=== PATIENT | female | born 1935 | race Caucasian/White ===

== ENCOUNTER 2017-02-10 11:02 | Inpatient (IN) ==
[2017-02-10 11:32] LABS: Basophils # 0.1 K/mcL (0.0-0.2); Basophils % 0.4 %; Eosinophils # 0.2 K/mcL (0.0-0.6); Eosinophils % 1.5 %; Hematocrit 39.2 % (35.3-44.9); Immature Granulocytes % 0.6 % (0-4); Lymphocytes # 2.3 K/mcL (0.6-4.6); Lymphocytes % 17.3 %; Mean Corpuscular HGB Conc 33.2 g/dL (31.6-35.5); Mean Corpuscular Hemoglobin 29.8 pg (28.0-33.3); Mean Corpuscular Volume 89.9 fL (83.0-100.0); Mean Platelet Volume 11.4 fL (9.4-12.4); Monocytes # 0.8 K/mcL (0.0-1.3); Monocytes % 5.8 %; Neutrophils # 9.7 K/mcL (1.6-8.9); Platelet Count 173 K/mcL (140-400); Red Blood Count 4.36 M/mcL (3.82-4.97); Red Cell Distribution Width 13.2 % (11.5-14.5); Segmented Neutrophils % 74.4 %
--- NOTE | 2017-02-10 11:46 | Emergency Department Note ---
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 No fever cough or sputum. Patient notices shooting sensation going down both her legs and just feeling very fatigued. Denies vomiting diarrhea or dysuria. No recent ill contacts exotic food or recent travel. Patient had a chemical stress test last week which was otherwise unremarkable. Patient says she has had some fluttering in her chest. Patient here for further evaluation - Related Data Home Medications Medication Instructions Recorded Confirmed Atorvastatin [Lipitor] 40 mg PO HS 02/10/17 02/16/17 Glimepiride [Amaryl] 4 mg PO BID 02/10/17 02/16/17 Lisinopril [Zestril] 40 mg PO DAILY 02/10/17 02/16/17 Omeprazole [PriLOSEC] 20 mg PO DAILY 02/10/17 02/16/17 SitaGLIPtin [Januvia] 100 mg PO DAILY 02/10/17 02/16/17 Tramadol HCl [Ultram] 50 mg PO BID PRN 02/10/17 02/16/17 Ascorbic Acid [Vitamin C] 100 mg PO DAILY 02/16/17 02/16/17 Calcium Carbonate/Vitamin D3 1 each PO DAILY 02/16/17 02/16/17 [Calcium 500 + Vit D Caplet] Levothyroxine [Synthroid] 100 mcg PO DAILY 02/16/17 02/16/17 Multivit-Min/Iron Fum/Folic AC 1 each PO DAILY 02/16/17 02/16/17 [Rulwf-[id number]-Ckqhqemi Tablet] Previous Rx's Medication Instructions Recorded Doxycycline 100 mg PO BIDWM #18 capsule 02/12/17 Metoprolol [Lopressor] 25 mg PO BID #60 tablet 02/12/17 amLODIPine [Norvasc] 5 mg PO DAILY #30 tablet 02/12/17 Aspirin 81 mg PO DAILY #30 tab.chew 02/17/17 Nitroglycerin 0.4 mg SL Q5MIN #30 tab.subl 02/17/17 Ticagrelor [Brilinta] 90 mg PO BID #60 tablet 02/17/17 Allergies Allergy/AdvReac Type Severity Reaction Status Date / Time Penicillins Allergy Rash Verified 02/10/17 11:13 metformin AdvReac See Verified 02/10/17 11:13 Comments All systems ED: reviewed and negative except as stated. Constitutional: Reports: weakness Cardiovascular: Reports: palpitations, dyspnea on exertion, orthopnea Past Medical History - Past Medical History Attestation: Yes The following information was validated with the patient. Source: patient, old records reviewed, obtained from family Medical history: Reports: diabetes, hypertension, thyroid disease Psychiatric history: Reports: no psych history - Social History Smoking Status: Never smoker Alcohol use: Reports: none Drug use: Reports: none Physical Exam - General Limitations: no limitations General appearance: alert, in distress - Head Head exam: atraumatic, normocephalic - Eye Eye exam: Present: normal appearance, PERRL - ENT ENT exam: normal exam, normal oropharynx - Neck Neck exam: Present: normal inspection, full ROM - Chest Chest inspection: Present: normal inspection - Respiratory Respiratory exam: Present: normal lung sounds bilaterally, respiratory distress - Cardiovascular Cardiovascular exam: Present: irregular rhythm (Patient had regular premature beats) - Abdominal Exam Abdominal exam: Present: soft, Non-Tender - Extremities Exam Extremities exam: Present: normal inspection, full ROM. Absent: pedal edema - Expanded Lower Extremity Exam Neurovascular/Tendon exam: Present: normal capillary refill Gait: not tested/not observed - Back Exam Back exam: Present: normal inspection, full ROM - Neurological Exam Neurological exam: Present: alert, oriented X3, CN II-XII intact - Psychiatric Psychiatric exam: Present: normal affect, normal mood Course Vital Signs Temperature 98.0 F 02/10/17 11:06 Pulse Rate 58 02/10/17 11:06 Respiratory Rate 18 02/10/17 11:06 Blood Pressure 165/95 02/10/17 11:06 O2 Sat by Pulse Oximetry 100 02/10/17 11:06 Temperature 97.9 F 02/12/17 14:58 Pulse Rate 86 02/12/17 14:58 Respiratory Rate 16 02/12/17 14:58 Blood Pressure 151/79 02/12/17 14:58 O2 Sat by Pulse Oximetry 96 02/12/17 14:58 Oxygen Delivery Oxygen Delivery Room Air Shortness of Breath/Dyspnea - Medical Records Medical records reviewed: Yes I reviewed the patient's medical records. - Lab Data Lab results reviewed: Yes I reviewed the patient's lab results. Result diagrams: 02/12/17 05:02 02/12/17 05:02 Lab Results 02/10/17 02/10/17 02/10/17 Range/Units 11:26 11:26 11:26 WBC 13.0 H (4.3-11.1) K/mcL RBC 4.36 (3.82-4.97) M/mcL Hgb 13.0 (11.5-15.4) g/dL Hct 39.2 (35.3-44.9) % MCV 89.9 (83.0-100.0) fL MCH 29.8 (28.0-33.3) pg MCHC 33.2 (31.6-35.5) g/dL RDW 13.2 (11.5-14.5) % Plt Count 173 (140-400) K/mcL MPV 11.4 (9.4-12.4) fL Immature Gran % 0.6 (0-4) % Seg Neutrophils % 74.4 % Lymphocytes % 17.3 % Monocytes % 5.8 % Eosinophils % 1.5 % Basophils % 0.4 % Neutrophils # 9.7 H (1.6-8.9) K/mcL Lymphocytes # 2.3 (0.6-4.6) K/mcL Monocytes # 0.8 (0.0-1.3) K/mcL Eosinophils # 0.2 (0.0-0.6) K/mcL Basophils # 0.1 (0.0-0.2) K/mcL D-Dimer (0-500) ng/mLFEU Sodium 135 L (136-145) mEq/L Potassium 5.0 H (3.5-4.5) mEq/L Chloride 100 (98-109) mEq/L Carbon Dioxide 24 (19-29) mEq/L BUN 27 H (7-20) mg/dL Creatinine 1.65 H (0.57-1.11) mg/dL Est GFR ( Amer) 36 L (> 60) Est GFR (Non-Af Amer) 30 L (> 60) BUN/Creatinine Ratio 16 (6-26) Glucose 390 H (70-99) mg/dL Calculated Osmolality 301 H (280-300) Lactic Acid 3.1 H (0.5-2.2) mmol/L Calcium 8.7 (8.6-10.8) mg/dL Troponin I (0-0.03) ng/mL B-Natriuretic Peptide (0-100) pg/mL Urine Color (Yellow) Urine Clarity (Clear) Urine pH (5.0-8.0) pH Units Ur Specific [place] (1.010-1.025) Urine Protein (Neg-Trace) mg/dL Urine Glucose (UA) (Normal) mg/dL Urine Ketones (Negative) mg/dL Urine Blood (Negative) Urine Nitrite (Negative) Urine Bilirubin (Negative) Urine Urobilinogen (Normal) mg/dL Ur Leukocyte Esterase (Negative) Urine Microscopic RBC (0-3) per hpf Urine Microscopic WBC (0-3) per hpf Ur Squamous Epith Cells (None-Few) per lpf Urine Bacteria (None-Few) per hpf Hyaline Casts (None-Few) per lpf 02/10/17 02/10/17 02/10/17 Range/Units 11:26 11:26 11:26 WBC (4.3-11.1) K/mcL RBC (3.82-4.97) M/mcL Hgb (11.5-15.4) g/dL Hct (35.3-44.9) % MCV (83.0-100.0) fL MCH (28.0-33.3) pg MCHC (31.6-35.5) g/dL RDW (11.5-14.5) % Plt Count (140-400) K/mcL MPV (9.4-12.4) fL Immature Gran % (0-4) % Seg Neutrophils % % Lymphocytes % % Monocytes % % Eosinophils % % Basophils % % Neutrophils # (1.6-8.9) K/mcL Lymphocytes # (0.6-4.6) K/mcL Monocytes # (0.0-1.3) K/mcL Eosinophils # (0.0-0.6) K/mcL Basophils # (0.0-0.2) K/mcL D-Dimer 802 H (0-500) ng/mLFEU Sodium (136-145) mEq/L Potassium (3.5-4.5) mEq/L Chloride (98-109) mEq/L Carbon Dioxide (19-29) mEq/L BUN (7-20) mg/dL Creatinine (0.57-1.11) mg/dL Est GFR ( Amer) (> 60) Est GFR (Non-Af Amer) (> 60) BUN/Creatinine Ratio (6-26) Glucose (70-99) mg/dL Calculated Osmolality (280-300) Lactic Acid (0.5-2.2) mmol/L Calcium (8.6-10.8) mg/dL Troponin I 0.02 (0-0.03) ng/mL B-Natriuretic Peptide 189 H (0-100) pg/mL Urine Color (Yellow) Urine Clarity (Clear) Urine pH (5.0-8.0) pH Units Ur Specific [place] (1.010-1.025) Urine Protein (Neg-Trace) mg/dL Urine Glucose (UA) (Normal) mg/dL Urine Ketones (Negative) mg/dL Urine Blood (Negative) Urine Nitrite (Negative) Urine Bilirubin (Negative) Urine Urobilinogen (Normal) mg/dL Ur Leukocyte Esterase (Negative) Urine Microscopic RBC (0-3) per hpf Urine Microscopic WBC (0-3) per hpf Ur Squamous Epith Cells (None-Few) per lpf Urine Bacteria (None-Few) per hpf Hyaline Casts (None-Few) per lpf 02/10/17 Range/Units 13:15 WBC (4.3-11.1) K/mcL RBC (3.82-4.97) M/mcL Hgb (11.5-15.4) g/dL Hct (35.3-44.9) % MCV (83.0-100.0) fL MCH (28.0-33.3) pg MCHC (31.6-35.5) g/dL RDW (11.5-14.5) % Plt Count (140-400) K/mcL MPV (9.4-12.4) fL Immature Gran % (0-4) % Seg Neutrophils % % Lymphocytes % % Monocytes % % Eosinophils % % Basophils % % Neutrophils # (1.6-8.9) K/mcL Lymphocytes # (0.6-4.6) K/mcL Monocytes # (0.0-1.3) K/mcL Eosinophils # (0.0-0.6) K/mcL Basophils # (0.0-0.2) K/mcL D-Dimer (0-500) ng/mLFEU Sodium (136-145) mEq/L Potassium (3.5-4.5) mEq/L Chloride (98-109) mEq/L Carbon Dioxide (19-29) mEq/L BUN (7-20) mg/dL Creatinine (0.57-1.11) mg/dL Est GFR ( Amer) (> 60) Est GFR (Non-Af Amer) (> 60) BUN/Creatinine Ratio (6-26) Glucose (70-99) mg/dL Calculated Osmolality (280-300) Lactic Acid (0.5-2.2) mmol/L Calcium (8.6-10.8) mg/dL Troponin I (0-0.03) ng/mL B-Natriuretic Peptide (0-100) pg/mL Urine Color Yellow (Yellow) Urine Clarity Clear (Clear) Urine pH 7.0 (5.0-8.0) pH Units Ur Specific [place] 1.010 (1.010-1.025) Urine Protein 100 H (Neg-Trace) mg/dL Urine Glucose (UA) 500 H (Normal) mg/dL Urine Ketones Negative (Negative) mg/dL Urine Blood Negative (Negative) Urine Nitrite Negative (Negative) Urine Bilirubin Negative (Negative) Urine Urobilinogen Normal (Normal) mg/dL Ur Leukocyte Esterase Negative (Negative) Urine Microscopic RBC 5-15 H (0-3) per hpf Urine Microscopic WBC 0-3 (0-3) per hpf Ur Squamous Epith Cells Many H (None-Few) per lpf Urine Bacteria None Seen (None-Few) per hpf Hyaline Casts None Seen (None-Few) per lpf - Radiology Data Radiology results reviewed: Yes I reviewed the patient's radiology results. - EKG Data EKG results narrative: Twelve-lead EKG interpreted without cardiology assistance shows the following: Sinus rhythm at 91 bpm with frequent ventricular premature complexes in a bigeminal pattern Normal TX and QT corrected. And QRS duration minus the PVCs. Mild ST depression. This rhythm is new compared to a prior EKG on 2516 which showed PVCs but not in a bigeminal pattern.
[2017-02-10 11:48] LABS: Calcium 8.7 mg/dL (8.6-10.8)
[2017-02-10] MEDS ORDERED: 0.9 % Sodium Chloride 500 ML IVC ONE (12:14)
[2017-02-10 13:33] LABS: Bilirubin,Urine Negative (Negative); Blood,Urine Negative (Negative); Clarity,Urine Clear (Clear); Color,Urine Yellow (Yellow); Glucose,Urine (UA) 500 mg/dL (Normal); Ketones,Urine Negative (Negative); Leukocyte Esterase,Urine Negative (Negative); Nitrite,Urine Negative (Negative); Protein,Urine 100 mg/dL (Neg-Trace); Urobilinogen,Urine Normal (Normal)
[2017-02-10 13:35] LABS: Bacteria,Urine None Seen per hpf (None-Few); Hyaline Casts,Urine None Seen per lpf (None-Few); Squamous Epithelial Cell,Urine Many per lpf (None-Few); WBC,Urine 0-3 per hpf (0-3)
--- NOTE | 2017-02-10 13:41 | Internal Med History&Physical ---
Date of Encounter: 02/10/17 Time of Encounter: 13:31 Assessment and Plan (1) Sepsis Current visit: Yes Status: Acute 82/female Has multiple comorbid conditions. Was recently on the last dose of steroid for long duration. Came to emergency room with dizziness and presyncopal episode. Noted that patient has a white blood count which is elevated to 17,000. Patient has elevated lactic acid : more than 3. Patient patient was treated aggressively in the emergency room with the IV fluids and antibiotics. Noted that lactic acid is downward trending. Plan: We will continue levofloxacin/Flagyl Patient is allergic to penicillin and Zosyn was tried but patient has heart/ warm feeling. We will repeat labs tomorrow. We will monitor her very closely. Qualifiers: Sepsis type: sepsis due to unspecified organism Qualified Code(s): A41.9 - Sepsis, unspecified organism (2) Dizziness Current visit: Yes Status: Acute Dizziness is likely secondary to sepsis. (3) PVCs (premature ventricular contractions) Current visit: Yes Status: Acute Patient has a ventricular bigeminy. She underwent cardiology evaluation previously. Cardiology consultation. recommended beta tequila by cardiology. We will follow recommendations from cardiology. (4) DVT prophylaxis Current visit: Yes Status: Acute SCD Medical decision making: This patient has a moderate to severe risk of worsening in spite of being on appropriate medication due to underlying complex medical condition. Internal Medicine - H&P: HPI Chief complaint: Dizziness Admitted From: Emergency Dept Plans for Post Hospital Care: Home History of present illness: PCP: Dr Peterson Nugent. Brief PMH: Diabetes, hypertension, dyslipidemia, mild obesity, extensive rash for which she was treated with steroids long duration 2 courses, patient just stop steroid couple of days ago. History of present illness: Patient was working in her kitchen this morning around 10 AM and at that point she realized that she is feeling dizzy. Patient was about to pass out. Patient did not pass out. Patient was under the impression she is going to get a fall but she break the fall by holding the wall and she never had a fall. Patient called her son and asked for help. The family use pretty close by and they came and evaluated the patient. Patient did not had a fall/patient did not had any injury. In view of the persistent dizziness since decided to bring patient to the hospital for further evaluation. Patient had a mild left-sided abdominal pain. Patient denies chest pain, nausea, vomiting, dizziness. Workup in the emergency room: Patient was evaluated in the emergency room. Basic labs are from. Noted that patient has a altered renal function. Noted that patient has an elevated d-dimer but that is an age-appropriate hence CT angiogram is not indicated. Also noted that patient has a elevated lactic acid. Reason for admission: Severe sepsis likely source unknown at this time but we will do more tests to find the source for the sepsis. Family history: Noncontributory Past Med Surg Social Fam HX - Past Medical History Medical history: diabetes, hypertension, thyroid disease Psychiatric history: no psych history - Social History Smoking Status: Never smoker Alcohol use: none Drug use: none - Family History Brother Living Status: Still Living Hx Family Cardiac Disorders: Yes Internal Medicine - H&P: Meds Atorvastatin [Lipitor] 40 mg PO HS 02/10/17 [History] Glimepiride [Amaryl] 4 mg PO BID 02/10/17 [History] Levothyroxine Sodium [Levoxyl] 100 mcg PO DAILY 02/10/17 [History] Lisinopril [Zestril] 40 mg PO DAILY 02/10/17 [History] Omeprazole [PriLOSEC] 20 mg PO DAILY 02/10/17 [History] SitaGLIPtin [Januvia] 100 mg PO DAILY 02/10/17 [History] Tramadol HCl [Ultram] 50 mg PO BID PRN 02/10/17 [History] cloNIDine HCl [Clonidine HCl] 0.2 mg PO BID 02/10/17 [History] predniSONE [PredniSONE] 10 mg PO AD 02/10/17 [History] 3 Allergy/AdvReac Type Severity Reaction Status Date / Time Penicillins Allergy Rash Verified 02/10/17 11:13 metformin AdvReac See Verified 02/10/17 11:13 Comments All Systems PM: A 10-system review of systems was performed and is negative for pertinent findings except as documented above in the HPI. - Constitutional Constitutional: no chills, no fever(s), no night sweats - EENT Eyes: no change in vision, no discharge, no pain, no photophobia Ears: no ear discharge, no ear pain, no tinnitus Nose, mouth and throat: no dysphagia, no nasal discharge, no neck pain, no sore throat - Cardiovascular Cardiovascular ROS IM: diaphoresis, lightheadedness, no chest pain, no dyspnea, no palpitations, no syncope - Respiratory Respiratory: no cough, no dyspnea, no wheezing, no excessive phlegm production - Gastrointestinal Gastrointestinal: no abdominal pain, no diarrhea, no hematemesis, no hematochezia, no melena, no nausea, no vomiting - Genitourinary Genitourinary: no change in urinary stream, no dysuria, no flank pain, no hematuria - Musculoskeletal Musculoskeletal ROS IM: no numbness, no tingling - Integumentary Integumentary IM: no rash, no unusual bruising - Neurological Neurological ROS: focal weakness, numbness, no confusion, no convulsions, no tingling, no tremor(s) - Hematologic/Lymphatic Hematologic/Lymphatic: no easy bruising - Constitutional Vitals: Temp Pulse Resp BP Pulse Ox 98.0 F 58 16 158/98 100 02/10/17 11:06 02/10/17 11:06 02/10/17 13:09 02/10/17 13:09 02/10/17 11:06 General appearance: Present: A&O X 3, pleasant, answers questions appropriately - Head Head exam: Present: atraumatic, normocephalic - Eye Eye exam: Present: PERRL, conjuntiva pink, sclera anicteric Pupils: Present: PERRL - Neck Neck exam general surgery: Present: supple, trachea midline. Absent: lymphadenopathy - Respiratory Respiratory exam: Present: CTAB. Absent: accessory muscle use, rales, rhonchi, wheezes - Cardiovascular Cardiovascular exam: Present: RRR, +S1, +S2. Absent: diastolic murmur, gallop, rubs, systolic murmur - GI/Abdominal GI/Abdominal exam: Present: normal bowel sounds, soft, no peritoneal signs. Absent: distended, tenderness - Extremities Exam Extremities exam: Present: warm, radial pulses palpable and symmetrical. Absent : calf tenderness, cyanotic, pedal edema - Neurological Exam Neurological exam: Present: CN II-XII intact, oriented X3, no focal deficits. Absent: pronater drift, facial droop, speech deficit - Skin Skin exam: Present: dry, intact Internal Med - H&P Results - Labs CBC & Chem 7: 02/10/17 11:26 02/10/17 11:26
[2017-02-10] MEDS ORDERED: Naloxone 0.4 MG/ML INJ IVP PRN (13:46)
[2017-02-10] MEDS ORDERED: Acetaminophen 325 MG TABLET PO PRN (13:46)
[2017-02-10] MEDS ORDERED: Levofloxacin 750 MG/150 ML 750 MG/150 ML BAG IVPB SCH (14:00)
--- NOTE | 2017-02-10 14:05 | Cardiology Consult Note ---
Date of Encounter: 02/10/17 Time of Encounter: 14:00 Assessment and Plan (1) Dizziness Current Visit: Yes Status: Acute Per Cardiology: Dizziness currently resolved. Denies any syncope or falls. Continue to monitor telemetry. Blood cultures pending per primary service for left arm rash. Blood presures stable, actually elevated. Check orthostatics. (2) PVCs (premature ventricular contractions) Current Visit: Yes Status: Acute Per Cardiology: ECG from December 2016 shows sinus rhythm with PVCs. Patient noted to have frequent PVCs and bigeminy on nuclear stress test 02/2017. Nuclear stress test negative for ischemia. K+ = 5.0, Mag pending. Recent TSH low 12/2016-- further management per primary service. Will monitor tele and check echo. Will discuss with Dr. Gutierrez potential for further ischemic eval. if deemed appropriate. Discussion w patient/family: The assessment and plan as outlined above was discussed with the patient and/or family members who expressed understanding and agreement. All questions were answered. Thank you for involving us in the care of your patient. Please call with any questions. History of Present Illness Consult date: 02/10/17 Requesting physician: Marcus Lion Consult reason: PVCs, SOB Chief complaint: Dizziness History of present illness: Ms. Romano is a 82 year old female with a relevant PMH: diabetes, hypertension, hypothyroidism, dyslipidemia. Noted to have recent "extensive rash for which she was treated with steroids long duration 2 courses". She denies any history of nicotine abuse. Reports family history with brother having CABG in his 60s, mother from CHF at 79, and dad with history of DC. Cardiology c/s for concerns of PVCs on stress test and dizziness. Patient reports she initially had outpatient stress test ordered for occasional left-sided chest twinges that last for a few seconds and subsided. She reports those symptoms have now resolved. Patient has pending cardiology consult as outpatient next week for frequent PVCs noted on stress test. She reports yesterday developed episode of dizziness that lasted for about 30 minutes with no other symptoms. She reports they reoccurred this morning with shortness of breath and lasted for many hours. She also reports experiencing some bilateral leg burning during these episodes. She denies any syncope or falls. Denies any chest pain. Currently reports some left-sided pain with deep inspiration. She reports negative stress test around 2009 and has never had heart catheterization. Reports recent treatment for rash to her left arm. Past Med Surg Social Fam HX - Past Medical History Attestation: Yes The following information was validated with the patient. Source: patient, old records reviewed, obtained from family Medical history: diabetes, hyperlipidemia, hypertension, thyroid disease Psychiatric history: no psych history - Social History Smoking Status: Never smoker Alcohol use: none Drug use: none Medications and Allergies Atorvastatin [Lipitor] 40 mg PO HS 02/10/17 [History] Glimepiride [Amaryl] 4 mg PO BID 02/10/17 [History] Levothyroxine Sodium [Levoxyl] 100 mcg PO DAILY 02/10/17 [History] Lisinopril [Zestril] 40 mg PO DAILY 02/10/17 [History] Omeprazole [PriLOSEC] 20 mg PO DAILY 02/10/17 [History] SitaGLIPtin [Januvia] 100 mg PO DAILY 02/10/17 [History] Tramadol HCl [Ultram] 50 mg PO BID PRN 02/10/17 [History] cloNIDine HCl [Clonidine HCl] 0.2 mg PO BID 02/10/17 [History] predniSONE [PredniSONE] 10 mg PO AD 02/10/17 [History] 3 Allergy/AdvReac Type Severity Reaction Status Date / Time Penicillins Allergy Rash Verified 02/10/17 11:13 metformin AdvReac See Verified 02/10/17 11:13 Comments All Systems Review: A 10-system review of systems was performed and is negative for pertinent findings except as documented above in the HPI. - Cardiovascular Cardiovascular: as per HPI, dyspnea at rest, lightheadedness - Integumentary Integumentary: erythema (right arm, itching), rash Physical Examination Vital Signs, Last 4 Hours Resp BP 02/10/17 13:09 16 158/98 General: Conversant, No Apparent Distress HEENT: Atraumatic, Normocephaly, Mucus Membranes Moist Neck: No JVD, Normal carotid pulses Cardiac: Reg Rate and Rhythm, Normal S1 and S2, No Murmur Lungs: Normal Breath Sounds, No Wheeze, Rales, Rhonchi Neuro: Alert and responsive, No focal deficits noted Abdomen: Soft, Non-Tender Skin: Other (generalized rash to L arm) Musculoskeletal: No Chest Wall Tenderness Extremities: No Clubbing, No Cyanosis, No Edema, Normal Pulses Results 02/10/17 11:26 02/10/17 11:26 Laboratory Tests 03/07/14 02/10/17 02/10/17 09:11 11:26 11:26 WBC 13.0 H D-Dimer Creatinine 1.45 H 1.65 H Est GFR (Non-Af Amer) 35 L 30 L Troponin I B-Natriuretic Peptide 02/10/17 02/10/17 02/10/17 11:26 11:26 11:26 WBC D-Dimer 802 H Creatinine Est GFR (Non-Af Amer) Troponin I 0.02 B-Natriuretic Peptide 189 H ITS Impressions Chest X-Ray 02/10/17 11:07 IMPRESSION: Stable mild cardiomegaly. No acute pulmonary disease. D/ / Raza Vinson MD / Raza Vinson MD Interpreting Provider: Raza Vinson MD Active Medications Acetaminophen (Tylenol) 650 mg PO Q6HR PRN PRN Reason: Mild Pain (1-3) Stop: 08/12/17 13:47 Atorvastatin Calcium (Lipitor) 40 mg PO HS KERRY Stop: 08/12/17 21:01 Docusate Sodium (Colace) 100 mg PO BID PRN PRN Reason: Constipation Stop: 08/12/17 13:47 Levofloxacin/Dextrose (Levaquin Premix 750mg/150 Ml) 750 mg in 150 mls @ 100 mls/hr IVPB Q48H KERRY PRN Reason: Protocol Stop: 08/12/17 14:01 Last Admin: 02/10/17 14:39 Dose: 100 mls/hr Piperacillin Sod/Tazobactam (Sod 3.375 gm/ Dextrose) 50 mls @ 12.5 mls/hr IVPB Q12H KERRY Stop: 08/12/17 15:01 Sodium Chloride (0.9 % Sodium Chloride) 1,000 mls @ 75 mls/hr IVC .[id number] KERRY Stop: 08/12/17 14:01 Last Admin: 02/10/17 14:38 Dose: 75 mls/hr Levothyroxine Sodium (Synthroid) 100 mcg PO 0630 KERRY Stop: 08/13/17 06:31 Naloxone HCl (Narcan) 0.4 mg IVP Q2MIN PRN PRN Reason: Opioid Reversal Stop: 08/12/17 13:47 - Imaging and Cardiology Stress Test: report reviewed - EKG Interpretation EKG results cardiology: personally reviewed (Sinus rhythm with bigeminy) Consult Discharge Plan - Plan Referrals: Peterson Tsang DO [Primary Care Provider] -
[2017-02-10] MEDS ORDERED: 0.9 % Sodium Chloride 1,000 ML ONE (14:06)
[2017-02-10] MEDS: 0.9 % Sodium Chloride 1,000 ML IVC SCH (14:38)
[2017-02-10] MEDS ORDERED: Piperacillin/Tazobactam 3.375 GM in D5% in Water 50 ML IVPB SCH (15:00)
--- NOTE | 2017-02-10 15:36 | Event Note ---
Date of Encounter: 02/10/17 Time of Encounter: 15:40 - Cardiology Event Note Discussed with Dr. Gutierrez, will add low dose BB for PVCs.
--- NOTE | 2017-02-10 18:31 | Electrocardiograph Report ---
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
[2017-02-10] MEDS: *HR* Glimepiride 4 MG TABLET PO SCH (20:55)
[2017-02-11] MEDS ORDERED: ALPRAZolam 0.5 MG TABLET PO ONE (00:53)
[2017-02-11 02:05] LABS: INR 1.1; Prothrombin Time 12.3 Seconds (9.4-12.1)
[2017-02-11 02:08] LABS: Activated Partial Thrombo Time 26.3 Seconds (26.0-36.0)
[2017-02-11 02:14] LABS: Basophils % 0.3 %; Eosinophils # 0.2 K/mcL (0.0-0.6); Eosinophils % 1.7 %; Hematocrit 37.8 % (35.3-44.9); Hemoglobin 12.5 g/dL (11.5-15.4); Immature Granulocytes % 0.5 % (0-4); Lymphocytes # 2.5 K/mcL (0.6-4.6); Mean Corpuscular HGB Conc 33.1 g/dL (31.6-35.5); Mean Corpuscular Hemoglobin 29.8 pg (28.0-33.3); Mean Platelet Volume 11.5 fL (9.4-12.4); Monocytes # 0.8 K/mcL (0.0-1.3); Neutrophils # 8.3 K/mcL (1.6-8.9); Platelet Count 150 K/mcL (140-400); Red Cell Distribution Width 13.3 % (11.5-14.5); Segmented Neutrophils % 69.5 %
[2017-02-11 02:16] LABS: Albumin 2.3 g/dL (3.5-5.0); Albumin/Globulin Ratio 0.8 (1.1-2.2); Bilirubin,Total 0.5 mg/dL (0.2-1.2); Calcium 8.9 mg/dL (8.6-10.8); Chol/HDL Ratio 3.6 (0-4.9); Globulin 2.8 g/dL (2.4-3.5); Phosphorous 2.9 mg/dL (2.3-4.7); Potassium 4.2 mEq/L (3.5-4.5); Total Protein 5.1 g/dL (6.0-8.3)
[2017-02-11] MEDS: 0.9 % Sodium Chloride 1,000 ML IVC SCH (03:45)
[2017-02-11] MEDS ORDERED: *HR* SitaGLIPtin 25 MG TABLET PO SCH (09:00)
[2017-02-11] MEDS: *HR* Glimepiride 4 MG TABLET PO SCH ×2 (09:31→20:57)
[2017-02-11] MEDS ORDERED: *HR* SitaGLIPtin 25 MG TABLET PO STA (12:11)
--- NOTE | 2017-02-11 14:27 | Cardiology Progress Note ---
Date of Encounter: 02/11/17 Time of Encounter: 14:24 Assessment and Plan (1) PVCs (premature ventricular contractions) Current Visit: Yes Status: Acute Per Cardiology: ECG from December 2016 shows sinus rhythm with PVCs. Patient noted to have frequent PVCs and bigeminy on nuclear stress test 02/2017. Nuclear stress test negative for ischemia. K+ = 5.0, Mag 1.0--will replace. Recent TSH low 12/2016-- further management per primary service. Low dose BB added--lopressor 12.5mg BID. 12 hr tele AVG HR 78, PVCs noted, 5 beat run NSVT. Increase Lopressor to 25mg BID. Troponins trended, 0.02 x 2, 0.04 then 0.02 x 2. 3rd troponin borderline-- nondiagnostic for ACS. Echo EF preserved, Mild concentric left ventricular hypertrophy, Mild left ventricular diastolic dysfunction. Cardiology signing off. Reconsult PRN. Follow-up as outpt as planned. (2) Accelerated hypertension Current Visit: Yes Status: Acute BP 260/146. One time dose of Hydralazine IV 15mg given. Will order IV PRN Hydralazine. Add norvasc 5mg daily, increase lopressor to 25mg BID. Further management per primary team. (3) Dizziness Current Visit: Yes Status: Acute Per Cardiology: Dizziness currently resolved. Denies any syncope or falls. Continue to monitor telemetry. Blood cultures pending per primary service for left arm rash. Discussion w patient/family: The assessment and plan as outlined above was discussed with the patient and/or family members who expressed understanding and agreement. All questions were answered. Thank you for involving us in the care of your patient. Please call with any questions. I will discuss all the above with Dr. Gutierrez and make changes as necessary. Subjective Principal diagnosis: Dizziness, PVCs Interval history: Pt denies dizziness overnight. Echo resulted--EF 55%, Normal LV chamber size and function, Mild concentric left ventricular hypertrophy, Mild left ventricular diastolic dysfunction, Normal right ventricular structure and function. No evidence of pulmonary hypertension, No significant valvular dysfunction. Troponins trended--0.02, 0.02, 0.04, 0.02, 0.02. Pt denies chest pain or dyspnea. 12 hr tele AVG HR 78, PVCs noted, 5 beat run NSVT. BP 260/147. Pt also reports frequent urination, feeling as though she is unable to empty her bladder completely. Objective Vital Signs, Last 4 Hours Temp Pulse Resp BP Pulse Ox 02/11/17 13:16 38 227/142 02/11/17 10:56 97.6 F 71 18 152/79 99 Vital Signs Temp Pulse Pulse Pulse Pulse Resp BP 02/11/17 13:16 38 227/142 02/11/17 10:56 97.6 F 71 18 152/79 02/11/17 10:17 42 195/66 02/11/17 07:30 97.8 F 41 16 184/66 02/11/17 02:59 97.5 F L 48 16 145/80 02/10/17 22:41 97.9 F 67 16 165/73 02/10/17 18:35 97.9 F 97 16 155/78 02/10/17 15:15 125 109 133 02/10/17 14:34 98.0 F 75 16 178/99 BP BP BP Pulse Ox 02/11/17 13:16 02/11/17 10:56 99 02/11/17 10:17 02/11/17 07:30 97 02/11/17 02:59 97 02/10/17 22:41 98 02/10/17 18:35 98 02/10/17 15:15 153/89 162/84 145/98 02/10/17 14:34 99 Intake and Output 02/10/17 02/11/17 02/11/17 23:59 07:59 15:59 Intake Total 243.1 / 243.1 1000 / 1000 Output Total 500 / 500 400 / 400 Balance -256.9 / -256.9 1000 / 1000 -400 / -400 Intake: IV Fluids 3.1 / 3.1 1000 / 1000 0.9 % Sodium Chloride 1,000 ML 1000 / 1000 @ 75 mls/hr IVC .[id number] KERRY Rx #:[id number] Zosyn 3.375 GM In Dextrose 5% ( 3.1 / 3.1 ADD-[place]) 50 ML @ 12.5 mls/ hr IVPB Q12H KERRY Rx#:[id number] Oral 240 / 240 Output: Urine 500 / 500 400 / 400 Other: Meal Dinner NPO Percent of Meal Consumed 100% Stool Size Moderate Stool Consistency soft Stool Characteristics Normal for Patient Stool Color Brown # Voids 1 1 Weight 83.189 kg Blood Glucose* 335 254 Patient Weight 02/11/17 23:59 Weight 83.189 kg General: Conversant, No Apparent Distress HEENT: Atraumatic, Normocephaly, Mucus Membranes Moist Neck: No JVD, Normal carotid pulses Cardiac: Reg Rate and Rhythm, Normal S1 and S2, No Murmur Lungs: Normal Breath Sounds, No Wheeze, Rales, Rhonchi Neuro: Alert and responsive, No focal deficits noted Abdomen: Soft, Non-Tender Skin: No rashes noted on visualized skin Musculoskeletal: No Chest Wall Tenderness Extremities: No Clubbing, No Cyanosis, No Edema, Normal Pulses Results 02/11/17 01:39 02/11/17 01:39 Lab Results 02/10/17 02/10/17 02/11/17 14:12 20:52 01:39 WBC Hgb Hct Plt Count INR APTT Sodium Potassium Chloride Carbon Dioxide BUN Creatinine Glucose Calcium Magnesium Total Bilirubin AST ALT Alkaline Phosphatase Troponin I 0.02 0.04 H* 0.02 B-Natriuretic Peptide 02/11/17 02/11/17 02/11/17 01:39 01:39 01:39 WBC 12.0 H Hgb 12.5 Hct 37.8 Plt Count 150 INR 1.1 APTT 26.3 Sodium 138 Potassium 4.2 Chloride 105 Carbon Dioxide 25 BUN 28 H Creatinine 1.44 H Glucose 217 H Calcium 8.9 Magnesium 1.0 L Total Bilirubin 0.5 AST 17 ALT 21 Alkaline Phosphatase 72 Troponin I B-Natriuretic Peptide 02/11/17 02/11/17 01:39 12:34 WBC Hgb Hct Plt Count INR APTT Sodium Potassium Chloride Carbon Dioxide BUN Creatinine Glucose Calcium Magnesium Total Bilirubin AST ALT Alkaline Phosphatase Troponin I 0.02 B-Natriuretic Peptide 242 H Short CBC 02/11/17 Range/Units 01:39 WBC 12.0 H (4.3-11.1) K/mcL Hgb 12.5 (11.5-15.4) g/dL Hct 37.8 (35.3-44.9) % Plt Count 150 (140-400) K/mcL Neutrophils # 8.3 (1.6-8.9) K/mcL BMP 02/11/17 Range/Units 01:39 Sodium 138 (136-145) mEq/L Potassium 4.2 (3.5-4.5) mEq/L Chloride 105 (98-109) mEq/L Carbon Dioxide 25 (19-29) mEq/L BUN 28 H (7-20) mg/dL Creatinine 1.44 H (0.57-1.11) mg/dL Glucose 217 H (70-99) mg/dL Calcium 8.9 (8.6-10.8) mg/dL Cardiac Enzymes 02/11/17 02/11/17 02/10/17 Range/Units 12:34 01:39 20:52 Troponin I 0.02 0.02 0.04 H* (0-0.03) ng/mL 02/10/17 Range/Units 14:12 Troponin I 0.02 (0-0.03) ng/mL Liver Function 02/11/17 Range/Units 01:39 Total Bilirubin 0.5 (0.2-1.2) mg/dL AST 17 (5-34) Units/L ALT 21 (0-55) Units/L Alkaline Phosphatase 72 (38-126) Units/L Albumin 2.3 L (3.5-5.0) g/dL Impressions Echocardiogram 02/10/17 14:40 Impressions: LVEF 55%. Normal LV chamber size and function. Mild concentric left ventricular hypertrophy. Mild left ventricular diastolic dysfunction. Normal right ventricular structure and function. No evidence of pulmonary hypertension. No significant valvular dysfunction. Left Ventricular Wall Motion: Rest Echo Findings All wall segments showed normal motion. Findings: Study Quality * Technically adequate exam. ECG Findings * Sinus rhythm with PVCs. Left Ventricle * LVEF 55%. * Normal LV chamber size and function. * Mild concentric left ventricular hypertrophy. * Mild left ventricular diastolic dysfunction. Right Ventricle * Normal right ventricular structure and function. Left Atrium * Mildly dilated left atrium. Right Atrium * Normal right atrial size. Aortic Valve * Trileaflet aortic valve. * No aortic regurgitation. * No aortic stenosis. Mitral Valve * Mild mitral annular calcification. * No mitral regurgitation. * No mitral stenosis. Tricuspid Valve * Normal tricuspid valve structure and function. * Trace tricuspid regurgitation. * No evidence of pulmonary hypertension. Pulmonic Valve * Pulmonic valve not well visualized. Aorta * Normally sized aortic root. Pericardium * The pericardium appears normal. IVC * Normal IVC dimensions and inspiratory collapse. Pulmonary Artery * Normal visualized portions of the main pulmonary artery. Active Medications Acetaminophen (Tylenol) 650 mg PO Q6HR PRN PRN Reason: Mild Pain (1-3) Stop: 08/12/17 13:47 Amlodipine Besylate (Norvasc) 5 mg PO DAILY KERRY PRN Reason: Protocol Stop: 08/13/17 14:31 Atorvastatin Calcium (Lipitor) 40 mg PO HS KERRY Stop: 08/12/17 21:01 Last Admin: 02/10/17 20:55 Dose: 40 mg Docusate Sodium (Colace) 100 mg PO BID PRN PRN Reason: Constipation Stop: 08/12/17 13:47 Glimepiride (Amaryl) 4 mg PO BID [facility] Stop: 08/12/17 21:01 Last Admin: 02/11/17 09:31 Dose: 4 mg Levofloxacin/Dextrose (Levaquin Premix 750mg/150 Ml) 750 mg in 150 mls @ 100 mls/hr IVPB Q48H KERRY PRN Reason: Protocol Stop: 08/12/17 14:01 Last Admin: 02/10/17 14:39 Dose: 100 mls/hr Sodium Chloride (0.9 % Sodium Chloride) 1,000 mls @ 75 mls/hr IVC .[id number] [facility] Stop: 08/12/17 14:01 Last Admin: 02/11/17 03:45 Dose: 75 mls/hr Metronidazole (Flagyl Premix 500 Mg/100 Ml) 500 mg in 100 mls @ 100 mls/hr IVPB Q8H [facility] Stop: 08/13/17 18:01 Levothyroxine Sodium (Synthroid) 100 mcg PO 0630 [facility] Stop: 08/13/17 06:31 Last Admin: 02/11/17 06:03 Dose: 100 mcg Metoprolol Tartrate (Lopressor) 12.5 mg PO BID [facility] Stop: 08/12/17 21:01 Last Admin: 02/11/17 09:32 Dose: 12.5 mg Naloxone HCl (Narcan) 0.4 mg IVP Q2MIN PRN PRN Reason: Opioid Reversal Stop: 08/12/17 13:47 Sitagliptin Phosphate (Januvia) 100 mg PO DAILY [facility] Stop: 08/14/17 09:01 - Imaging and Cardiology Echo: report reviewed - EKG Interpretation EKG results cardiology: personally reviewed, other (12 hr tele AVG HR 67, PVCs, 5 beat run NSVT.) - VTE Documentation of Mechanical Device: Graduated compression elastic hosiery Consult Discharge Plan - Plan Referrals: Peterson Tsang DO [Primary Care Provider] -
[2017-02-11] MEDS ORDERED: Magnesium Sulfate 2 GM in D5% in Water 100 ML IVPB ONE (14:41)
[2017-02-11] MEDS ORDERED: clonazePAM 0.5 MG TABLET PO ONE (16:10)
[2017-02-11] MEDS ORDERED: amLODIPine 5 MG TABLET PO ONE (16:11)
--- NOTE | 2017-02-11 16:19 | Internal Med Progress Note ---
Date of Encounter: 02/11/17 Time of Encounter: 16:17 - Assessment and plan (1) Dizziness Current Visit: Yes Status: Acute Assessment and plan: Could be secondary to an arrhythmia. Could also be secondary to accelerated hypertension and sudden changes in blood pressure. Continue cardiac monitoring. Add antihypertensive medication. (2) PVCs (premature ventricular contractions) Current Visit: Yes Status: Acute Assessment and plan: Appreciate cardiology recommendations. Continue with metoprolol. (3) Sepsis Current Visit: Yes Status: Acute Assessment and plan: She fit SIRS criteria on presentation. Unclear source. She was started on Levaquin and Flagyl. She had somewhat of an adverse reaction to Levaquin, unclear true allergy however I will stop the Levaquin start doxycycline to cover respiratory source. Follow-up blood cultures and if negative at 24 hours . We will stop antibiotics. Qualifiers: Sepsis type: sepsis due to unspecified organism Qualified Code(s): A41.9 - Sepsis, unspecified organism (4) DVT prophylaxis Current Visit: Yes Status: Acute Assessment and plan: We will order SCDs. I will avoid anticoagulants due to hypertensive crisis and conceivably increased risk of intracranial bleeding. (5) Accelerated hypertension Current Visit: Yes Status: Acute Assessment and plan: IV hydralazine. Continue metoprolol. Add Norvasc. (6) Anxiety about health Current Visit: Yes Status: Acute Assessment and plan: I explained the plan, working diagnosis and test results in detail to the patient and her family member today. She still remains very anxious about her health. I will prescribe a small dose clonazepam and watch carefully for her response to this medication. - Subjective Interval history: Patient presented to the hospital for near syncope and found to have elevated troponin. Currently her blood pressure is elevated at 227/124. She reports anxiety and mild shortness of breath. She received treatment with Levaquin yesterday for presumed sepsis and she reported that shortness of breath triggered by infusion. - Constitutional Vitals: Temp Pulse Resp BP Pulse Ox 98.0 F 71 18 138/74 93 02/11/17 15:39 02/11/17 15:39 02/11/17 15:39 02/11/17 15:39 02/11/17 15:39 General appearance: Present: A&O X 3, pleasant, answers questions appropriately - Respiratory Respiratory exam: Present: CTAB. Absent: accessory muscle use, rales, rhonchi, wheezes - Cardiovascular Cardiovascular exam: Present: RRR, +S1, +S2. Absent: diastolic murmur, gallop, rubs, systolic murmur - GI/Abdominal GI/Abdominal exam: Present: normal bowel sounds, soft, no peritoneal signs. Absent: distended, tenderness - Extremities Exam Extremities exam: Present: warm, radial pulses palpable and symmetrical. Absent : calf tenderness, cyanotic, pedal edema Internal Medicine: Result - Labs CBC & Chem 7: 02/11/17 01:39 02/11/17 01:39 Labs: Short CBC 02/11/17 Range/Units 01:39 WBC 12.0 H (4.3-11.1) K/mcL Hgb 12.5 (11.5-15.4) g/dL Hct 37.8 (35.3-44.9) % Plt Count 150 (140-400) K/mcL Neutrophils # 8.3 (1.6-8.9) K/mcL BMP 02/11/17 01:39 Sodium 138 Potassium 4.2 Chloride 105 Carbon Dioxide 25 BUN 28 H Creatinine 1.44 H Glucose 217 H Calcium 8.9 Cardiac Enzymes 02/10/17 02/11/17 02/11/17 Range/Units 20:52 01:39 12:34 Troponin I 0.04 H* 0.02 0.02 (0-0.03) ng/mL Liver Function 02/11/17 Range/Units 01:39 Total Bilirubin 0.5 (0.2-1.2) mg/dL AST 17 (5-34) Units/L ALT 21 (0-55) Units/L Alkaline Phosphatase 72 (38-126) Units/L Albumin 2.3 L (3.5-5.0) g/dL - ABG Interpretation ABG results: PT/INR, D-dimer PT 12.3 Seconds (9.4-12.1) H 02/11/17 01:39 D-Dimer 802 ng/mLFEU (0-500) H 02/10/17 11:26 - Impressions Impressions Echocardiogram 02/10/17 14:40 Impressions: LVEF 55%. Normal LV chamber size and function. Mild concentric left ventricular hypertrophy. Mild left ventricular diastolic dysfunction. Normal right ventricular structure and function. No evidence of pulmonary hypertension. No significant valvular dysfunction. Left Ventricular Wall Motion: Rest Echo Findings All wall segments showed normal motion. Findings: Study Quality * Technically adequate exam. ECG Findings * Sinus rhythm with PVCs. Left Ventricle * LVEF 55%. * Normal LV chamber size and function. * Mild concentric left ventricular hypertrophy. * Mild left ventricular diastolic dysfunction. Right Ventricle * Normal right ventricular structure and function. Left Atrium * Mildly dilated left atrium. Right Atrium * Normal right atrial size. Aortic Valve * Trileaflet aortic valve. * No aortic regurgitation. * No aortic stenosis. Mitral Valve * Mild mitral annular calcification. * No mitral regurgitation. * No mitral stenosis. Tricuspid Valve * Normal tricuspid valve structure and function. * Trace tricuspid regurgitation. * No evidence of pulmonary hypertension. Pulmonic Valve * Pulmonic valve not well visualized. Aorta * Normally sized aortic root. Pericardium * The pericardium appears normal. IVC * Normal IVC dimensions and inspiratory collapse. Pulmonary Artery * Normal visualized portions of the main pulmonary artery. - VTE Documentation of Mechanical Device: Graduated compression elastic hosiery Consult Discharge Plan - Plan Referrals: Peterson Tsang DO [Primary Care Provider] -
[2017-02-11] MEDS: amLODIPine 5 MG TABLET PO SCH (17:14)
--- NOTE | 2017-02-11 18:45 | Electrocardiograph Report ---
[place] [id number] Test Date: 2017-02-10 Pat Name: Ashly Romano Department: 113 Room: 3B23 Gender: F Night Shift: : 1935 Requested By: Jameson Francois Order Number: [id number] Reading MD: Chuck Gutierrez MD Measurements Intervals [place] Rate: 79 P: 54 IA: 162 QRS: -12 QRSD: 77 T: 18 QT: 363 QTc: 398 Interpretive Statements SINUS RHYTHM WITH OCCASIONAL VENTRICULAR PREMATURE COMPLEXES Electronically Signed On 02-11-2017 18:44:13 EST by Chuck Gutierrez MD
[2017-02-11] MEDS: MetroNIDAZOLE 500 MG/100 ML 500 MG/100 ML BAG IVPB SCH (20:07)
[2017-02-11] MEDS: Doxycycline 100 MG in 0.9 % Sodium Chloride 100 ML IVPB SCH (22:42)
[2017-02-11] MEDS ORDERED: hydrOXYzine pamoate 25 MG CAPSULE PO PRN (23:33)
[2017-02-12] MEDS: MetroNIDAZOLE 500 MG/100 ML 500 MG/100 ML BAG IVPB SCH ×2 (03:34→09:46)
[2017-02-12 05:49] LABS: Basophils % 0.3 %; Eosinophils # 0.3 K/mcL (0.0-0.6); Eosinophils % 2.8 %; Hematocrit 40.2 % (35.3-44.9); Immature Granulocytes % 0.5 % (0-4); Lymphocytes # 2.7 K/mcL (0.6-4.6); Lymphocytes % 21.5 %; Mean Corpuscular HGB Conc 32.3 g/dL (31.6-35.5); Mean Corpuscular Hemoglobin 29.5 pg (28.0-33.3); Mean Corpuscular Volume 91.4 fL (83.0-100.0); Mean Platelet Volume 11.5 fL (9.4-12.4); Monocytes # 1.1 K/mcL (0.0-1.3); Monocytes % 8.8 %; Neutrophils # 8.2 K/mcL (1.6-8.9); Platelet Count 162 K/mcL (140-400); Red Cell Distribution Width 13.6 % (11.5-14.5); Segmented Neutrophils % 66.1 %
[2017-02-12 06:13] LABS: Calcium 8.3 mg/dL (8.6-10.8); Potassium 3.8 mEq/L (3.5-4.5)
[2017-02-12] MEDS ORDERED: *HR* SitaGLIPtin 100 MG TABLET PO SCH (09:00)
[2017-02-12] MEDS: Doxycycline 100 MG in 0.9 % Sodium Chloride 100 ML IVPB SCH (09:27)
[2017-02-12] MEDS: *HR* Glimepiride 4 MG TABLET PO SCH (09:45)
[2017-02-12] MEDS: amLODIPine 5 MG TABLET PO SCH (09:45)
[2017-02-12] MEDS ORDERED: Doxycycline 100 MG in 0.9 % Sodium Chloride 100 ML IVPB SCH (10:00)
[2017-02-12 15:02] VITALS: BP 151/79
--- NOTE | 2017-02-12 16:21 | Discharge Summary ---
Date of Encounter: 02/12/17 Time of Encounter: 16:17 - Discharge Diagnosis (1) Dizziness Priority: Secondary Status: Acute (2) PVCs (premature ventricular contractions) Priority: Secondary Status: Acute (3) Sepsis Priority: Primary Status: Acute Qualifiers: Sepsis type: sepsis due to unspecified organism Qualified Code(s): A41.9 - Sepsis, unspecified organism (4) DVT prophylaxis Priority: Secondary Status: Acute (5) Accelerated hypertension Priority: Secondary Status: Acute (6) Anxiety about health Priority: Secondary Status: Acute (7) Cellulitis of arm, left Priority: Secondary Status: Acute (8) Elevated troponin Priority: Secondary Status: Acute (9) Chronic kidney disease, stage 3 Priority: Secondary Status: Acute - Discharge Medications Prescriptions: amLODIPine [Norvasc] 5 mg PO DAILY #30 tablet Doxycycline 100 mg PO BIDWM #18 capsule Metoprolol [Lopressor] 25 mg PO BID #60 tablet Home Medications: Atorvastatin [Lipitor] 40 mg PO HS 02/10/17 [History] Glimepiride [Amaryl] 4 mg PO BID 02/10/17 [History] Levothyroxine Sodium [Levoxyl] 100 mcg PO DAILY 02/10/17 [History] Lisinopril [Zestril] 40 mg PO DAILY 02/10/17 [History] Omeprazole [PriLOSEC] 20 mg PO DAILY 02/10/17 [History] SitaGLIPtin [Januvia] 100 mg PO DAILY 02/10/17 [History] Tramadol HCl [Ultram] 50 mg PO BID PRN 02/10/17 [History] cloNIDine HCl [Clonidine HCl] 0.2 mg PO BID 02/10/17 [History] Doxycycline 100 mg PO BIDWM #18 capsule 02/12/17 [Rx] Metoprolol [Lopressor] 25 mg PO BID #60 tablet 02/12/17 [Rx] amLODIPine [Norvasc] 5 mg PO DAILY #30 tablet 02/12/17 [Rx] Allergies/Adverse Reactions: 3 Allergy/AdvReac Type Severity Reaction Status Date / Time Penicillins Allergy Rash Verified 02/10/17 11:13 metformin AdvReac See Verified 02/10/17 11:13 Comments Procedures/tests Complete & Pending: Procedures Performed prior 72 hours Category Date Time Status ECG 12 lead ECG [ECG] Routine Y 02/10/17 22:45 Completed EV echocardiogram Routine Y 02/10/17 14:40 Completed Date of admission: 02/10/17 13:46 Primary care physician: Queta Mahmood - Patient Status Disposition: Home, Self-Care Condition: Fair Functional capacity at discharge: independent ambulation Overall status at discharge: patient is back to baseline - Discharge Instructions Follow Up With: Peterson Tsang DO [Primary Care Provider] - - Diet and Activity Activity: increase activity as tolerated Diet: diabetic diet, low fat, low cholesterol, low salt diet Hospital course: Ms. Romano is a 82 year old female with past medical history significant for diabetes, hypertension and chronic renal insufficiency who presented to the hospital for dizziness. She had been receiving a steroid taper prescribed for an arm rash for the last 2 weeks and just completed a second course. She suddenly felt dizzy and lightheaded faint, did not lose consciousness. She was brought to the hospital for evaluation. Initial workup found elevated white blood cell count and elevated lactic acid level. Chest x-ray was clear. Urinalysis showed no evidence of UTI. She was diagnosed with presumed sepsis and admitted to the medical service and treated with IV fluids and broad- spectrum IV antibiotics. She had an adverse reaction to Levaquin and therefore this was discontinued and replaced with doxycycline. During this hospitalization her blood pressure spiked to 227/142. She was treated with amlodipine and metoprolol was started. Cardiology was consulted for elevated troponin. Troponin trend showed a flat downwards profile. This was nondiagnostic for ACS and likely related to hypertensive crisis. For accelerated hypertension she was treated with several doses of IV hydralazine and she responded well. Blood pressure is now well controlled with amlodipine and metoprolol and she will be restarted on home dose of lisinopril. Clonidine has been stopped during this hospitalization and will not be restarted due to high risk for rebound hypertension. She was noted to have a left upper extremity palpable erythematous, slightly raised and warm to palpation rash consistent with mild cellulitis for which she will be treated with oral doxycycline. She has been afebrile throughout his hospitalization and her blood cultures are currently negative. Blood pressure is within normal range and the patient is asymptomatic. She will be discharged close follow-up with PCP. - Time Spent with Patient Total time spent providing and/or coordinating discharge services: Greater than 30 minutes - Constitutional Vitals: Temp Pulse Resp BP Pulse Ox 97.9 F 86 16 151/79 96 02/12/17 14:58 02/12/17 14:58 02/12/17 14:58 02/12/17 14:58 02/12/17 14:58 General appearance: Present: A&O X 3, pleasant, answers questions appropriately - Cardiovascular Cardiovascular exam: Present: RRR, +S1, +S2. Absent: diastolic murmur, gallop, rubs, systolic murmur - GI/Abdominal GI/Abdominal exam: Present: normal bowel sounds, soft, no peritoneal signs. Absent: distended, tenderness - Extremities Exam Extremities exam: Present: warm, radial pulses palpable and symmetrical. Absent : calf tenderness, cyanotic, pedal edema - Skin Additional comments: Left arm circumscribed rash with no fluctuance or open wounds. No drainage. - VTE Documentation of Mechanical Device: Graduated compression elastic hosiery
[2017-02-12] MEDS ORDERED: Doxycycline 100 MG CAPSULE PO SCH (17:00)
== END 2017-02-12 14:36 | disposition home or self-care (01) | DRG 872 ==
LOC: EMEROO 11:02 → 3BNU 11:02 → SUATTDRO 13:46 → 3BNU 14:33
PROVIDERS: ADMIT Internal Medicine; ATTEND Internal Medicine

== ENCOUNTER 2018-10-06 17:19 | Observation (INO) ==
--- NOTE | 2018-10-06 18:08 | Emergency Department Note ---
Disposition Clinical Impression: Chest pain Disposition: Admitted As Inpatient Referrals: Peterson Tsang DO [Primary Care Provider] - Time of Disposition: 20:44 Chest Pain HPI - General Stated Complaint: Chest Pain, back pain Time Seen by Provider: 10/06/18 17:26 Source: patient Limitations: no limitations - History of Present Illness HPI Narrative: Patient is 83-year-old female presents to the emergency room with complaints of chest pain. The patient states around 4:00 today she was at rest when she felt a sharp pain into the left center portion of the chest. The patient states that soon began radiating to her scapular region in the back. The patient denies any abdominal pain. The patient states that she did have some nausea earlier today, no vomiting. Patient apparently did take a full dose aspirin, the patient apparently did take 3 nitroglycerin as well, said nothing for her pain. She does have a history of coronary artery disease. Patient states that this is not typical type pain that she has had with previous heart events. Patient states that the pain has subsided currently in the emergency room. She denies any current pain in the emergency room. At its worst the pain level was 7. The patient denies any abdominal pain. The patient states that after the pain started she felt like she needed to have a bowel movement but she could not go she only passed gas she states. She denies any focal weakness, numbness, fever, chills. She denies any significant shortness of breath headaches. Patient denies any other recent illness. However this morning she said that she woke up she just was not feeling very well. Severity scale (1-10): 7 - Related Data Home Medications Medication Instructions Recorded Confirmed Glimepiride [Amaryl] 4 mg PO BID 02/10/17 08/09/18 Omeprazole [PriLOSEC] 20 mg PO DAILY 02/10/17 08/09/18 Tramadol HCl [Ultram] 50 mg PO HS PRN 02/10/17 08/09/18 Calcium Carbonate/Vitamin D3 2 each PO QPM 02/16/17 08/09/18 [Calcium 500 + Vit D Caplet] Multivit-Min/Iron Fum/Folic AC 1 each PO DAILY 02/16/17 08/09/18 [Puvkk-Pmrtsic-Rsfpxvwy Tablet] C,E,Zinc,Copper 11/Cxnef2m/Lut 1 cap PO DAILY 08/09/18 08/09/18 [Ocuvite Adult 50 Plus Softgel] Clopidogrel [Plavix] 75 mg PO DAILY 08/09/18 08/09/18 Levothyroxine [Synthroid] 150 mcg PO QAM 08/09/18 08/09/18 Lisinopril [Zestril] 20 mg PO BID 08/09/18 08/09/18 Simvastatin [Zocor] 40 mg PO QPM 08/09/18 08/09/18 Sitagliptin Phosphate [Januvia] 50 mg PO DAILY 08/09/18 08/09/18 hydrALAZINE [HydrALAZINE] 25 mg PO QPM 08/09/18 08/09/18 hydrALAZINE [HydrALAZINE] 50 mg PO QAM 08/09/18 08/09/18 Previous Rx's Medication Instructions Recorded Nitroglycerin 0.4 mg SL Q5MIN #30 tab.subl MDD 02/17/17 X3 DOSES CALL 911 Allergies Allergy/AdvReac Type Severity Reaction Status Date / Time hydrocodone [From Vicodin] Allergy Itching Verified 08/09/18 08:53 Penicillins Allergy Rash, Verified 08/09/18 08:53 swelling pioglitazone [From Actos] Allergy SOB Verified 08/09/18 08:53 diltiazem [From Cardizem] AdvReac Itching Verified 08/09/18 09:30 metformin AdvReac Dizziness Verified 08/09/18 08:53 Review of Systems: As mentioned per history of present illness and as follows. Constitutional: Negative for chills or fever HENT: Negative for sore throat. Eyes: Negative for visual disturbance Respiratory: Negative for shortness of breath. Cardiovascular: Negative for palpitations. Gastrointestinal: Negative for abdominal pain Genitourinary: Negative for dysuria Musculoskeletal: Negative for back pain. Skin: Negative for rash. Neurological: Negative for focal weakness Psychiatric/Behavioral: Negative for depression Chest Pain PMH - Past Medical History Medical history: Reports: arthritis, cancer, coronary artery disease, diabetes, GERD, hyperlipidemia, hypertension, renal disease, thyroid disease, other Surgical history: Reports: angioplasty/stent, appendectomy, cancer surgery, cataract, cholecystectomy, hysterectomy, knee replacement, other Psychiatric history: Reports: no psych history - Social History Smoking Status: Never smoker Alcohol use: Reports: none Drug use: Reports: none Physical Exam PHYSICAL EXAM Constitutional: Well developed, Well nourished, No acute distress, Non-toxic appearance. HENT: Normocephalic, Atraumatic, Bilateral external ears normal, Oropharynx moist, No oral exudates, Nose normal. Neck- Normal range of motion, No tenderness, Supple. Eyes: PERRL, EOMI, Conjunctiva normal,. Cardiovascular: Regular rate with irregular rhythm without clicks, rubs, gallops or murmurs. Respiratory: Normal breath sounds, No respiratory distress, No wheezing, rhonchi, or crackles. GI: Soft, nontender, no evidence of guarding or peritoneal signs. Bowel sounds are active. Musculoskeletal: Good range of motion in all major joints. No tenderness to palpation or major deformities noted. +5/5 strength noted to all extremities. Integument: Warm, Dry, No erythema, No rash. No edema. Neurologic: Alert & oriented x 3, Normal sensory function, No focal deficits noted. CN II-XII grossly intact. - General Limitations: no limitations General appearance: alert, in no apparent distress Course Vital Signs Temperature 97.8 F 10/06/18 17:40 Pulse Rate 97 10/06/18 17:40 Respiratory Rate 16 10/06/18 17:40 Blood Pressure 179/90 10/06/18 17:40 O2 Sat by Pulse Oximetry 94 10/06/18 17:40 Temperature 97.8 F 10/06/18 17:40 Pulse Rate 97 10/06/18 17:40 Respiratory Rate 16 10/06/18 17:40 Blood Pressure 179/90 10/06/18 17:40 O2 Sat by Pulse Oximetry 94 10/06/18 17:40 Oxygen Delivery Oxygen Delivery Room Air Chest Pain - MDM Narrative Medical decision making narrative: EKG was obtained that showed evidence of sinus tachycardia 102 beats a minute, patient does have bigeminy noted on the EKG. Do not appreciate ST elevation or significant depression and EKG. Do not cruciate T-wave inversion. RI and QT intervals within normal limits. Interpreted by myself Patient does have negative chest x-ray overall, negative troponin. Patient is now resting here pain-free at reevaluation at 1940 hrs. Patient however is moderate risk or from the Romero score standpoint. Patient has known coronary artery disease. At this time the patient has not had any other further evaluation since February 2017 regarding her cardiac standpoint. I do feel the patient would benefit from further rule out in the hospital. Patient will be admitted for observation for further cardiac rule out. Patient did have a rhythm change in emergency room, the patient did have a repeat EKG that showed what appears to be sinus arrhythmia. The patient does have PVCs noted, there are multifocal in nature. RI appears to be slightly prolonged, QT within normal limits. At this time I do believe the patient was further cardiac evaluation. I do not believe the patient has any evidence of PE. Patient has no chest pain or shortness of breath here currently in emergency room and she is otherwise asymptomatic. Patient will be admitted in stable condition to the floor. Case was discussed in full detail with the hospitalist. Final impression 1. Chest pain, precordial - Lab Data Result diagrams: 10/06/18 17:46 10/06/18 17:46 Lab Results 10/06/18 10/06/18 10/06/18 Range/Units 17:46 17:46 17:46 WBC 8.1 (4.3-11.1) K/mcL RBC 3.55 L (3.82-4.97) M/mcL Hgb 10.0 L (11.5-15.4) g/dL Hct 32.5 L (35.3-44.9) % MCV 91.5 (83.0-100.0) fL MCH 28.2 (28.0-33.3) pg MCHC 30.8 L (31.6-35.5) g/dL RDW 13.4 (11.5-14.5) % Plt Count 248 (140-400) K/mcL MPV 10.9 (9.4-12.4) fL Immature Gran % 0.2 (0-4) % Seg Neutrophils % 59.6 % Lymphocytes % 26.2 % Monocytes % 10.5 % Eosinophils % 3.0 % Basophils % 0.5 % Neutrophils # 4.8 (1.6-8.9) K/mcL Lymphocytes # 2.1 (0.6-4.6) K/mcL Monocytes # 0.9 (0.0-1.3) K/mcL Eosinophils # 0.2 (0.0-0.6) K/mcL Basophils # 0.0 (0.0-0.2) K/mcL PT 11.7 (9.4-12.1) Seconds INR 1.0 APTT 33.4 (26.0-36.0) Seconds Sodium 138 (136-145) mEq/L Potassium 4.8 (3.5-5.1) mEq/L Chloride 106 (98-107) mEq/L Carbon Dioxide 24 (23-29) mEq/L BUN 27 H (8-23) mg/dL Creatinine 1.50 H (0.60-1.20) mg/dL Est GFR ( Amer) 40 L (> 60) Est GFR (Non-Af Amer) 33 L (> 60) BUN/Creatinine Ratio 18 (6-26) Glucose 149 H (70-105) mg/dL Calculated Osmolality 294 (280-300) Calcium 8.6 (8.6-10.3) mg/dL Troponin I < 0.03 (< 0.04) ng/mL Heart Score - Score History: Moderately Suspicious EKG: Normal Age: Greater than 65 Risk Factors: Equal/Greater than 3 risk factor or history of atherosclerotic dis ease Troponin: Less than normal limit HEART Score Total: 5 Critical Care Time Critical Care Time: No
[2018-10-06 18:15] LABS: Basophils % 0.5 %; Eosinophils # 0.2 K/mcL (0.0-0.6); Hematocrit 32.5 % (35.3-44.9); Immature Granulocytes % 0.2 % (0-4); Lymphocytes # 2.1 K/mcL (0.6-4.6); Lymphocytes % 26.2 %; Mean Corpuscular HGB Conc 30.8 g/dL (31.6-35.5); Mean Corpuscular Hemoglobin 28.2 pg (28.0-33.3); Mean Corpuscular Volume 91.5 fL (83.0-100.0); Mean Platelet Volume 10.9 fL (9.4-12.4); Monocytes # 0.9 K/mcL (0.0-1.3); Monocytes % 10.5 %; Neutrophils # 4.8 K/mcL (1.6-8.9); Platelet Count 248 K/mcL (140-400); Red Blood Count 3.55 M/mcL (3.82-4.97); Red Cell Distribution Width 13.4 % (11.5-14.5); Segmented Neutrophils % 59.6 %; White Blood Count 8.1 K/mcL (4.3-11.1)
[2018-10-06 18:26] LABS: Prothrombin Time 11.7 Seconds (9.4-12.1)
[2018-10-06 18:29] LABS: Activated Partial Thrombo Time 33.4 Seconds (26.0-36.0)
[2018-10-06 19:08] LABS: BUN/Creatinine Ratio 18 (6-26); Blood Urea Nitrogen 27 mg/dL (8-23); Calcium 8.6 mg/dL (8.6-10.3); Carbon Dioxide 24 mEq/L (23-29); Chloride 106 mEq/L (98-107); Glucose 149 mg/dL (70-105); Osmolality,Calculated 294 (280-300); Potassium 4.8 mEq/L (3.5-5.1); Sodium 138 mEq/L (136-145); Troponin I < 0.03 ng/mL (< 0.04); eGFR For African Americans 40 (> 60); eGFR For Non-African Americans 33 (> 60)
[2018-10-06] MEDS ORDERED: 0.9 % Sodium Chloride 1,000 ML IVC ONE (20:34)
[2018-10-06] MEDS ORDERED: Nitroglycerin 0.4 MG TAB.SUBL SL PRN (22:34)
[2018-10-06] MEDS ORDERED: Dextrose Gel 15 GM/37.5 ML TUBE PO PRN ×2 (22:37)
[2018-10-06] MEDS ORDERED: *HR* Dextrose 50 % in Water (Syg) 50 ML SYRINGE IVP PRN (22:37)
[2018-10-06] MEDS ORDERED: D5% in Water 1,000 ML IVC PRN (22:37)
--- NOTE | 2018-10-06 22:46 | Internal Med History&Physical ---
Date of Encounter: 10/06/18 Time of Encounter: 22:38 Internal Medicine - H&P: HPI Chief complaint: Chest pain History of present illness: Ms. Romano is a 83 year old female with a past medical history of coronary artery disease status post PCI with 2 stents diabetes, hypertension, hypothyroidism and hyperlipidemia who presented to the ED with complaints of chest pain. Patient states that around 3:30 in the afternoon she began having substernal chest pain described as sharp/knifelike, 7 out of 10 in intensity radiating to her back. Patient at the time was watching TV. Symptoms persisted for approximately 5 hours and then resolved on its own. No aggravating or alleviating factors. Patient denies having eaten prior to onset. She does state that she woke up th morning and did not feel right, but could not describe exactly what was off. Patient denies nausea, vomiting, shortness of breath, diaphoresis or dizziness/lightheadedness. Patient subsequently took 4 baby aspirin with no resolution in symptoms. She subsequently took 3 sublingual nitroglycerin which did not provide relief. Patient states that this presentation was different from previous episodes of chest pain which were characterized more by dizziness and lightheadedness. Patient denies any fever, chills, cough, abdominal pain or diarrhea. Patient does endorse left lower extremity swelling of her left foot and ankle for the past several weeks. Patient denies any history of blood c lots. Patient had surgery the beginning of August for a rectal prolapse. Patient reports history of skin cancer on her ear and face approximately year ago. On initial evaluation, patient was afebrile, hypertensive with a blood pressure of 179/90 and heart rate of 97. Oxygen saturation on initial evaluation was 88- 92%. Patient is not on home oxygen. Initial laboratory workup was notable for anemia which appears to be chronic, elevated creatinine of 1.5 which appears to be chronic and negative troponin. EKG was performed which showed sinus tachycardia with a heart rate of 119 in the absence of any ST or T-wave change with occasional PVCs. Chest x-ray was unchanged from previous x-ray. Patient was given a liter of fluids in the ED. on my assessment patient was lying in bed in no acute distress. Currently not complaining of any chest pain. Past Med Surg Social Fam HX - Past Medical History Medical history: arthritis, cancer, coronary artery disease, diabetes, GERD, hyperlipidemia, hypertension, renal disease, thyroid disease, other Additional medical history: anemia/neuropathy Psychiatric history: no psych history - Past Surgical History Surgical History: angioplasty/stent, appendectomy, cancer surgery, cataract, cholecystectomy, hysterectomy, knee replacement, other Additional surgical history: heart cath//15/17. 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, right eye Retina surgery-2012 - Social History Smoking Status: Never smoker Smokeless Tobacco Status: No Alcohol use: none Drug use: none - Family History Brother Living Status: Still Living Hx Family Cardiac Disorders: Yes Mother Adopted: No Family Member Ethnicity: Non- Living Status: Hx Family Cardiac Disorders: No Hx Family Respiratory Disorders: No Hx Family Cancer: No Hx Family GI Disorders: No Hx Family Endocrine Disorder: No Hx Family Neuromuscular Disorders: No Hx Family Neurologic Disorders: No Hx Family HEENT Disorders: No Hx Family Autoimmune Disorders: No Father Hx Family Cardiac Disorders: Yes (OR) Hx Family Cancer: Yes (Prostate, Bone, Esosphageal) Internal Medicine - H&P: Meds Glimepiride [Amaryl] 4 mg PO BID 02/10/17 [History] Omeprazole [PriLOSEC] 20 mg PO DAILY 02/10/17 [History] Tramadol HCl [Ultram] 50 mg PO HS PRN 02/10/17 [History] Calcium Carbonate/Vitamin D3 [Calcium 500 + Vit D Caplet] 2 each PO QPM 02/16/17 [History] Multivit-Min/Iron Fum/Folic AC [Tefpu-Ayufddx-Nodeugmt Tablet] 1 each PO DAILY 02/16/17 [History] C,E,Zinc,Copper 11/Epgft0k/Lut [Ocuvite Adult 50 Plus Softgel] 1 cap PO DAILY 08/09/18 [History] Clopidogrel [Plavix] 75 mg PO DAILY 08/09/18 [History] Levothyroxine [Synthroid] 150 mcg PO QAM 08/09/18 [History] Lisinopril [Zestril] 20 mg PO BID 08/09/18 [History] Simvastatin [Zocor] 40 mg PO QPM 08/09/18 [History] Sitagliptin Phosphate [Januvia] 50 mg PO DAILY 08/09/18 [History] hydrALAZINE [HydrALAZINE] 25 mg PO QPM 08/09/18 [History] hydrALAZINE [HydrALAZINE] 50 mg PO QAM 08/09/18 [History] Nitroglycerin 0.4 mg SL Q5MIN PRN MDD X3 DOSES CALL 911 10/06/18 [History] Allergy/AdvReac Type Severity Reaction Status Date / Time hydrocodone [From Vicodin] Allergy Itching Verified 08/09/18 08:53 Penicillins Allergy Rash, Verified 08/09/18 08:53 swelling pioglitazone [From Actos] Allergy SOB Verified 08/09/18 08:53 diltiazem [From Cardizem] AdvReac Itching Verified 08/09/18 09:30 metformin AdvReac Dizziness Verified 08/09/18 08:53 All Systems PM: A 10-system review of systems was performed and is negative for pertinent findings except as documented above in the HPI. - Constitutional Constitutional: no chills, no fever(s), no night sweats - EENT Eyes: no change in vision, no discharge, no pain, no photophobia Ears: no ear discharge, no ear pain, no tinnitus Nose, mouth and throat: no dysphagia, no nasal discharge, no neck pain, no sore throat - Cardiovascular Cardiovascular ROS IM: no chest pain, no diaphoresis, no dyspnea, no lightheadedness, no palpitations, no syncope - Respiratory Respiratory: no cough, no dyspnea, no wheezing, no excessive phlegm production - Gastrointestinal Gastrointestinal: no abdominal pain, no diarrhea, no hematemesis, no hematochezia, no melena, no nausea, no vomiting - Genitourinary Genitourinary: no change in urinary stream, no dysuria, no flank pain, no hematuria - Musculoskeletal Musculoskeletal ROS IM: no numbness, no tingling - Integumentary Integumentary IM: no rash, no unusual bruising - Neurological Neurological ROS: no confusion, no convulsions, no focal weakness, no numbness, no tingling, no tremor(s) - Hematologic/Lymphatic Hematologic/Lymphatic: no easy bruising - Constitutional Vitals: Temp Pulse Resp BP Pulse Ox 97.8 F 90 16 189/93 90 10/06/18 22:15 10/06/18 22:15 10/06/18 22:15 10/06/18 22:15 10/06/18 22:15 Exam: General: Alert and oriented 3 lying in bed in no acute distress Skin:Normal color, no rash, no lesions. HEENT:EOM, pupils equal, round and reactive. Cardiovascular:Normal S1 & S2, no rubs, murmurs or gallops. No JVD. Pulse regular. Lungs:Normal breath sounds, no wheezes or crackles. Abdomen:Soft, non-tender, no rigidity. Extremities:No deformity, no edema or tenderness, no joint swelling or clubbing. Neurological:Normal cognition and motor skills. Pulses:Carotid and radial pulses normal +2. Rest of the physical exam is non contributory Internal Med - H&P Results - Labs CBC & Chem 7: 10/06/18 23:58 10/06/18 23:58 Labs: Short CBC 10/06/18 Range/Units 17:46 WBC 8.1 (4.3-11.1) K/mcL Hgb 10.0 L (11.5-15.4) g/dL Hct 32.5 L (35.3-44.9) % Plt Count 248 (140-400) K/mcL Neutrophils # 4.8 (1.6-8.9) K/mcL BMP 10/06/18 17:46 Sodium 138 Potassium 4.8 Chloride 106 Carbon Dioxide 24 BUN 27 H Creatinine 1.50 H Glucose 149 H Calcium 8.6 Cardiac Enzymes 10/06/18 Range/Units 17:46 Troponin I < 0.03 (< 0.04) ng/mL - Impressions ITS Impressions Chest X-Ray 10/06/18 17:26 IMPRESSION: The appearance of the chest is similar to prior. D/ / Edgar Bosch MD / Edgar Bosch MD Interpreting Provider: Edgar Bosch MD - Assessment and Plan (1) Chest pain Current Visit: Yes Status: Acute Assessment and plan: 83-year-old female with a past medical history of coronary artery disease status post PCI with 2 drug-eluting stents in 2017 presenting with atypical chest pain described as substernal knifelike radiating to her back. Pain appears to be not positional, nonreproducible and nonpleuritic. Did not improve after 3 sublingual nitroglycerin. Eventually subsided on its own. Initial troponin negative. EKG showed sinus tachycardia with a heart rate of 119 in the absence of any ST or T-wave changes with occasional PVCs. Patient was reportedly found to be hypoxic in the ED with a O2 saturation between 88 and 92% on room air which subsequently improved with 2 L nasal cannula. There was some notable left lower extremity edema involving the left foot and ankle with subtle asymmetry between the calves. Patient reportedly took 4 baby aspirin prior to arrival. -Telemetry -Trend troponin -Echocardiogram -We will evaluate for possible DVT/PE -Consider nuclear stress testing if troponin and PE study negative. Qualifiers: Chest pain type: unspecified Qualified Code(s): R07.9 - Chest pain, unspecified (2) Acute respiratory failure with hypoxia Current Visit: Yes Status: Acute Assessment and plan: Acute hypoxia with O2 saturation 88-92% on room air. Chest x-ray shows no acute focal process. Oxygen saturation's approval to mid 90s on 2 L. -Continue supportive care -Rule out PE (3) Edema of left lower extremity Current Visit: Yes Status: Acute Assessment and plan: Patient found to have left lower extremity swelling of the ankle and left foot with mild asymmetry between the 2 calves left greater than right. Patient reports swelling has been ongoing for the past week. She had surgery for rectal prolapse in early August. Given patient's hypoxia on arrival and chest pain, concern for possible DVT/PE. D-dimer was obtained which was found to be 801. Given patient's baseline kidney function CTA of the chest relatively contraindicated. -We will start patient on therapeutic dose of Lovenox BID -We will obtain venous Doppler of the left lower extremity -We will obtain VQ scan in the morning (4) CAD (coronary artery disease) of artery bypass graft Current Visit: No Status: Acute Assessment and plan: Past medical history of coronary artery disease with severe 2 vessel disease status post left heart catheter in February of 2017 with 2 DEBORAH placed to mid LAD and diagonal artery. Echo around the same time showing a EF of 55% with normal LV chamber size and function, mild concentric left ventricular hypertrophy and mild diastolic dysfunction. No valvular dysfunction -Continue aspirin, Plavix, simvastatin Qualifiers: [place] vs. transplanted heart: [place] heart Associated angina: without angina Qualified Code(s): I25.810 - Atherosclerosis of coronary artery bypass graft(s) without angina pectoris (5) Chronic kidney disease, stage 3 Current Visit: No Status: Acute Assessment and plan: History of stage III chronic kidney disease. Creatinine 1.50 which appears at baseline. -We will continue to monitor. (6) DVT prophylaxis Current Visit: No Status: Acute Assessment and plan: We will give one-time therapeutic dose of Lovenox due to concern for DVT/PE. - Time Spent With Patient Total time spent is greater than 50% in coordination of care (as documented) at patient's floor/unit and/or counseling patient:
[2018-10-07] MEDS ORDERED: traMADol 50 MG TABLET PO PRN (00:54)
[2018-10-07] MEDS: *HR* Enoxaparin 100 MG/ML SYRINGE SQ SCH ×2 (01:22→05:03)
[2018-10-07] MEDS: Lisinopril 20 MG TABLET PO SCH ×3 (01:23→21:59)
[2018-10-07] MEDS: hydrALAZINE 25 MG TABLET PO SCH ×3 (01:23→16:12)
[2018-10-07 01:52] LABS: Basophils # 0.1 K/mcL (0.0-0.2); Basophils % 0.8 %; Eosinophils # 0.3 K/mcL (0.0-0.6); Eosinophils % 4.8 %; Hematocrit 31.7 % (35.3-44.9); Hemoglobin 9.7 g/dL (11.5-15.4); Immature Granulocytes % 0.2 % (0-4); Lymphocytes # 1.7 K/mcL (0.6-4.6); Lymphocytes % 26.7 %; Mean Corpuscular HGB Conc 30.6 g/dL (31.6-35.5); Mean Corpuscular Volume 91.4 fL (83.0-100.0); Mean Platelet Volume 11.1 fL (9.4-12.4); Monocytes # 0.7 K/mcL (0.0-1.3); Monocytes % 10.2 %; Neutrophils # 3.7 K/mcL (1.6-8.9); Platelet Count 209 K/mcL (140-400); Red Blood Count 3.47 M/mcL (3.82-4.97); Red Cell Distribution Width 13.5 % (11.5-14.5); Segmented Neutrophils % 57.3 %; White Blood Count 6.4 K/mcL (4.3-11.1)
[2018-10-07 02:36] LABS: Albumin 3.1 g/dL (3.5-5.7); Albumin/Globulin Ratio 1.3 (1.1-2.2); Bilirubin,Total 0.3 mg/dL (0.3-1.0); Calcium 8.6 mg/dL (8.6-10.3); Globulin 2.4 g/dL (2.4-3.5); Potassium 4.3 mEq/L (3.5-5.1); Total Protein 5.5 g/dL (6.4-8.9)
[2018-10-07] MEDS: Cholecalciferol (D-3) 1,000 UNIT TABLET PO SCH (07:21)
[2018-10-07] MEDS: Multivit/Ca/Min/Fe/FA 1 TAB TABLET PO SCH (07:22)
--- NOTE | 2018-10-07 13:53 | Internal Med Progress Note ---
Hospitalist Progress Note - Encounter Date of Encounter: 10/07/18 Time of Encounter: 10:45 - Subjective Interval History: Patient seen at bedside. Patient was found to have left posterior tibial vein deep vein thrombosis in the morning. Patient denies any chest pain at this point. Mentions that she had this swelling of the left leg for the past few da ys. Denies any provoking factors including the recent travel, any active cancer, inability to ambulate, and either, the disease predisposing her to clotting. No acute overnight events. - Exam Vitals: Temp Pulse Resp BP Pulse Ox 98.0 F 77 16 154/78 98 10/07/18 11:09 10/07/18 11:10/07/18 11:09 10/07/18 11:10/07/18 11:09 Exam: General: Alert and oriented, no physical distress, able to follow commands. HEENT: No thyromegaly, no lymphadenopathy, no discharge. Eyes: No discharge. Respiratory: Normal vesicular breathing, no added sounds, breathing equal in both sides. CVS: Normal heart sounds, no murmurs, no edema. Extremities: No peripheral edema, peripheral pulses intact. Lymph nodes: No lymphadenopathy Gastrointestinal: Soft, nontender abdomen, normal abdominal sounds. No distention noted. Genitourinary: No paravertebral tenderness. Neurological: Alert and oriented. No focal deficits. Cranial nerves II-XII intact. - Assessment and Plan (1) Acute DVT of left tibial vein Current Visit: Yes Status: Acute Assessment and Plan: Ultrasonography showed acute deep vein thrombosis in the left posterior tibial vein. Patient is hemodynamically stable at this point. Patient is currently on Lovenox. Discussed with the patient and her regarding the future need of anticoagulation. Discussed in detail with them regarding different medications which can serve the purpose of anticoagulation. Pt will be discharged on either eliquis or xarelto. We will wait until tomorrow for further workup to be completed. (2) Chest pain Current Visit: Yes Status: Acute Assessment and Plan: Etiology is unclear. Less likely to be cardiac in nature. Could be related to acute pulmonary embolism considering the patient was hypoxic and also had sharp chest pain. As mentioned and above, patient has DVT. Continue the patient on anti-coagulation. Await on the results of perfusion scan. Patient is not showing any signs of decompensation. (3) DVT prophylaxis Current Visit: No Status: Acute Assessment and Plan: Patient is currently on Lovenox. (4) Chronic kidney disease, stage 3 Current Visit: No Status: Acute Assessment and Plan: Patient has a history of stage III C kidney. Creatinine 1.50 which appears at baseline. -We will continue to monitor. (5) CAD (coronary artery disease) of artery bypass graft Current Visit: No Status: Acute Assessment and Plan: Patient has past medical history of CAD, status post left heart catheter in 017 with placement of DEBORAH in mid LAD and diagonal artery. Echo around the same time showing a EF of 55% with normal LV chamber size and function, mild concentric left ventricular hypertrophy and mild diastolic dysfunction. No valvular dysfunction -Continue Plavix, simvastatin. HOld aspirin as the pt is on lovenox. (6) Edema of left lower extremity Current Visit: Yes Status: Acute Assessment and Plan: [place] has DVT. -Mangement plan outlined above (7) Acute respiratory failure with hypoxia Current Visit: Yes Status: Acute Assessment and Plan: -Currently patient is doing better oxygen saturation in high 90s on room air. -Continue supportive care -Rule out PE - Time Spent with Patient Total time spent is greater than 50% in coordination of care (as documented) at patient's floor/unit and/or counseling patient: Internal Medicine: Result - Labs CBC & Chem 7: 10/06/18 23:58 10/06/18 23:58 Labs: Short CBC 10/06/18 10/06/18 Range/Units 17:46 23:58 WBC 8.1 6.4 (4.3-11.1) K/mcL Hgb 10.0 L 9.7 L (11.5-15.4) g/dL Hct 32.5 L 31.7 L (35.3-44.9) % Plt Count 248 209 (140-400) K/mcL Neutrophils # 4.8 3.7 (1.6-8.9) K/mcL BMP 10/06/18 10/06/18 17:46 23:58 Sodium 138 139 Potassium 4.8 4.3 Chloride 106 107 Carbon Dioxide 24 23 BUN 27 H 26 H Creatinine 1.50 H 1.42 H Glucose 149 H 186 H Calcium 8.6 8.6 Cardiac Enzymes 10/06/18 10/06/18 Range/Units 17:46 23:58 Troponin I < 0.03 < 0.03 (< 0.04) ng/mL Liver Function 10/06/18 Range/Units 23:58 Total Bilirubin 0.3 (0.3-1.0) mg/dL AST 13 (13-39) Units/L ALT 8 (7-52) Units/L Alkaline Phosphatase 59 (34-104) Units/L Albumin 3.1 L (3.5-5.7) g/dL - ABG Interpretation ABG results: PT/INR, D-dimer PT 11.7 Seconds (9.4-12.1) 10/06/18 17:46 801 ng/mLFEU (0-500) H 10/06/18 23:58 - Impressions Impressions Chest X-Ray 10/06/18 17:26 IMPRESSION: The appearance of the chest is similar to prior. D/ / Edgar Bosch MD / Edgar Bosch MD Interpreting Provider: Edgar Bosch MD Consult Discharge Plan - Plan Referrals: Peterson Tsang DO [Primary Care Provider] - (2) Chest pain Qualifiers: Chest pain type: unspecified Qualified Code(s): R07.9 - Chest pain, unspecified (5) CAD (coronary artery disease) of artery bypass graft Qualifiers: [place] vs. transplanted heart: [place] heart Associated angina: without angina Qualified Code(s): I25.810 - Atherosclerosis of coronary artery bypass graft(s) without angina pectoris
[2018-10-07] MEDS ORDERED: *HR* Enoxaparin 100 MG/ML SYRINGE SQ SCH (16:00)
[2018-10-07] MEDS ORDERED: *HR* Enoxaparin 40 MG/0.4 ML SYRINGE SQ SCH (16:00)
[2018-10-08 04:01] LABS: Basophils # 0.1 K/mcL (0.0-0.2); Basophils % 0.7 %; Eosinophils # 0.3 K/mcL (0.0-0.6); Eosinophils % 3.8 %; Hematocrit 30.1 % (35.3-44.9); Hemoglobin 9.1 g/dL (11.5-15.4); Immature Granulocytes % 0.3 % (0-4); Lymphocytes # 2.3 K/mcL (0.6-4.6); Lymphocytes % 33.4 %; Mean Corpuscular HGB Conc 30.2 g/dL (31.6-35.5); Mean Corpuscular Hemoglobin 27.1 pg (28.0-33.3); Mean Corpuscular Volume 89.6 fL (83.0-100.0); Mean Platelet Volume 10.6 fL (9.4-12.4); Monocytes # 0.8 K/mcL (0.0-1.3); Monocytes % 12.2 %; Neutrophils # 3.4 K/mcL (1.6-8.9); Platelet Count 223 K/mcL (140-400); Red Blood Count 3.36 M/mcL (3.82-4.97); Red Cell Distribution Width 13.6 % (11.5-14.5); Segmented Neutrophils % 49.6 %; White Blood Count 6.9 K/mcL (4.3-11.1)
[2018-10-08 04:14] LABS: Calcium 8.5 mg/dL (8.6-10.3); Potassium 4.1 mEq/L (3.5-5.1)
[2018-10-08] MEDS ORDERED: 0.9 % Sodium Chloride 1,000 ML IVC SCH (08:00)
[2018-10-08] MEDS: Multivit/Ca/Min/Fe/FA 1 TAB TABLET PO SCH (09:19)
[2018-10-08] MEDS: Cholecalciferol (D-3) 1,000 UNIT TABLET PO SCH (09:19)
[2018-10-08] MEDS: hydrALAZINE 25 MG TABLET PO SCH (09:19)
[2018-10-08] MEDS: Lisinopril 20 MG TABLET PO SCH (09:19)
--- NOTE | 2018-10-08 09:29 | Electrocardiograph Report ---
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
--- NOTE | 2018-10-08 11:39 | Discharge Summary ---
- NOTES TO OUTPATIENT PROVIDER Notes to Outpatient Provider: Pt is diagnosed with new onset DVT. V/Q scan for the PE was negative even though patient came with chest pain and she was also hypoxic. She has been started on Eliquis. seems to be unprovoked DVT. Need to discuss the duration, Orders not resulted at time of discharge: Pending orders 10/07/18 04:00 Hgb A1C AM 0400 Date of Encounter: 10/08/18 Time of Encounter: 08:30 - Discharge Diagnosis (1) Acute DVT (deep venous thrombosis) Priority: Primary Status: Acute Qualifiers: DVT location: lower extremity Affected thrombotic vein of extremity: tibial Laterality: left Qualified Code(s): I82.442 - Acute embolism and thrombosis of left tibial vein (2) DVT prophylaxis Priority: Secondary Status: Acute (3) Chronic kidney disease, stage 3 Priority: Secondary Status: Acute (4) CAD (coronary artery disease) of artery bypass graft Priority: Secondary Status: Acute Qualifiers: [place] vs. transplanted heart: [place] heart Associated angina: without angina Qualified Code(s): I25.810 - Atherosclerosis of coronary artery bypass graft(s) without angina pectoris (5) Chest pain Priority: Secondary Status: Acute Qualifiers: Chest pain type: unspecified Qualified Code(s): R07.9 - Chest pain, unspecified (6) Edema of left lower extremity Priority: Secondary Status: Acute (7) Acute respiratory failure with hypoxia Priority: Secondary Status: Acute Hospital course: Ms. Romano is a 83 year old female with a past medical history significant for coronary artery disease status post PCI with 2 stents, hypertension, hypothyroidism, hyperlipidemia presented to the ED because of the breast pain. Patient described the chest pain as sharp. Patient was also hypoxic at the time of the presentation with oxygen saturation around 88-92%. The patient also noticed her left neck swelling. Doppler scans were done for the left leg swelling and patient was found to have DVT. Echocardiogram was done which did not show any right ventricular strain. V/Q scan was done which also did not show any evidence of pulmonary embolism. Patient was on aspirin and Plavix for her ACS. Discussed with the patient that she needs to be only on one antiplatelet. Patient preference Plavix. Patient is being discharged on Elqiuis and Plavix. The dose for the Eliquis was discussed with the pharmacist. Patient will be given 10 mg by mouth twice a day for 7 days and then 5 mg by mouth. Duration of the and accommodation to be determined by the PCP, seems to be unprovoked DVT. Patient to be given AC for at least 3-6 months. Call the patient preference pharmacy and recheck with them regarding the availability for the Eliquis. Patient's creatinine is 1.54 but it is close to her baseline. Patient is being discharged in stable condition. - Time Spent with Patient Total time spent providing and/or coordinating discharge services: 50 minutes - Discharge Medications Prescriptions: New Apixaban [Eliquis] 10 mg PO BID 7 Days #28 tablet Apixaban [Eliquis] 5 mg PO BID 23 Days #46 tab.ds.pk Continued Tramadol HCl [Ultram] 50 mg PO HS PRN PRN Reason: Pain Omeprazole [PriLOSEC] 20 mg PO DAILY Glimepiride [Amaryl] 4 mg PO BID Multivit-Min/Iron Fum/Folic AC [Gwgfw-Wvjuvnn-Xdfwieac Tablet] 1 each PO DAILY Calcium Carbonate/Vitamin D3 [Calcium 500 + Vit D Caplet] 2 each PO QPM C,E,Zinc,Copper 11/Cieum3z/Lut [Ocuvite Adult 50 Plus Softgel] 1 cap PO DAILY Clopidogrel [Plavix] 75 mg PO DAILY hydrALAZINE [HydrALAZINE] 50 mg PO QAM hydrALAZINE [HydrALAZINE] 25 mg PO QPM Levothyroxine [Synthroid] 150 mcg PO QAM Lisinopril [Zestril] 20 mg PO BID Simvastatin [Zocor] 40 mg PO QPM Sitagliptin Phosphate [Januvia] 50 mg PO DAILY Nitroglycerin 0.4 mg SL Q5MIN PRN MDD X3 DOSES CALL 911 PRN Reason: Chest Pain Home Medications: Glimepiride [Amaryl] 4 mg PO BID 02/10/17 [History] Omeprazole [PriLOSEC] 20 mg PO DAILY 02/10/17 [History] Tramadol HCl [Ultram] 50 mg PO HS PRN 02/10/17 [History] Calcium Carbonate/Vitamin D3 [Calcium 500 + Vit D Caplet] 2 each PO QPM 02/16/17 [History] Multivit-Min/Iron Fum/Folic AC [Ijpfp-Uyaicyu-Brbsmvee Tablet] 1 each PO DAILY 02/16/17 [History] C,E,Zinc,Copper 11/Aking3r/Lut [Ocuvite Adult 50 Plus Softgel] 1 cap PO DAILY 08/09/18 [History] Clopidogrel [Plavix] 75 mg PO DAILY 08/09/18 [History] Levothyroxine [Synthroid] 150 mcg PO QAM 08/09/18 [History] Lisinopril [Zestril] 20 mg PO BID 08/09/18 [History] Simvastatin [Zocor] 40 mg PO QPM 08/09/18 [History] Sitagliptin Phosphate [Januvia] 50 mg PO DAILY 08/09/18 [History] hydrALAZINE [HydrALAZINE] 25 mg PO QPM 08/09/18 [History] hydrALAZINE [HydrALAZINE] 50 mg PO QAM 08/09/18 [History] Nitroglycerin 0.4 mg SL Q5MIN PRN MDD X3 DOSES CALL 911 10/06/18 [History] Apixaban [Eliquis] 5 mg PO BID 23 Days #46 tab.ds.pk 10/08/18 [Rx] Apixaban [Eliquis] 10 mg PO BID 7 Days #28 tablet 10/08/18 [Rx] Allergies/Adverse Reactions: Allergy/AdvReac Type Severity Reaction Status Date / Time hydrocodone [From Vicodin] Allergy Itching Verified 10/08/18 11:52 Penicillins Allergy Rash, Verified 10/08/18 11:52 swelling pioglitazone [From Actos] Allergy SOB Verified 10/08/18 11:52 diltiazem [From Cardizem] AdvReac Itching Verified 10/08/18 11:52 metformin AdvReac Dizziness Verified 10/08/18 11:52 Date of admission: 10/06/18 20:54 Primary care physician: Peterson Tsang, DO - Constitutional Vitals: Temp Pulse Resp BP Pulse Ox 97.6 F 78 16 169/72 93 10/08/18 07:12 10/08/18 07:12 10/08/18 07:12 10/08/18 07:12 10/08/18 07:12 Exam: General: Alert and oriented, no physical distress, able to follow commands. HEENT: No thyromegaly, no lymphadenopathy, no discharge. Eyes: No discharge. Respiratory: Normal vesicular breathing, no added sounds, breathing equal in both sides. CVS: Normal heart sounds, no murmurs, no edema. Extremities: No peripheral edema, peripheral pulses intact. Lymph nodes: No lymphadenopathy Gastrointestinal: Soft, nontender abdomen, normal abdominal sounds. No distention noted. Genitourinary: No paravertebral tenderness. Neurological: Alert and oriented. No focal deficits. Cranial nerves II-XII intact. - Patient Status Disposition: Home, Self-Care Condition: Fair Functional capacity at discharge: independent ambulation Overall status at discharge: patient is back to baseline - Discharge Instructions Follow Up With: Peterson Tsang DO [Primary Care Provider] - (Follow up has been requested) Forms: ED Satisfaction Letter - Diet and Activity Activity: increase activity as tolerated Diet: advance to your usual diet
[2018-10-08 11:45] VITALS: BP 156/83
[2018-10-09 11:23] LABS: Estimated Average Glucose 143 mg/dl
--- NOTE | 2018-10-10 06:28 | Electrocardiograph Report ---
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
== END 2018-10-08 13:18 | disposition home or self-care (01) ==
LOC: EMEROOARM 17:19 → 3BNU 17:19 → SUATTDRO 20:54 → 3BNU 21:46
PROVIDERS: ADMIT Internal Medicine Nephrology; ATTEND Internal Medicine

== ENCOUNTER 2020-03-13 18:48 | Observation (INO) ==
[2020-03-13 19:19] LABS: Basophils % 0.2 %; Eosinophils # 0.1 K/mcL (0.0-0.6); Eosinophils % 2.4 %; Hematocrit 34.9 % (35.3-44.9); Hemoglobin 10.6 g/dL (11.5-15.4); Immature Granulocytes % 0.2 % (0-4); Lymphocytes # 1.5 K/mcL (0.6-4.6); Lymphocytes % 32.7 %; Mean Corpuscular HGB Conc 30.4 g/dL (31.6-35.5); Mean Corpuscular Volume 92.1 fL (83.0-100.0); Mean Platelet Volume 10.4 fL (9.4-12.4); Monocytes # 0.4 K/mcL (0.0-1.3); Monocytes % 8.5 %; Neutrophils # 2.5 K/mcL (1.6-8.9); Platelet Count 167 K/mcL (140-400); Red Blood Count 3.79 M/mcL (3.82-4.97); Red Cell Distribution Width 13.3 % (11.5-14.5); White Blood Count 4.5 K/mcL (4.3-11.1)
[2020-03-13 19:41] LABS: Albumin 3.2 g/dL (3.5-5.7); Bilirubin,Total 0.3 mg/dL (0.3-1.0); Calcium 8.3 mg/dL (8.6-10.3); Globulin 3.1 g/dL (2.4-3.5); Potassium 3.7 mEq/L (3.5-5.1); Total Protein 6.3 g/dL (6.4-8.9); Troponin I 0.05 ng/mL (< 0.04)
[2020-03-13 20:03] LABS: INR 1.3; Prothrombin Time 14.5 Seconds (9.4-12.1)
[2020-03-13 20:05] LABS: Activated Partial Thrombo Time 32.6 Seconds (26.0-36.0)
[2020-03-13 20:40] LABS: Adenovirus Not Detected (Not Detect); Coronavirus 229E Not Detected (Not Detect); Coronavirus HKU1 Not Detected (Not Detect); Coronavirus NL63 Not Detected (Not Detect); Coronavirus OC43 Not Detected (Not Detect); Human Metapneumovirus Not Detected (Not Detect); Human Rhinovirus/Enterovirus Not Detected (Not Detect)
[2020-03-13 20:41] LABS: Bordetella Pertussis Not Detected (Not Detect); Chlamydophila pneumoniae Not Detected (Not Detect); Influenza A Subtype 2009 H1 Not Detected (Not Detect); Influenza B Not Detected (Not Detect); Mycoplasma pneumoniae Not Detected (Not Detect); Parainfluenza Virus 1 Not Detected (Not Detect); Parainfluenza Virus 2 Not Detected (Not Detect); Parainfluenza Virus 3 Not Detected (Not Detect); Parainfluenza Virus 4 Not Detected (Not Detect); Respiratory Syncytial Virus Not Detected (Not Detect)
[2020-03-13 20:45] LABS: SARS-CoV-2 DETECTED (Not Detect)
[2020-03-13] MEDS ORDERED: Furosemide 20 MG/2 ML VIAL IVP ONE (21:20)
[2020-03-13] MEDS ORDERED: Aspirin 81 MG TAB.CHEW PO ONE (21:30)
[2020-03-13] MEDS ORDERED: Naloxone 0.4 MG/ML INJ IVP PRN (21:34)
[2020-03-13] MEDS ORDERED: Ondansetron 4 MG/2 ML VIAL IVP PRN (21:34)
[2020-03-13] MEDS ORDERED: Acetaminophen 325 MG TABLET PO PRN ×2 (21:34)
[2020-03-13] MEDS ORDERED: *HR* Dextrose 50 % in Water (Vial) 50 ML VIAL IVP PRN (22:14)
[2020-03-13] MEDS ORDERED: Dextrose Gel 15 GM/37.5 ML TUBE PO PRN ×2 (22:14)
[2020-03-13] MEDS ORDERED: D5% in Water 1,000 ML IVC PRN (22:14)
[2020-03-13 22:52] LABS: INR 1.3; Prothrombin Time 14.4 Seconds (9.4-12.1)
[2020-03-14] MEDS: Insulin LISPRO 300 UNITS/3 ML VIAL SQ SCH ×5 (00:06→19:51)
[2020-03-14] MEDS: carvediloL 25 MG TABLET PO SCH ×3 (00:06→17:53)
[2020-03-14] MEDS ORDERED: Ipratropium 1 PUFF INHALER IH PRN (00:23)
[2020-03-14] MEDS ORDERED: *HR* Enoxaparin 40 MG/0.4 ML SYRINGE SQ SCH (06:00)
[2020-03-14 06:46] LABS: Basophils % 0.5 %; Eosinophils # 0.1 K/mcL (0.0-0.6); Eosinophils % 1.9 %; Hematocrit 32.5 % (35.3-44.9); Hemoglobin 9.8 g/dL (11.5-15.4); Immature Granulocytes % 0.2 % (0-4); Lymphocytes # 1.3 K/mcL (0.6-4.6); Lymphocytes % 29.8 %; Mean Corpuscular HGB Conc 30.2 g/dL (31.6-35.5); Mean Corpuscular Hemoglobin 28.2 pg (28.0-33.3); Mean Corpuscular Volume 93.7 fL (83.0-100.0); Mean Platelet Volume 10.6 fL (9.4-12.4); Monocytes # 0.3 K/mcL (0.0-1.3); Monocytes % 6.6 %; Neutrophils # 2.6 K/mcL (1.6-8.9); Platelet Count 169 K/mcL (140-400); Red Blood Count 3.47 M/mcL (3.82-4.97); Red Cell Distribution Width 13.4 % (11.5-14.5); White Blood Count 4.3 K/mcL (4.3-11.1)
[2020-03-14 06:50] LABS: Fibrinogen 398 mg/dL (169-393)
[2020-03-14 06:57] LABS: D-Dimer 904 ng/mLFEU (0-500)
[2020-03-14 07:09] LABS: Albumin/Globulin Ratio 1.1 (1.1-2.2); Bilirubin,Total 0.4 mg/dL (0.3-1.0); Calcium 7.9 mg/dL (8.6-10.3); Chol/HDL Ratio 4.3 (0-4.9); Globulin 2.8 g/dL (2.4-3.5); Magnesium 1.1 mg/dL (1.6-2.6); Phosphorous 4.2 mg/dL (2.7-4.5); Potassium 3.8 mEq/L (3.5-5.1); Total Protein 5.8 g/dL (6.4-8.9)
[2020-03-14] MEDS ORDERED: Furosemide 40 MG/4 ML VIAL IVP SCH (08:00)
[2020-03-14] MEDS ORDERED: Azithromycin 500 MG in 0.9 % Sodium Chloride 250 ML IVPB SCH (10:00)
[2020-03-14] MEDS ORDERED: cefTRIAXone 2,000 MG in Water for inj. (sterile) 20 ML IVP SCH (10:00)
[2020-03-14] MEDS: Dexamethasone Sodium Phos/PF 10 MG/ML VIAL IVP SCH (10:34)
[2020-03-14] MEDS: Furosemide 40 MG/4 ML VIAL IVP SCH (10:34)
[2020-03-14] MEDS ORDERED: Apixaban 5 MG TABLET PO SCH (21:00)
[2020-03-15] MEDS ORDERED: *HR* Enoxaparin 40 MG/0.4 ML SYRINGE SQ SCH (06:00)
[2020-03-15] MEDS ORDERED: *HR* Enoxaparin 30 MG/0.3 ML SYRINGE SQ SCH (06:00)
[2020-03-15] MEDS: Insulin LISPRO 300 UNITS/3 ML VIAL SQ SCH ×4 (08:20→21:18)
[2020-03-15] MEDS: carvediloL 25 MG TABLET PO SCH ×2 (11:06→18:04)
[2020-03-15] MEDS: Dexamethasone Sodium Phos/PF 10 MG/ML VIAL IVP SCH (11:07)
[2020-03-15] MEDS: Furosemide 40 MG/4 ML VIAL IVP SCH (11:08)
[2020-03-15 11:29] LABS: Mean Corpuscular Hemoglobin 27.6 pg (28.0-33.3); Mean Platelet Volume 10.5 fL (9.4-12.4); Platelet Count 168 K/mcL (140-400); Red Blood Count 3.26 M/mcL (3.82-4.97); Red Cell Distribution Width 13.2 % (11.5-14.5); White Blood Count 2.6 K/mcL (4.3-11.1)
[2020-03-15] MEDS ORDERED: Nitroglycerin 0.4 MG TAB.SUBL SL PRN (18:28)
[2020-03-15] MEDS: *HR* Labetalol 20 MG/4 ML SYRINGE IVP PRN (19:51)
[2020-03-16] MEDS: *HR* Labetalol 20 MG/4 ML SYRINGE IVP PRN (00:22)
[2020-03-16] MEDS ORDERED: Haloperidol Lactate 5 MG/ML VIAL IVP PRN (00:24)
[2020-03-16] MEDS ORDERED: *HR* Enoxaparin 30 MG/0.3 ML SYRINGE SQ SCH (06:00)
[2020-03-16 08:10] VITALS: BP 198/81
[2020-03-16] MEDS ORDERED: lisinopriL 20 MG TABLET PO SCH (09:00)
[2020-03-16] MEDS ORDERED: amLODIPine 5 MG TABLET PO SCH (09:00)
[2020-03-16] MEDS ORDERED: Azithromycin 250 MG TABLET PO SCH (09:00)
[2020-03-16] MEDS ORDERED: cefTRIAXone 1,000 MG in Water for inj. (sterile) 10 ML IVP SCH (09:00)
[2020-03-16] MEDS: carvediloL 25 MG TABLET PO SCH (09:27)
[2020-03-16] MEDS: Furosemide 40 MG/4 ML VIAL IVP SCH (09:28)
[2020-03-16] MEDS: Dexamethasone Sodium Phos/PF 10 MG/ML VIAL IVP SCH (09:28)
[2020-03-16] MEDS: Insulin LISPRO 300 UNITS/3 ML VIAL SQ SCH ×2 (09:29→12:48)
[2020-03-16 13:36] LABS: Calcium 8.6 mg/dL (8.6-10.3); Magnesium 2.3 mg/dL (1.6-2.6)
[2020-03-16 13:51] LABS: Hematocrit 35.4 % (35.3-44.9); Mean Corpuscular HGB Conc 31.1 g/dL (31.6-35.5); Mean Corpuscular Hemoglobin 27.6 pg (28.0-33.3); Mean Corpuscular Volume 88.7 fL (83.0-100.0); Mean Platelet Volume 10.5 fL (9.4-12.4); Platelet Count 260 K/mcL (140-400); Red Blood Count 3.99 M/mcL (3.82-4.97); Red Cell Distribution Width 13.2 % (11.5-14.5)
[2020-03-16 13:52] LABS: White Blood Count 12.5 K/mcL (4.3-11.1)
[2020-03-16] MEDS ORDERED: Cholecalciferol (D-3) 1,000 UNIT (25MCG) TABLET PO SCH (18:00)
[2020-03-16] MEDS ORDERED: hydrALAZINE 25 MG TABLET PO SCH (18:00)
== END 2020-03-16 16:10 | disposition home or self-care (01) ==
LOC: CDU 18:48 → EMEROOARM 18:48 → SUATTDRO 21:27 → CDU 21:44 → 2NENU 03-14 23:19
PROVIDERS: ADMIT Family Medicine; ATTEND Internal Medicine

== ENCOUNTER 2020-09-30 14:31 | Observation (INO) ==
[2020-09-30 15:45] LABS: Basophils % 0.5 %; Eosinophils # 0.2 K/mcL (0.0-0.6); Eosinophils % 2.5 %; Hemoglobin 9.3 g/dL (11.5-15.4); Immature Granulocytes % 0.3 % (0-4); Lymphocytes # 2.3 K/mcL (0.6-4.6); Lymphocytes % 30.5 %; Mean Corpuscular Hemoglobin 29.1 pg (28.0-33.3); Mean Corpuscular Volume 96.9 fL (83.0-100.0); Mean Platelet Volume 11.6 fL (9.4-12.4); Monocytes # 0.7 K/mcL (0.0-1.3); Monocytes % 8.9 %; Neutrophils # 4.3 K/mcL (1.6-8.9); Platelet Count 127 K/mcL (140-400); Red Cell Distribution Width 13.8 % (11.5-14.5); Segmented Neutrophils % 57.3 %; White Blood Count 7.6 K/mcL (4.3-11.1)
[2020-09-30 15:48] LABS: INR 1.1; Prothrombin Time 12.7 Seconds (9.4-12.1)
[2020-09-30 15:51] LABS: Activated Partial Thrombo Time 29.4 Seconds (26.0-36.0)
[2020-09-30 16:00] LABS: Albumin 3.2 g/dL (3.5-5.7); Albumin/Globulin Ratio 1.3 (1.1-2.2); Bilirubin,Direct 0.1 mg/dL (0.0-0.2); Bilirubin,Indirect 0.3 mg/dL (0.0-1.0); Bilirubin,Total 0.4 mg/dL (0.3-1.0); Globulin 2.5 g/dL (2.4-3.5); Total Protein 5.7 g/dL (6.4-8.9)
[2020-09-30 16:01] LABS: BUN/Creatinine Ratio 22 (6-26); Blood Urea Nitrogen 56 mg/dL (8-23); Calcium 8.6 mg/dL (8.6-10.3); Carbon Dioxide 30 mEq/L (23-29); Chloride 103 mEq/L (98-107); Glucose 197 mg/dL (70-105); Magnesium 1.9 mg/dL (1.6-2.6); Osmolality,Calculated 309 (280-300); Potassium 4.4 mEq/L (3.5-5.1); Sodium 139 mEq/L (136-145); Troponin I < 0.03 ng/mL (< 0.04); eGFR For African Americans 22 (> 60); eGFR For Non-African Americans 18 (> 60)
[2020-09-30 16:15] LABS: Thyroid Stimulating Hormone 29.298 mcIU/mL (0.340-5.600)
[2020-09-30 16:52] LABS: Bacteria,Urine Moderate per hpf (None-Few); Bilirubin,Urine Negative (Negative); Blood,Urine Negative (Negative); Clarity,Urine Clear (Clear); Color,Urine Light-Yellow (Yellow); Glucose,Urine (UA) 70 mg/dL (Normal); Hyaline Casts,Urine Few per lpf (None Seen); Ketones,Urine Negative (Negative); Leukocyte Esterase,Urine Moderate (Negative); Mucus,Urine Few per lpf (None-Few); Nitrite,Urine Negative (Negative); Protein,Urine 200 mg/dL (Neg-Trace); RBC,Urine 0-3 per hpf (0-3); Specific Gravity,Urine 1.014 (1.010-1.025); Squamous Epithelial Cell,Urine Few per hpf (None-Few); Urobilinogen,Urine Normal (Normal); WBC,Urine 50-100 per hpf (0-3)
[2020-09-30] MEDS ORDERED: cefTRIAXone 1,000 MG in Water for inj. (sterile) 10 ML IVP ONE (16:57)
[2020-09-30] MEDS ORDERED: 0.9 % Sodium Chloride 1,000 ML IVC ONE (16:57)
[2020-09-30] MEDS ORDERED: Levothyroxine Sodium 100 MCG VIAL IVP SCH (17:00)
[2020-09-30] MEDS ORDERED: Dextrose Gel 15 GM/37.5 ML TUBE PO PRN ×2 (17:05)
[2020-09-30] MEDS ORDERED: Naloxone 0.4 MG/ML INJ IVP PRN (17:05)
[2020-09-30] MEDS ORDERED: Ondansetron 4 MG/2 ML VIAL IVP PRN (17:05)
[2020-09-30] MEDS ORDERED: *HR* Dextrose 50 % in Water (Vial) 50 ML VIAL IVP PRN (17:05)
[2020-09-30] MEDS ORDERED: Acetaminophen 325 MG TABLET PO PRN (17:05)
[2020-09-30] MEDS ORDERED: D5% in Water 1,000 ML IVC PRN (17:05)
[2020-09-30] MEDS ORDERED: Ringers Solution, Lactated 1,000 ML IVC SCH (17:45)
[2020-09-30] MEDS ORDERED: hydrALAZINE 25 MG TABLET PO SCH (18:00)
[2020-09-30] MEDS: carvediloL 25 MG TABLET PO SCH (21:18)
[2020-10-01 02:59] LABS: Basophils % 0.6 %; Eosinophils # 0.2 K/mcL (0.0-0.6); Eosinophils % 2.9 %; Hematocrit 30.2 % (35.3-44.9); Hemoglobin 9.1 g/dL (11.5-15.4); Immature Granulocytes % 0.3 % (0-4); Lymphocytes # 2.1 K/mcL (0.6-4.6); Mean Corpuscular HGB Conc 30.1 g/dL (31.6-35.5); Mean Corpuscular Hemoglobin 29.2 pg (28.0-33.3); Mean Corpuscular Volume 96.8 fL (83.0-100.0); Mean Platelet Volume 11.6 fL (9.4-12.4); Monocytes # 0.7 K/mcL (0.0-1.3); Monocytes % 10.7 %; Neutrophils # 3.5 K/mcL (1.6-8.9); Platelet Count 126 K/mcL (140-400); Red Blood Count 3.12 M/mcL (3.82-4.97); Segmented Neutrophils % 53.5 %; White Blood Count 6.6 K/mcL (4.3-11.1)
[2020-10-01 03:19] LABS: Calcium 8.5 mg/dL (8.6-10.3); Magnesium 1.8 mg/dL (1.6-2.6); Phosphorous 4.1 mg/dL (2.7-4.5); Potassium 3.9 mEq/L (3.5-5.1)
[2020-10-01] MEDS ORDERED: Insulin LISPRO 300 UNITS/3 ML VIAL SUBQ SCH (07:30)
[2020-10-01 07:52] VITALS: BP 187/88
[2020-10-01] MEDS ORDERED: hydrALAZINE 25 MG TABLET PO SCH (09:00)
[2020-10-01] MEDS ORDERED: Multivit/Ca/Min/Fe/FA 1 TAB TABLET PO SCH (09:00)
[2020-10-01] MEDS ORDERED: NON-FORMULARY MEDICATION 1 EACH EACH (C,E,Zinc,Copper 11/Omega3s/Lut [Ocuvite Adult 50 Plu PO SCH (09:00)
[2020-10-01] MEDS: carvediloL 25 MG TABLET PO SCH (09:17)
== END 2020-10-01 11:09 | disposition home or self-care (01) ==
LOC: 2ANU 14:31 → EMEROOARM 14:31 → 2ANU 20:05
PROVIDERS: ADMIT Internal Medicine; ATTEND Internal Medicine

== ENCOUNTER 2021-01-09 12:39 | Inpatient (IN) ==
[2021-01-09 13:40] LABS: Basophils % 0.5 %; Eosinophils # 0.1 K/mcL (0.0-0.6); Hematocrit 30.3 % (35.3-44.9); Hemoglobin 9.1 g/dL (11.5-15.4); Immature Granulocytes % 0.3 % (0-4); Lymphocytes # 1.2 K/mcL (0.6-4.6); Lymphocytes % 18.5 %; Mean Corpuscular Hemoglobin 28.3 pg (28.0-33.3); Mean Corpuscular Volume 94.1 fL (83.0-100.0); Mean Platelet Volume 11.8 fL (9.4-12.4); Monocytes # 0.5 K/mcL (0.0-1.3); Neutrophils # 4.7 K/mcL (1.6-8.9); Platelet Count 156 K/mcL (140-400); Red Blood Count 3.22 M/mcL (3.82-4.97); Red Cell Distribution Width 14.6 % (11.5-14.5); Segmented Neutrophils % 70.7 %; White Blood Count 6.6 K/mcL (4.3-11.1)
[2021-01-09 13:48] LABS: INR 1.2; Prothrombin Time 13.3 Seconds (9.4-12.1)
[2021-01-09 13:51] LABS: Activated Partial Thrombo Time 36.6 Seconds (26.0-36.0)
[2021-01-09 14:01] LABS: BUN/Creatinine Ratio 24 (6-26); Blood Urea Nitrogen 51 mg/dL (8-23); Calcium 8.8 mg/dL (8.6-10.3); Carbon Dioxide 26 mEq/L (23-29); Chloride 111 mEq/L (98-107); Glucose 124 mg/dL (70-105); Osmolality,Calculated 311 (280-300); Potassium 4.9 mEq/L (3.5-5.1); Sodium 143 mEq/L (136-145); eGFR For African Americans 27 (> 60); eGFR For Non-African Americans 23 (> 60)
[2021-01-09 14:02] LABS: Troponin I < 0.03 ng/mL (< 0.04)
[2021-01-09] MEDS ORDERED: Ipratropium/Albuterol Neb 3 ML IH ONE (14:12)
[2021-01-09] MEDS ORDERED: Furosemide 20 MG/2 ML VIAL IVP ONE (14:12)
[2021-01-09] MEDS ORDERED: Naloxone 0.4 MG/ML INJ IVP PRN (14:35)
[2021-01-09] MEDS ORDERED: Ondansetron 4 MG/2 ML VIAL IVP PRN (14:35)
[2021-01-09] MEDS ORDERED: Furosemide 40 MG/4 ML VIAL IVP SCH (21:00)
[2021-01-09] MEDS ORDERED: *HR* Metoprolol 5 MG/5 ML VIAL IVP ONE (21:29)
[2021-01-09] MEDS: hydrALAZINE 25 MG TABLET PO SCH (23:47)
[2021-01-10 03:30] LABS: Basophils % 0.5 %; Eosinophils # 0.2 K/mcL (0.0-0.6); Eosinophils % 2.1 %; Hematocrit 27.8 % (35.3-44.9); Hemoglobin 8.3 g/dL (11.5-15.4); Immature Granulocytes % 0.2 % (0-4); Lymphocytes # 1.5 K/mcL (0.6-4.6); Mean Corpuscular HGB Conc 29.9 g/dL (31.6-35.5); Mean Corpuscular Hemoglobin 28.1 pg (28.0-33.3); Mean Corpuscular Volume 94.2 fL (83.0-100.0); Mean Platelet Volume 11.3 fL (9.4-12.4); Monocytes # 0.7 K/mcL (0.0-1.3); Monocytes % 8.3 %; Neutrophils # 5.6 K/mcL (1.6-8.9); Platelet Count 156 K/mcL (140-400); Red Blood Count 2.95 M/mcL (3.82-4.97); Red Cell Distribution Width 14.6 % (11.5-14.5); Segmented Neutrophils % 69.9 %; White Blood Count 8.1 K/mcL (4.3-11.1)
[2021-01-10 03:43] LABS: Calcium 8.5 mg/dL (8.6-10.3); Magnesium 1.4 mg/dL (1.6-2.6); Potassium 4.4 mEq/L (3.5-5.1)
[2021-01-10 05:04] LABS: Estimated Average Glucose 126 mg/dl
[2021-01-10] MEDS: *HR* Enoxaparin 30 MG/0.3 ML SYRINGE SQ SCH (05:43)
[2021-01-10] MEDS: Multivit/Ca/Min/Fe/FA 1 TAB TABLET PO SCH (08:33)
[2021-01-10] MEDS: hydrALAZINE 25 MG TABLET PO SCH ×3 (08:33→23:50)
[2021-01-10] MEDS: Furosemide 240 MG in 0.9 % Sodium Chloride 96 ML IVC SCH (08:34)
[2021-01-10] MEDS: carvediloL 6.25 MG TABLET PO SCH ×2 (08:34→16:32)
[2021-01-10] MEDS: Cholecalciferol (D-3) 1,000 UNIT (25MCG) TABLET PO SCH (08:34)
[2021-01-10] MEDS ORDERED: NON-FORMULARY MEDICATION 1 EACH EACH (C,E,Zinc,Copper 11/Omega3s/Lut [Ocuvite Adult 50 Plu PO SCH (09:00)
[2021-01-10] MEDS: Magnesium Oxide 400 MG TABLET PO SCH (20:26)
[2021-01-11 02:07] LABS: Basophils % 0.5 %; Eosinophils # 0.2 K/mcL (0.0-0.6); Eosinophils % 2.4 %; Hematocrit 26.2 % (35.3-44.9); Hemoglobin 7.7 g/dL (11.5-15.4); Immature Granulocytes % 0.3 % (0-4); Immature Platelets 5.7 % (1.1-6.1); Lymphocytes # 1.6 K/mcL (0.6-4.6); Lymphocytes % 25.4 %; Mean Corpuscular HGB Conc 29.4 g/dL (31.6-35.5); Mean Corpuscular Volume 95.3 fL (83.0-100.0); Mean Platelet Volume 11.6 fL (9.4-12.4); Monocytes # 0.7 K/mcL (0.0-1.3); Monocytes % 10.5 %; Neutrophils # 3.8 K/mcL (1.6-8.9); Platelet Count 140 K/mcL (140-400); Red Blood Count 2.75 M/mcL (3.82-4.97); Red Cell Distribution Width 14.8 % (11.5-14.5); Segmented Neutrophils % 60.9 %; White Blood Count 6.3 K/mcL (4.3-11.1)
[2021-01-11 02:27] LABS: Calcium 7.9 mg/dL (8.6-10.3); Magnesium 1.8 mg/dL (1.6-2.6); Potassium 4.8 mEq/L (3.5-5.1)
[2021-01-11] MEDS: *HR* Enoxaparin 30 MG/0.3 ML SYRINGE SQ SCH (04:48)
[2021-01-11] MEDS: Furosemide 240 MG in 0.9 % Sodium Chloride 96 ML IVC SCH (07:20)
[2021-01-11] MEDS: hydrALAZINE 25 MG TABLET PO SCH ×3 (07:21→23:58)
[2021-01-11] MEDS: Cholecalciferol (D-3) 1,000 UNIT (25MCG) TABLET PO SCH (07:21)
[2021-01-11] MEDS: carvediloL 6.25 MG TABLET PO SCH ×2 (07:21→16:25)
[2021-01-11] MEDS: Multivit/Ca/Min/Fe/FA 1 TAB TABLET PO SCH (07:21)
[2021-01-11] MEDS: Magnesium Oxide 400 MG TABLET PO SCH ×2 (07:21→20:08)
[2021-01-12 01:25] LABS: Hemoglobin 7.7 g/dL (11.5-15.4); Mean Platelet Volume 11.6 fL (9.4-12.4)
[2021-01-12 01:26] LABS: Basophils % 0.3 %; Eosinophils # 0.1 K/mcL (0.0-0.6); Hematocrit 26.1 % (35.3-44.9); Immature Granulocytes % 0.7 % (0-4); Lymphocytes # 1.6 K/mcL (0.6-4.6); Lymphocytes % 15.3 %; Mean Corpuscular HGB Conc 29.5 g/dL (31.6-35.5); Mean Corpuscular Hemoglobin 28.6 pg (28.0-33.3); Monocytes # 1.1 K/mcL (0.0-1.3); Monocytes % 10.2 %; Platelet Count 134 K/mcL (140-400); Red Blood Count 2.69 M/mcL (3.82-4.97); Red Cell Distribution Width 14.5 % (11.5-14.5); Segmented Neutrophils % 72.5 %; White Blood Count 10.4 K/mcL (4.3-11.1)
[2021-01-12 01:27] LABS: Neutrophils # 7.5 K/mcL (1.6-8.9)
[2021-01-12 01:45] LABS: Calcium 7.9 mg/dL (8.6-10.3); Magnesium 1.7 mg/dL (1.6-2.6); Potassium 4.6 mEq/L (3.5-5.1)
[2021-01-12] MEDS: *HR* Enoxaparin 30 MG/0.3 ML SYRINGE SQ SCH (04:40)
[2021-01-12] MEDS: Multivit/Ca/Min/Fe/FA 1 TAB TABLET PO SCH (08:08)
[2021-01-12] MEDS: Cholecalciferol (D-3) 1,000 UNIT (25MCG) TABLET PO SCH (08:08)
[2021-01-12] MEDS: carvediloL 6.25 MG TABLET PO SCH ×2 (08:08→16:59)
[2021-01-12] MEDS: hydrALAZINE 25 MG TABLET PO SCH ×3 (08:08→23:43)
[2021-01-12] MEDS: Magnesium Oxide 400 MG TABLET PO SCH ×2 (08:08→20:18)
[2021-01-12] MEDS ORDERED: Furosemide 40 MG/4 ML VIAL IVP ONE (08:51)
[2021-01-12 09:54] LABS: Bilirubin,Urine Negative (Negative); Blood,Urine Small (Negative); Clarity,Urine Ex.Turbid (Clear); Color,Urine Light-Yellow (Yellow); Glucose,Urine (UA) Normal (Normal); Ketones,Urine Negative (Negative); Leukocyte Esterase,Urine Large (Negative); Nitrite,Urine Negative (Negative); Protein,Urine 100 mg/dL (Neg-Trace); Urobilinogen,Urine Normal (Normal)
[2021-01-12] MEDS: Albumin 25% 25gram/100mL 25 GM/100 ML IV.SOLN IVPB SCH ×2 (10:03→16:59)
[2021-01-12 10:29] LABS: Protein/Creatinine Ratio,Urine 5.64 mg/mg (0.00-0.20); Sodium, Urine 129.3 mEq/L
[2021-01-12 10:31] LABS: Bacteria,Urine Many per hpf (None-Few); WBC,Urine TNTC per hpf (0-3)
[2021-01-12 10:33] LABS: RBC,Urine 0-3 per hpf (0-3)
[2021-01-12 10:34] LABS: Transitional Epi Cells,Urine Few per hpf (None-Few)
[2021-01-12 15:48] LABS: Calcium 8.1 mg/dL (8.6-10.3); Potassium 4.3 mEq/L (3.5-5.1)
[2021-01-12 16:18] LABS: Folate 16.8 ng/mL (3.0-16.0)
[2021-01-12] MEDS: cefTRIAXone 1,000 MG in 0.9 % Sodium Chloride Mini Bag 100 ML IVPB SCH (16:58)
[2021-01-12] MEDS ORDERED: Furosemide 40 MG TABLET PO SCH (18:00)
[2021-01-13] MEDS: Albumin 25% 25gram/100mL 25 GM/100 ML IV.SOLN IVPB SCH ×3 (00:48→16:37)
[2021-01-13] MEDS: *HR* Heparin 5,000 UNIT/ML VIAL SQ SCH ×3 (05:24→21:55)
[2021-01-13 07:49] LABS: Basophils % 0.3 %; Eosinophils # 0.1 K/mcL (0.0-0.6); Eosinophils % 0.8 %; Hematocrit 23.4 % (35.3-44.9); Immature Granulocytes % 0.3 % (0-4); Lymphocytes # 1.3 K/mcL (0.6-4.6); Lymphocytes % 14.2 %; Mean Corpuscular HGB Conc 29.9 g/dL (31.6-35.5); Mean Corpuscular Hemoglobin 28.5 pg (28.0-33.3); Mean Corpuscular Volume 95.1 fL (83.0-100.0); Monocytes # 1.1 K/mcL (0.0-1.3); Monocytes % 12.7 %; Neutrophils # 6.4 K/mcL (1.6-8.9); Platelet Count 114 K/mcL (140-400); Red Blood Count 2.46 M/mcL (3.82-4.97); Red Cell Distribution Width 14.4 % (11.5-14.5); Segmented Neutrophils % 71.7 %; White Blood Count 8.9 K/mcL (4.3-11.1)
[2021-01-13] MEDS: hydrALAZINE 25 MG TABLET PO SCH ×2 (08:13→16:36)
[2021-01-13] MEDS: carvediloL 6.25 MG TABLET PO SCH ×2 (08:13→16:36)
[2021-01-13] MEDS: Cholecalciferol (D-3) 1,000 UNIT (25MCG) TABLET PO SCH (08:13)
[2021-01-13] MEDS: Magnesium Oxide 400 MG TABLET PO SCH ×2 (08:13→20:24)
[2021-01-13] MEDS: Multivit/Ca/Min/Fe/FA 1 TAB TABLET PO SCH (08:13)
[2021-01-13 08:14] LABS: Calcium 8.6 mg/dL (8.6-10.3); Potassium 4.3 mEq/L (3.5-5.1)
[2021-01-13] MEDS: cefTRIAXone 1,000 MG in 0.9 % Sodium Chloride Mini Bag 100 ML IVPB SCH (08:14)
[2021-01-13 12:34] LABS: Hematocrit 24.3 % (35.3-44.9); Hemoglobin 7.2 g/dL (11.5-15.4)
[2021-01-13 15:57] LABS: Calcium 8.8 mg/dL (8.6-10.3); Potassium 4.3 mEq/L (3.5-5.1)
[2021-01-14] MEDS: hydrALAZINE 25 MG TABLET PO SCH ×3 (00:31→17:49)
[2021-01-14] MEDS: Albumin 25% 25gram/100mL 25 GM/100 ML IV.SOLN IVPB SCH (00:32)
[2021-01-14 01:48] LABS: Basophils % 0.3 %; Immature Granulocytes % 0.3 % (0-4); Mean Corpuscular Volume 94.5 fL (83.0-100.0); Mean Platelet Volume 11.7 fL (9.4-12.4)
[2021-01-14 01:49] LABS: Eosinophils % 0.3 %; Hematocrit 22.2 % (35.3-44.9); Hemoglobin 6.6 g/dL (11.5-15.4); Immature Platelets 6.1 % (1.1-6.1); Lymphocytes # 1.3 K/mcL (0.6-4.6); Lymphocytes % 14.7 %; Mean Corpuscular HGB Conc 29.7 g/dL (31.6-35.5); Mean Corpuscular Hemoglobin 28.1 pg (28.0-33.3); Monocytes # 1.2 K/mcL (0.0-1.3); Monocytes % 13.9 %; Neutrophils # 6.1 K/mcL (1.6-8.9); Platelet Count 114 K/mcL (140-400); Red Blood Count 2.35 M/mcL (3.82-4.97); Red Cell Distribution Width 14.3 % (11.5-14.5); Segmented Neutrophils % 70.5 %; White Blood Count 8.7 K/mcL (4.3-11.1)
[2021-01-14 02:07] LABS: Potassium 4.2 mEq/L (3.5-5.1)
[2021-01-14] MEDS: *HR* Heparin 5,000 UNIT/ML VIAL SQ SCH ×2 (06:26→14:06)
[2021-01-14] MEDS ORDERED: Lidocaine -MPF 2% 5 ML VIAL ONE (08:35)
[2021-01-14] MEDS ORDERED: *HR* Propofol 200 MG/20 ML VIAL IVP ONE (08:36)
[2021-01-14] MEDS: Multivit/Ca/Min/Fe/FA 1 TAB TABLET PO SCH (10:00)
[2021-01-14] MEDS: Magnesium Oxide 400 MG TABLET PO SCH ×2 (10:00→20:43)
[2021-01-14] MEDS: Cholecalciferol (D-3) 1,000 UNIT (25MCG) TABLET PO SCH (10:00)
[2021-01-14] MEDS: cefTRIAXone 1,000 MG in 0.9 % Sodium Chloride Mini Bag 100 ML IVPB SCH (10:01)
[2021-01-14] MEDS: carvediloL 6.25 MG TABLET PO SCH ×2 (10:01→17:48)
[2021-01-14] MEDS ORDERED: 0.9 % Sodium Chloride 250 ML ONE (13:12)
[2021-01-14] MEDS ORDERED: D5% in Water 1,000 ML IVC PRN (18:52)
[2021-01-14] MEDS ORDERED: Dextrose Gel 15 GM/37.5 ML TUBE PO PRN ×2 (18:52)
[2021-01-14] MEDS ORDERED: *HR* Dextrose 50 % in Water (Syg) 50 ML SYRINGE IVP PRN (18:52)
[2021-01-14 19:35] LABS: Hematocrit 25.7 % (35.3-44.9); Hemoglobin 7.5 g/dL (11.5-15.4)
[2021-01-14] MEDS: Melatonin 3 MG TABLET PO PRN (20:43)
[2021-01-15] MEDS: hydrALAZINE 25 MG TABLET PO SCH ×3 (00:35→16:27)
[2021-01-15 05:52] LABS: Basophils % 0.4 %; Eosinophils # 0.1 K/mcL (0.0-0.6); Eosinophils % 1.3 %; Hematocrit 25.6 % (35.3-44.9); Hemoglobin 7.8 g/dL (11.5-15.4); Immature Granulocytes % 0.4 % (0-4); Lymphocytes # 0.9 K/mcL (0.6-4.6); Lymphocytes % 10.1 %; Mean Corpuscular HGB Conc 30.5 g/dL (31.6-35.5); Mean Corpuscular Hemoglobin 28.1 pg (28.0-33.3); Mean Corpuscular Volume 92.1 fL (83.0-100.0); Monocytes # 0.9 K/mcL (0.0-1.3); Monocytes % 10.7 %; Neutrophils # 6.5 K/mcL (1.6-8.9); Platelet Count 120 K/mcL (140-400); Red Blood Count 2.78 M/mcL (3.82-4.97); Red Cell Distribution Width 14.7 % (11.5-14.5); Segmented Neutrophils % 77.1 %; White Blood Count 8.4 K/mcL (4.3-11.1)
[2021-01-15 06:17] LABS: Magnesium 1.9 mg/dL (1.6-2.6); Phosphorous 5.6 mg/dL (2.7-4.5); Potassium 4.5 mEq/L (3.5-5.1)
[2021-01-15] MEDS: Insulin LISPRO 300 UNITS/3 ML VIAL SUBQ SCH ×3 (07:33→17:22)
[2021-01-15] MEDS: Magnesium Oxide 400 MG TABLET PO SCH ×2 (08:23→20:16)
[2021-01-15] MEDS: Cholecalciferol (D-3) 1,000 UNIT (25MCG) TABLET PO SCH (08:23)
[2021-01-15] MEDS: Multivit/Ca/Min/Fe/FA 1 TAB TABLET PO SCH (08:23)
[2021-01-15] MEDS: cefTRIAXone 1,000 MG in 0.9 % Sodium Chloride Mini Bag 100 ML IVPB SCH (08:24)
[2021-01-15] MEDS: carvediloL 6.25 MG TABLET PO SCH ×2 (08:24→17:20)
[2021-01-15] MEDS: Albumin 25% 25gram/100mL 25 GM/100 ML IV.SOLN IVPB SCH ×2 (10:31→18:02)
[2021-01-15 20:08] LABS: Hematocrit 24.6 % (35.3-44.9); Hemoglobin 7.2 g/dL (11.5-15.4)
[2021-01-16] MEDS: Albumin 25% 25gram/100mL 25 GM/100 ML IV.SOLN IVPB SCH (03:43)
[2021-01-16 07:20] LABS: Hematocrit 25.2 % (35.3-44.9); Hemoglobin 7.4 g/dL (11.5-15.4); Mean Corpuscular HGB Conc 29.4 g/dL (31.6-35.5); Mean Corpuscular Hemoglobin 27.4 pg (28.0-33.3); Mean Corpuscular Volume 93.3 fL (83.0-100.0); Mean Platelet Volume 11.8 fL (9.4-12.4); Platelet Count 115 K/mcL (140-400); Red Cell Distribution Width 14.5 % (11.5-14.5); White Blood Count 5.6 K/mcL (4.3-11.1)
[2021-01-16 07:25] LABS: Calcium 8.9 mg/dL (8.6-10.3); Phosphorous 6.2 mg/dL (2.7-4.5); Potassium 4.8 mEq/L (3.5-5.1)
[2021-01-16] MEDS: Insulin LISPRO 300 UNITS/3 ML VIAL SUBQ SCH ×3 (08:09→17:28)
[2021-01-16] MEDS: Magnesium Oxide 400 MG TABLET PO SCH ×2 (08:15→20:26)
[2021-01-16] MEDS: Cholecalciferol (D-3) 1,000 UNIT (25MCG) TABLET PO SCH (08:15)
[2021-01-16] MEDS: carvediloL 6.25 MG TABLET PO SCH ×2 (08:15→17:17)
[2021-01-16] MEDS: Multivit/Ca/Min/Fe/FA 1 TAB TABLET PO SCH (08:15)
[2021-01-16] MEDS ORDERED: 0.9 % Sodium Chloride 250 ML IVC PRN (10:29)
[2021-01-16] MEDS ORDERED: Albumin 25% 25gram/100mL 25 GM/100 ML IV.SOLN IVPB PRN (10:29)
[2021-01-16] MEDS ORDERED: 0.9 % Sodium Chloride 1,000 ML PRIME SCH (10:30)
[2021-01-16] MEDS ORDERED: Heparin 1,000 UNITS/500 mL 500 ML ONE (14:22)
[2021-01-16 14:31] LABS: Hepatitis B Surface Antibody < 3.10 mIU/mL
[2021-01-16 14:42] LABS: Hepatitis B Surface Antigen Nonreactive (Nonreactive)
[2021-01-16] MEDS ORDERED: *HR* Heparin 5,000 UNIT/ML VIAL ONE (14:56)
[2021-01-17 05:35] LABS: Hematocrit 25.8 % (35.3-44.9); Hemoglobin 7.5 g/dL (11.5-15.4); Mean Corpuscular HGB Conc 29.1 g/dL (31.6-35.5); Mean Corpuscular Hemoglobin 27.6 pg (28.0-33.3); Mean Corpuscular Volume 94.9 fL (83.0-100.0); Mean Platelet Volume 11.2 fL (9.4-12.4); Platelet Count 131 K/mcL (140-400); Red Blood Count 2.72 M/mcL (3.82-4.97); Red Cell Distribution Width 14.2 % (11.5-14.5); White Blood Count 5.7 K/mcL (4.3-11.1)
[2021-01-17 05:57] LABS: Calcium 8.6 mg/dL (8.6-10.3); Potassium 4.6 mEq/L (3.5-5.1)
[2021-01-17] MEDS ORDERED: *HR* Heparin 10,000 UNIT/10 ML VIAL IV PRN (08:31)
[2021-01-17] MEDS ORDERED: 0.9 % Sodium Chloride 250 ML IVC PRN (08:31)
[2021-01-17] MEDS: carvediloL 6.25 MG TABLET PO SCH ×2 (08:53→16:48)
[2021-01-17] MEDS: Magnesium Oxide 400 MG TABLET PO SCH ×2 (08:53→19:58)
[2021-01-17] MEDS: Insulin LISPRO 300 UNITS/3 ML VIAL SUBQ SCH ×3 (08:53→16:48)
[2021-01-17] MEDS: Multivit/Ca/Min/Fe/FA 1 TAB TABLET PO SCH (08:53)
[2021-01-17] MEDS: Cholecalciferol (D-3) 1,000 UNIT (25MCG) TABLET PO SCH (08:53)
[2021-01-17 17:58] LABS: Basophils % 0.3 %; Immature Granulocytes % 0.3 % (0-4); Lymphocytes % 8.2 %
[2021-01-17 18:00] LABS: Eosinophils # 0.1 K/mcL (0.0-0.6); Eosinophils % 2.1 %; Hematocrit 29.5 % (35.3-44.9); Hemoglobin 8.8 g/dL (11.5-15.4); Immature Platelets 5.6 % (1.1-6.1); Lymphocytes # 0.5 K/mcL (0.6-4.6); Mean Corpuscular HGB Conc 29.8 g/dL (31.6-35.5); Mean Corpuscular Hemoglobin 27.9 pg (28.0-33.3); Mean Corpuscular Volume 93.7 fL (83.0-100.0); Mean Platelet Volume 10.8 fL (9.4-12.4); Monocytes # 0.5 K/mcL (0.0-1.3); Monocytes % 8.5 %; Platelet Count 137 K/mcL (140-400); Red Blood Count 3.15 M/mcL (3.82-4.97); Segmented Neutrophils % 80.6 %; White Blood Count 6.2 K/mcL (4.3-11.1)
[2021-01-17] MEDS: Melatonin 3 MG TABLET PO PRN (21:16)
[2021-01-18] MEDS: NIFEdipine XL (24 HR) 30 MG TAB.ER.24 PO SCH (09:27)
[2021-01-18] MEDS: Magnesium Oxide 400 MG TABLET PO SCH ×2 (09:27→20:37)
[2021-01-18] MEDS: carvediloL 6.25 MG TABLET PO SCH ×2 (09:27→17:33)
[2021-01-18] MEDS: Insulin LISPRO 300 UNITS/3 ML VIAL SUBQ SCH ×3 (09:27→17:33)
[2021-01-18] MEDS: Renal Vitamin 1 CAP CAPSULE PO SCH (09:27)
[2021-01-18] MEDS: Cholecalciferol (D-3) 1,000 UNIT (25MCG) TABLET PO SCH (09:27)
[2021-01-18 12:44] LABS: Basophils % 0.3 %; Eosinophils % 0.3 %; Hematocrit 31.1 % (35.3-44.9); Hemoglobin 9.3 g/dL (11.5-15.4); Immature Granulocytes % 0.4 % (0-4); Lymphocytes # 0.8 K/mcL (0.6-4.6); Lymphocytes % 6.5 %; Mean Corpuscular HGB Conc 29.9 g/dL (31.6-35.5); Mean Corpuscular Hemoglobin 27.9 pg (28.0-33.3); Mean Corpuscular Volume 93.4 fL (83.0-100.0); Mean Platelet Volume 10.6 fL (9.4-12.4); Monocytes # 1.1 K/mcL (0.0-1.3); Monocytes % 9.2 %; Neutrophils # 9.6 K/mcL (1.6-8.9); Platelet Count 138 K/mcL (140-400); Red Blood Count 3.33 M/mcL (3.82-4.97); Red Cell Distribution Width 13.6 % (11.5-14.5); Segmented Neutrophils % 83.3 %
[2021-01-18 12:45] LABS: White Blood Count 11.5 K/mcL (4.3-11.1)
[2021-01-18 13:02] LABS: Albumin 3.4 g/dL (3.5-5.7); Albumin/Globulin Ratio 1.4 (1.1-2.2); Bilirubin,Direct 0.2 mg/dL (0.0-0.2); Bilirubin,Indirect 0.3 mg/dL (0.0-1.0); Bilirubin,Total 0.5 mg/dL (0.3-1.0); Globulin 2.4 g/dL (2.4-3.5); Phosphorous 3.4 mg/dL (2.7-4.5); Potassium 4.5 mEq/L (3.5-5.1); Total Protein 5.8 g/dL (6.4-8.9)
[2021-01-18] MEDS: Ipratropium/Albuterol Neb 3 ML IH SCH ×2 (15:46→20:28)
[2021-01-18 18:53] LABS: VBG HCO3 29 mEq/L (21-27); VBG PCO2 60 mmHg (41-51); VBG PO2 100 mmHg (25-50)
[2021-01-18] MEDS ORDERED: QUEtiapine Fumarate 25 MG TABLET PO SCH (21:00)
[2021-01-19 03:04] LABS: Basophils % 0.2 %; Eosinophils # 0.2 K/mcL (0.0-0.6); Eosinophils % 2.2 %; Hematocrit 29.1 % (35.3-44.9); Hemoglobin 8.7 g/dL (11.5-15.4); Immature Granulocytes % 0.5 % (0-4); Lymphocytes # 1.1 K/mcL (0.6-4.6); Lymphocytes % 12.7 %; Mean Corpuscular HGB Conc 29.9 g/dL (31.6-35.5); Mean Corpuscular Hemoglobin 27.8 pg (28.0-33.3); Mean Platelet Volume 10.7 fL (9.4-12.4); Monocytes % 11.8 %; Neutrophils # 6.4 K/mcL (1.6-8.9); Platelet Count 147 K/mcL (140-400); Red Blood Count 3.13 M/mcL (3.82-4.97); Red Cell Distribution Width 13.7 % (11.5-14.5); Segmented Neutrophils % 72.6 %; White Blood Count 8.8 K/mcL (4.3-11.1)
[2021-01-19 03:07] LABS: Bacteria,Urine Moderate per hpf (None-Few); Bilirubin,Urine Negative (Negative); Blood,Urine Moderate (Negative); Budding Yeast,Urine Many per hpf (None Seen); Clarity,Urine Ex.Turbid (Clear); Color,Urine Dark-Yellow (Yellow); Glucose,Urine (UA) 50 mg/dL (Normal); Ketones,Urine Negative (Negative); Leukocyte Esterase,Urine Large (Negative); Mucus,Urine Few per lpf (None-Few); Nitrite,Urine Negative (Negative); Protein,Urine >=600 mg/dL (Neg-Trace); Specific Gravity,Urine > 1.030 (1.010-1.025); Squamous Epithelial Cell,Urine Few per hpf (None-Few); Urobilinogen,Urine Normal (Normal); WBC,Urine 50-100 per hpf (0-3)
[2021-01-19 03:29] LABS: Magnesium 2.1 mg/dL (1.6-2.6); Potassium 4.4 mEq/L (3.5-5.1)
[2021-01-19] MEDS: Ipratropium/Albuterol Neb 3 ML IH SCH ×4 (03:52→21:10)
[2021-01-19] MEDS: Insulin LISPRO 300 UNITS/3 ML VIAL SUBQ SCH ×3 (08:38→16:27)
[2021-01-19] MEDS ORDERED: levoFLOXacin 750 MG/150 ML 750 MG/150 ML BAG IVPB SCH (09:00)
[2021-01-19] MEDS: Cholecalciferol (D-3) 1,000 UNIT (25MCG) TABLET PO SCH (10:46)
[2021-01-19] MEDS: Renal Vitamin 1 CAP CAPSULE PO SCH (10:46)
[2021-01-19] MEDS: NIFEdipine XL (24 HR) 30 MG TAB.ER.24 PO SCH (10:46)
[2021-01-19] MEDS: carvediloL 6.25 MG TABLET PO SCH ×2 (10:47→16:27)
[2021-01-19] MEDS: Magnesium Oxide 400 MG TABLET PO SCH ×2 (10:47→21:11)
[2021-01-19] MEDS ORDERED: levoFLOXacin 750 MG/150 ML 750 MG/150 ML BAG IVPB ONE (11:00)
[2021-01-19] MEDS: Furosemide 20 MG TABLET PO SCH (13:56)
[2021-01-19] MEDS: cefTRIAXone 1,000 MG in 0.9 % Sodium Chloride Mini Bag 100 ML IVPB SCH (13:56)
[2021-01-19] MEDS: Lactobacillus 1 EACH CAP.SPRINK PO SCH (21:11)
[2021-01-19] MEDS: QUEtiapine Fumarate 25 MG TABLET PO SCH (21:11)
[2021-01-19] MEDS: Melatonin 3 MG TABLET PO PRN (21:23)
[2021-01-20] MEDS: Ipratropium/Albuterol Neb 3 ML IH SCH ×4 (03:58→20:55)
[2021-01-20 06:09] LABS: Basophils % 0.3 %; Eosinophils # 0.2 K/mcL (0.0-0.6); Eosinophils % 1.9 %; Hematocrit 29.6 % (35.3-44.9); Immature Granulocytes % 0.6 % (0-4); Lymphocytes # 1.2 K/mcL (0.6-4.6); Lymphocytes % 10.1 %; Mean Corpuscular HGB Conc 30.4 g/dL (31.6-35.5); Mean Corpuscular Hemoglobin 27.9 pg (28.0-33.3); Mean Corpuscular Volume 91.6 fL (83.0-100.0); Mean Platelet Volume 10.6 fL (9.4-12.4); Monocytes % 8.4 %; Neutrophils # 9.4 K/mcL (1.6-8.9); Platelet Count 158 K/mcL (140-400); Red Blood Count 3.23 M/mcL (3.82-4.97); Red Cell Distribution Width 13.5 % (11.5-14.5); Segmented Neutrophils % 78.7 %; White Blood Count 11.9 K/mcL (4.3-11.1)
[2021-01-20 06:34] LABS: Calcium 8.8 mg/dL (8.6-10.3); Potassium 4.6 mEq/L (3.5-5.1)
[2021-01-20] MEDS: Renal Vitamin 1 CAP CAPSULE PO SCH (08:16)
[2021-01-20] MEDS: NIFEdipine XL (24 HR) 30 MG TAB.ER.24 PO SCH (08:16)
[2021-01-20] MEDS: Cholecalciferol (D-3) 1,000 UNIT (25MCG) TABLET PO SCH (08:17)
[2021-01-20] MEDS: cefTRIAXone 1,000 MG in 0.9 % Sodium Chloride Mini Bag 100 ML IVPB SCH (08:17)
[2021-01-20] MEDS: Lactobacillus 1 EACH CAP.SPRINK PO SCH ×2 (08:17→20:26)
[2021-01-20] MEDS: carvediloL 6.25 MG TABLET PO SCH ×2 (08:17→18:02)
[2021-01-20] MEDS: Insulin LISPRO 300 UNITS/3 ML VIAL SUBQ SCH ×3 (08:24→18:04)
[2021-01-20] MEDS: Magnesium Oxide 400 MG TABLET PO SCH ×2 (08:26→20:32)
[2021-01-20] MEDS: Furosemide 20 MG TABLET PO SCH (08:27)
[2021-01-20] MEDS: QUEtiapine Fumarate 25 MG TABLET PO SCH (20:26)
[2021-01-21] MEDS: Melatonin 3 MG TABLET PO PRN (01:11)
[2021-01-21] MEDS: Ipratropium/Albuterol Neb 3 ML IH SCH ×4 (03:50→20:25)
[2021-01-21 06:34] LABS: Hematocrit 29.6 % (35.3-44.9); Mean Corpuscular HGB Conc 30.4 g/dL (31.6-35.5); Mean Corpuscular Volume 91.9 fL (83.0-100.0); Mean Platelet Volume 10.6 fL (9.4-12.4); Platelet Count 178 K/mcL (140-400); Red Blood Count 3.22 M/mcL (3.82-4.97); Red Cell Distribution Width 13.7 % (11.5-14.5); White Blood Count 12.4 K/mcL (4.3-11.1)
[2021-01-21 06:54] LABS: Magnesium 2.2 mg/dL (1.6-2.6); Phosphorous 4.3 mg/dL (2.7-4.5)
[2021-01-21] MEDS: carvediloL 6.25 MG TABLET PO SCH ×2 (08:20→15:20)
[2021-01-21] MEDS: NIFEdipine XL (24 HR) 30 MG TAB.ER.24 PO SCH (08:20)
[2021-01-21] MEDS: Insulin LISPRO 300 UNITS/3 ML VIAL SUBQ SCH ×4 (08:21→16:23)
[2021-01-21] MEDS: cefTRIAXone 1,000 MG in 0.9 % Sodium Chloride Mini Bag 100 ML IVPB SCH (08:34)
[2021-01-21] MEDS: Cholecalciferol (D-3) 1,000 UNIT (25MCG) TABLET PO SCH (10:48)
[2021-01-21] MEDS: Lactobacillus 1 EACH CAP.SPRINK PO SCH ×2 (10:48→20:17)
[2021-01-21] MEDS: Renal Vitamin 1 CAP CAPSULE PO SCH (10:48)
[2021-01-21] MEDS: Magnesium Oxide 400 MG TABLET PO SCH ×2 (10:48→20:18)
[2021-01-21] MEDS ORDERED: *HR* Heparin 10,000 UNIT/10 ML VIAL IV PRN (10:50)
[2021-01-21] MEDS ORDERED: 0.9 % Sodium Chloride 250 ML IVC PRN (10:50)
[2021-01-21] MEDS ORDERED: levoFLOXacin 500 MG/100 ML 500 MG/100 ML BAG IVPB SCH (11:00)
[2021-01-21 16:23] LABS: ABG Base Excess 3 mEq/L (-2 to 3); ABG HCO3 31 mEq/L (21-27); ABG Oxygen Saturation 70 % (95-98); ABG PCO2 72 mmHg (35-45); ABG PH 7.24 pH Units (7.32-7.45); ABG PO2 45 mmHg (85-104); ABG TCO2 34 mEq/L (20-26)
[2021-01-21] MEDS: QUEtiapine Fumarate 25 MG TABLET PO SCH (20:18)
[2021-01-22] MEDS: Ipratropium/Albuterol Neb 3 ML IH SCH ×4 (03:56→21:32)
[2021-01-22 05:06] LABS: Hematocrit 31.4 % (35.3-44.9); Hemoglobin 9.5 g/dL (11.5-15.4); Mean Corpuscular HGB Conc 30.3 g/dL (31.6-35.5); Mean Corpuscular Hemoglobin 28.4 pg (28.0-33.3); Mean Corpuscular Volume 93.7 fL (83.0-100.0); Mean Platelet Volume 10.7 fL (9.4-12.4); Platelet Count 196 K/mcL (140-400); Red Blood Count 3.35 M/mcL (3.82-4.97); Red Cell Distribution Width 13.8 % (11.5-14.5); White Blood Count 10.5 K/mcL (4.3-11.1)
[2021-01-22 05:25] LABS: Calcium 8.8 mg/dL (8.6-10.3); Magnesium 2.1 mg/dL (1.6-2.6); Phosphorous 4.2 mg/dL (2.7-4.5); Potassium 4.5 mEq/L (3.5-5.1)
[2021-01-22 09:44] LABS: ABG Base Excess 3 mEq/L (-2 to 3); ABG HCO3 31 mEq/L (21-27); ABG Oxygen Saturation 94 % (95-98); ABG PCO2 66 mmHg (35-45); ABG PH 7.28 pH Units (7.32-7.45); ABG PO2 82 mmHg (85-104); ABG TCO2 33 mEq/L (20-26); Blood Gas Modality BiLevel; Blood Gas VT 340 cc
[2021-01-22] MEDS: Magnesium Oxide 400 MG TABLET PO SCH ×2 (10:15→20:57)
[2021-01-22] MEDS: Lactobacillus 1 EACH CAP.SPRINK PO SCH ×2 (10:15→20:39)
[2021-01-22] MEDS: NIFEdipine XL (24 HR) 30 MG TAB.ER.24 PO SCH (10:15)
[2021-01-22] MEDS: Renal Vitamin 1 CAP CAPSULE PO SCH (10:15)
[2021-01-22] MEDS: cefTRIAXone 1,000 MG in 0.9 % Sodium Chloride Mini Bag 100 ML IVPB SCH (10:15)
[2021-01-22] MEDS: carvediloL 6.25 MG TABLET PO SCH ×2 (10:15→17:34)
[2021-01-22] MEDS: Cholecalciferol (D-3) 1,000 UNIT (25MCG) TABLET PO SCH (10:15)
[2021-01-22] MEDS: Insulin LISPRO 300 UNITS/3 ML VIAL SUBQ SCH ×3 (10:16→17:24)
[2021-01-22] MEDS ORDERED: 0.9 % Sodium Chloride 250 ML IVC PRN (11:38)
[2021-01-22] MEDS ORDERED: *HR* Heparin 10,000 UNIT/10 ML VIAL IV PRN (11:38)
[2021-01-22] MEDS ORDERED: Meropenem 1,000 MG in 0.9 % Sodium Chloride Mini Bag 100 ML IVP SCH (12:00)
[2021-01-22] MEDS ORDERED: *HR* Heparin 5,000 UNIT/ML VIAL ONE (12:47)
[2021-01-22] MEDS ORDERED: Meropenem 500 MG in Water for inj. (sterile) 10 ML IVP SCH (14:00)
[2021-01-22] MEDS ORDERED: Meropenem 500 MG in 0.9 % Sodium Chloride Mini Bag 100 ML IVPB SCH (14:00)
[2021-01-22] MEDS: QUEtiapine Fumarate 25 MG TABLET PO SCH (20:39)
[2021-01-22] MEDS: Melatonin 3 MG TABLET PO PRN (20:39)
[2021-01-23] MEDS: Ipratropium/Albuterol Neb 3 ML IH SCH ×4 (03:53→22:48)
[2021-01-23] MEDS ORDERED: *HR* Heparin 10,000 UNIT/10 ML VIAL IV PRN (08:11)
[2021-01-23] MEDS ORDERED: 0.9 % Sodium Chloride 250 ML IVC PRN (08:11)
[2021-01-23] MEDS: Insulin LISPRO 300 UNITS/3 ML VIAL SUBQ SCH ×3 (08:54→16:47)
[2021-01-23] MEDS: Cholecalciferol (D-3) 1,000 UNIT (25MCG) TABLET PO SCH (08:59)
[2021-01-23] MEDS: Magnesium Oxide 400 MG TABLET PO SCH ×2 (08:59→20:08)
[2021-01-23] MEDS: Lactobacillus 1 EACH CAP.SPRINK PO SCH ×2 (08:59→20:08)
[2021-01-23] MEDS: NIFEdipine XL (24 HR) 30 MG TAB.ER.24 PO SCH (08:59)
[2021-01-23] MEDS: Renal Vitamin 1 CAP CAPSULE PO SCH (08:59)
[2021-01-23] MEDS: carvediloL 6.25 MG TABLET PO SCH ×2 (08:59→16:48)
[2021-01-23 13:53] LABS: Hematocrit 31.2 % (35.3-44.9); Hemoglobin 9.4 g/dL (11.5-15.4); Mean Corpuscular HGB Conc 30.1 g/dL (31.6-35.5); Mean Corpuscular Hemoglobin 28.6 pg (28.0-33.3); Mean Corpuscular Volume 94.8 fL (83.0-100.0); Mean Platelet Volume 10.4 fL (9.4-12.4); Platelet Count 194 K/mcL (140-400); Red Blood Count 3.29 M/mcL (3.82-4.97); White Blood Count 9.1 K/mcL (4.3-11.1)
[2021-01-23 14:33] LABS: Calcium 8.4 mg/dL (8.6-10.3); Magnesium 2.3 mg/dL (1.6-2.6); Potassium 4.4 mEq/L (3.5-5.1)
[2021-01-23 14:34] LABS: Albumin/Globulin Ratio 1.3 (1.1-2.2); Bilirubin,Direct 0.1 mg/dL (0.0-0.2); Bilirubin,Indirect 0.2 mg/dL (0.0-1.0); Bilirubin,Total 0.3 mg/dL (0.3-1.0); Globulin 2.4 g/dL (2.4-3.5); Total Protein 5.4 g/dL (6.4-8.9)
[2021-01-23] MEDS: QUEtiapine Fumarate 25 MG TABLET PO SCH (20:08)
[2021-01-24] MEDS: Ipratropium/Albuterol Neb 3 ML IH SCH ×4 (03:59→21:44)
[2021-01-24] MEDS: Renal Vitamin 1 CAP CAPSULE PO SCH (08:33)
[2021-01-24] MEDS: Cholecalciferol (D-3) 1,000 UNIT (25MCG) TABLET PO SCH (08:33)
[2021-01-24] MEDS: NIFEdipine XL (24 HR) 30 MG TAB.ER.24 PO SCH (08:33)
[2021-01-24] MEDS: carvediloL 6.25 MG TABLET PO SCH ×2 (08:33→17:26)
[2021-01-24] MEDS: Lactobacillus 1 EACH CAP.SPRINK PO SCH ×2 (08:34→21:30)
[2021-01-24] MEDS: Magnesium Oxide 400 MG TABLET PO SCH ×2 (08:34→21:30)
[2021-01-24] MEDS: Insulin LISPRO 300 UNITS/3 ML VIAL SUBQ SCH ×3 (08:34→17:27)
[2021-01-24 09:20] LABS: Calcium 8.8 mg/dL (8.6-10.3); Potassium 4.4 mEq/L (3.5-5.1)
[2021-01-24 09:49] LABS: Basophils % 0.4 %; Eosinophils # 0.2 K/mcL (0.0-0.6); Eosinophils % 2.7 %; Hematocrit 29.5 % (35.3-44.9); Immature Granulocytes % 0.8 % (0-4); Lymphocytes # 1.3 K/mcL (0.6-4.6); Lymphocytes % 17.3 %; Mean Corpuscular HGB Conc 30.5 g/dL (31.6-35.5); Mean Corpuscular Hemoglobin 29.1 pg (28.0-33.3); Mean Corpuscular Volume 95.5 fL (83.0-100.0); Monocytes # 0.8 K/mcL (0.0-1.3); Monocytes % 9.8 %; Neutrophils # 5.4 K/mcL (1.6-8.9); Platelet Count 177 K/mcL (140-400); Red Blood Count 3.09 M/mcL (3.82-4.97); Red Cell Distribution Width 14.2 % (11.5-14.5); White Blood Count 7.8 K/mcL (4.3-11.1)
[2021-01-24 12:18] LABS: Hepatitis B Surface Antigen Nonreactive (Nonreactive)
[2021-01-24 12:49] LABS: Hepatitis A Antibody IgM Nonreactive (Nonreactive); Hepatitis B Core IgM Nonreactive (Nonreactive); Hepatitis C Virus Antibody Nonreactive (Nonreactive)
[2021-01-24] MEDS: QUEtiapine Fumarate 25 MG TABLET PO SCH (21:30)
[2021-01-25 04:08] LABS: Hepatitis B Surface Antigen Nonreactive (Nonreactive)
[2021-01-25] MEDS: Ipratropium/Albuterol Neb 3 ML IH SCH ×4 (04:17→21:38)
[2021-01-25 04:37] LABS: Hepatitis B Core IgM Nonreactive (Nonreactive); Hepatitis C Virus Antibody Nonreactive (Nonreactive)
[2021-01-25 04:39] LABS: Hepatitis A Antibody IgM Nonreactive (Nonreactive)
[2021-01-25] MEDS: Insulin LISPRO 300 UNITS/3 ML VIAL SUBQ SCH ×3 (07:03→17:30)
[2021-01-25] MEDS: Magnesium Oxide 400 MG TABLET PO SCH ×2 (09:32→20:52)
[2021-01-25] MEDS: Renal Vitamin 1 CAP CAPSULE PO SCH (09:32)
[2021-01-25] MEDS: Lactobacillus 1 EACH CAP.SPRINK PO SCH ×2 (09:32→20:52)
[2021-01-25] MEDS: NIFEdipine XL (24 HR) 30 MG TAB.ER.24 PO SCH (09:32)
[2021-01-25] MEDS: Cholecalciferol (D-3) 1,000 UNIT (25MCG) TABLET PO SCH (09:33)
[2021-01-25] MEDS: carvediloL 6.25 MG TABLET PO SCH ×2 (09:33→18:26)
[2021-01-25] MEDS: QUEtiapine Fumarate 25 MG TABLET PO SCH (20:52)
[2021-01-26] MEDS: Ipratropium/Albuterol Neb 3 ML IH SCH ×4 (03:22→20:36)
[2021-01-26] MEDS: Magnesium Oxide 400 MG TABLET PO SCH ×2 (07:49→20:19)
[2021-01-26] MEDS: Lactobacillus 1 EACH CAP.SPRINK PO SCH ×2 (07:49→20:19)
[2021-01-26] MEDS: Cholecalciferol (D-3) 1,000 UNIT (25MCG) TABLET PO SCH (07:49)
[2021-01-26] MEDS: Insulin LISPRO 300 UNITS/3 ML VIAL SUBQ SCH ×3 (07:49→16:56)
[2021-01-26] MEDS: Renal Vitamin 1 CAP CAPSULE PO SCH (07:49)
[2021-01-26 08:28] LABS: Hematocrit 29.6 % (35.3-44.9); Hemoglobin 9.2 g/dL (11.5-15.4); Mean Corpuscular HGB Conc 31.1 g/dL (31.6-35.5); Mean Corpuscular Hemoglobin 29.9 pg (28.0-33.3); Mean Corpuscular Volume 96.1 fL (83.0-100.0); Mean Platelet Volume 9.9 fL (9.4-12.4); Platelet Count 184 K/mcL (140-400); Red Blood Count 3.08 M/mcL (3.82-4.97); Red Cell Distribution Width 14.2 % (11.5-14.5)
[2021-01-26 08:32] LABS: White Blood Count 13.2 K/mcL (4.3-11.1)
[2021-01-26 08:49] LABS: Calcium 8.9 mg/dL (8.6-10.3); Potassium 5.3 mEq/L (3.5-5.1)
[2021-01-26] MEDS ORDERED: *HR* Heparin 10,000 UNIT/10 ML VIAL IV PRN (09:29)
[2021-01-26] MEDS ORDERED: Albumin 25% 25gram/100mL 25 GM/100 ML IV.SOLN IVPB PRN (09:29)
[2021-01-26] MEDS ORDERED: 0.9 % Sodium Chloride 250 ML IVC PRN ×2 (09:29→15:42)
[2021-01-26] MEDS: NIFEdipine XL (24 HR) 30 MG TAB.ER.24 PO SCH (10:36)
[2021-01-26] MEDS: carvediloL 6.25 MG TABLET PO SCH ×2 (10:36→16:25)
[2021-01-27] MEDS: Ipratropium/Albuterol Neb 3 ML IH SCH ×4 (04:44→19:56)
[2021-01-27 06:34] LABS: Hematocrit 29.3 % (35.3-44.9); Mean Corpuscular HGB Conc 30.7 g/dL (31.6-35.5); Mean Corpuscular Hemoglobin 28.9 pg (28.0-33.3); Mean Corpuscular Volume 94.2 fL (83.0-100.0); Platelet Count 174 K/mcL (140-400); Red Blood Count 3.11 M/mcL (3.82-4.97); Red Cell Distribution Width 14.3 % (11.5-14.5); White Blood Count 11.8 K/mcL (4.3-11.1)
[2021-01-27 06:54] LABS: Calcium 8.3 mg/dL (8.6-10.3); Potassium 4.6 mEq/L (3.5-5.1)
[2021-01-27] MEDS ORDERED: Colchicine 0.6 MG TABLET PO ONE (09:20)
[2021-01-27] MEDS: Renal Vitamin 1 CAP CAPSULE PO SCH (11:07)
[2021-01-27] MEDS: Magnesium Oxide 400 MG TABLET PO SCH ×2 (11:07→19:44)
[2021-01-27] MEDS: Cholecalciferol (D-3) 1,000 UNIT (25MCG) TABLET PO SCH (11:07)
[2021-01-27] MEDS: carvediloL 6.25 MG TABLET PO SCH ×2 (11:08→16:25)
[2021-01-27] MEDS: NIFEdipine XL (24 HR) 30 MG TAB.ER.24 PO SCH (11:08)
[2021-01-27] MEDS: Lactobacillus 1 EACH CAP.SPRINK PO SCH ×2 (11:08→19:44)
[2021-01-27] MEDS: Insulin LISPRO 300 UNITS/3 ML VIAL SUBQ SCH ×3 (11:12→16:23)
[2021-01-27] MEDS: predniSONE 10 MG TABLET PO SCH (11:19)
[2021-01-28 01:41] LABS: Hematocrit 27.6 % (35.3-44.9); Hemoglobin 8.6 g/dL (11.5-15.4); Mean Corpuscular HGB Conc 31.2 g/dL (31.6-35.5); Mean Corpuscular Hemoglobin 29.6 pg (28.0-33.3); Mean Corpuscular Volume 94.8 fL (83.0-100.0); Platelet Count 188 K/mcL (140-400); Red Blood Count 2.91 M/mcL (3.82-4.97); Red Cell Distribution Width 14.1 % (11.5-14.5); White Blood Count 12.7 K/mcL (4.3-11.1)
[2021-01-28 02:06] LABS: Calcium 8.4 mg/dL (8.6-10.3); Potassium 5.5 mEq/L (3.5-5.1)
[2021-01-28] MEDS: Ipratropium/Albuterol Neb 3 ML IH SCH (04:02)
[2021-01-28] MEDS: Cholecalciferol (D-3) 1,000 UNIT (25MCG) TABLET PO SCH (07:48)
[2021-01-28] MEDS: NIFEdipine XL (24 HR) 30 MG TAB.ER.24 PO SCH (07:48)
[2021-01-28] MEDS: Renal Vitamin 1 CAP CAPSULE PO SCH (07:49)
[2021-01-28] MEDS: predniSONE 10 MG TABLET PO SCH (07:49)
[2021-01-28] MEDS: Insulin LISPRO 300 UNITS/3 ML VIAL SUBQ SCH ×3 (07:49→16:33)
[2021-01-28] MEDS: Lactobacillus 1 EACH CAP.SPRINK PO SCH (07:49)
[2021-01-28] MEDS: Magnesium Oxide 400 MG TABLET PO SCH (07:49)
[2021-01-28] MEDS: carvediloL 6.25 MG TABLET PO SCH ×2 (07:49→16:31)
[2021-01-28] MEDS ORDERED: *HR* Heparin 10,000 UNIT/10 ML VIAL IV PRN (08:41)
[2021-01-28] MEDS ORDERED: 0.9 % Sodium Chloride 250 ML IVC PRN (08:41)
[2021-01-28] MEDS ORDERED: Ipratropium/Albuterol Neb 3 ML IH PRN (09:05)
[2021-01-28 15:38] LABS: Influenza A PCR Negative (Negative); Influenza B PCR Negative (Negative); Resp. Syncytial Virus PCR Negative (Negative)
[2021-01-28 15:45] LABS: SARS-CoV-2 by PCR (In House) Negative (Negative)
[2021-01-28 19:31] VITALS: BP 134/55; PULSE 77; TEMP 97.6; O2SAT 97
== END 2021-01-28 21:17 | DRG 291 ==
LOC: EMEROOARM 12:39 → 2ANU 15:08 → SUATTDRO 15:08 → 2ANU 15:58
PROVIDERS: ADMIT Hospitalist; ATTEND Internal Medicine
PROC: IRPERMA (2021-01-22 12:00)

== ENCOUNTER 2021-02-15 13:16 | Inpatient (IN) ==
[2021-02-15] MEDS ORDERED: Ipratropium/Albuterol Neb 3 ML IH PRN (16:49)
[2021-02-15 17:33] LABS: ABG Base Excess 1 mEq/L (-2 to 3); ABG HCO3 29 mEq/L (21-27); ABG Oxygen Saturation 94 % (95-98); ABG PCO2 64 mmHg (35-45); ABG PH 7.27 pH Units (7.32-7.45); ABG PO2 83 mmHg (85-104); ABG TCO2 31 mEq/L (20-26); Blood Gas Modality NIV; Blood Gas VT 400 cc
[2021-02-15] MEDS ORDERED: levoFLOXacin 750 MG/150 ML 750 MG/150 ML BAG IVPB SCH (18:00)
[2021-02-16] MEDS: MethylPREDNISolone 40 MG/ML VIAL IVP SCH ×4 (00:09→23:13)
[2021-02-16 01:11] LABS: Influenza A PCR Negative (Negative); Influenza B PCR Negative (Negative); Resp. Syncytial Virus PCR Negative (Negative)
[2021-02-16 01:15] LABS: SARS-CoV-2 by PCR (In House) Negative (Negative)
[2021-02-16] MEDS ORDERED: Albuterol 2.5 MG/3 ML NEBULIZER IH PRN (07:50)
[2021-02-16] MEDS ORDERED: carvediloL 6.25 MG TABLET PO SCH (08:00)
[2021-02-16] MEDS: NIFEdipine XL (24 HR) 30 MG TAB.ER.24 PO SCH (08:35)
[2021-02-16] MEDS: carvediloL 6.25 MG TABLET PO SCH ×2 (08:45→15:34)
[2021-02-16] MEDS: Renal Vitamin 1 CAP CAPSULE PO SCH (08:45)
[2021-02-16] MEDS ORDERED: levoFLOXacin 750 MG/150 ML 750 MG/150 ML BAG IVPB SCH (09:00)
[2021-02-16] MEDS ORDERED: *HR* HYDROmorphone (PF) 1 MG/ML SYRINGE IVP PRN (10:41)
[2021-02-16 11:07] LABS: ABG Base Excess 2 mEq/L (-2 to 3); ABG HCO3 27 mEq/L (21-27); ABG Oxygen Saturation 91 % (95-98); ABG PCO2 46 mmHg (35-45); ABG PH 7.37 pH Units (7.32-7.45); ABG PO2 63 mmHg (85-104); ABG TCO2 28 mEq/L (20-26)
[2021-02-16] MEDS: Colchicine 0.6 MG TABLET PO SCH (12:03)
[2021-02-16] MEDS ORDERED: allopurinoL 100 MG TABLET PO SCH (13:15)
[2021-02-16] MEDS ORDERED: Vancomycin 1,500 MG/265 ML IV.SOLN IVPB ONE (13:30)
[2021-02-16] MEDS: Acetaminophen 325 MG TABLET PO PRN (13:39)
[2021-02-16] MEDS: hydrALAZINE 25 MG TABLET PO SCH (20:03)
[2021-02-16] MEDS ORDERED: Mirtazapine 15 MG TABLET PO SCH (21:00)
[2021-02-16] MEDS ORDERED: *HR* LORazepam 2 MG/ML VIAL IVP PRN (23:27)
[2021-02-17 01:41] LABS: Hemoglobin 9.2 g/dL (11.5-15.4); Mean Corpuscular HGB Conc 30.7 g/dL (31.6-35.5); Mean Corpuscular Hemoglobin 29.3 pg (28.0-33.3); Mean Corpuscular Volume 95.5 fL (83.0-100.0); Mean Platelet Volume 9.4 fL (9.4-12.4); Platelet Count 230 K/mcL (140-400); Red Blood Count 3.14 M/mcL (3.82-4.97); Red Cell Distribution Width 17.6 % (11.5-14.5); White Blood Count 12.9 K/mcL (4.3-11.1)
[2021-02-17 01:42] LABS: Basophils % 0.2 %; Hematocrit 30.8 % (35.3-44.9); Hemoglobin 9.2 g/dL (11.5-15.4); Immature Granulocytes % 0.6 % (0-4); Lymphocytes # 1.3 K/mcL (0.6-4.6); Lymphocytes % 10.3 %; Mean Corpuscular HGB Conc 29.9 g/dL (31.6-35.5); Mean Corpuscular Hemoglobin 28.6 pg (28.0-33.3); Mean Corpuscular Volume 95.7 fL (83.0-100.0); Mean Platelet Volume 9.3 fL (9.4-12.4); Monocytes # 0.6 K/mcL (0.0-1.3); Monocytes % 5.1 %; Neutrophils # 10.4 K/mcL (1.6-8.9); Platelet Count 219 K/mcL (140-400); Red Blood Count 3.22 M/mcL (3.82-4.97); Red Cell Distribution Width 17.7 % (11.5-14.5); Segmented Neutrophils % 83.8 %; White Blood Count 12.4 K/mcL (4.3-11.1)
[2021-02-17] MEDS: CLEAR EYES NATURAL TEARS 15 ML BOTTLE BOTH EYES SCH ×2 (01:44→21:49)
[2021-02-17 01:55] LABS: Calcium 8.6 mg/dL (8.6-10.3); Potassium 3.3 mEq/L (3.5-5.1)
[2021-02-17] MEDS ORDERED: 0.9 % Sodium Chloride 250 ML IVC PRN (06:54)
[2021-02-17] MEDS ORDERED: 0.9 % Sodium Chloride 1,000 ML PRIME SCH (07:00)
[2021-02-17] MEDS: Colchicine 0.6 MG TABLET PO SCH (08:40)
[2021-02-17] MEDS: MethylPREDNISolone 40 MG/ML VIAL IVP SCH ×2 (08:40→15:12)
[2021-02-17] MEDS: Renal Vitamin 1 CAP CAPSULE PO SCH (08:40)
[2021-02-17 11:09] LABS: Hepatitis B Surface Antigen Nonreactive (Nonreactive)
[2021-02-17 11:38] LABS: Hepatitis C Virus Antibody Nonreactive (Nonreactive)
[2021-02-17] MEDS: *HR* Heparin 10,000 UNIT/10 ML VIAL IV PRN (13:08)
[2021-02-17] MEDS: carvediloL 6.25 MG TABLET PO SCH ×2 (15:04→15:08)
[2021-02-17] MEDS: Furosemide 40 MG TABLET PO SCH (15:08)
[2021-02-17] MEDS: NIFEdipine XL (24 HR) 30 MG TAB.ER.24 PO SCH (15:08)
[2021-02-17] MEDS: allopurinoL 100 MG TABLET PO SCH (15:12)
[2021-02-17] MEDS ORDERED: Vancomycin 1,250 MG/262.5 ML IV.SOLN IVPB ONE (16:00)
[2021-02-17] MEDS: hydrALAZINE 25 MG TABLET PO SCH (21:48)
[2021-02-17] MEDS ORDERED: Dextrose Gel 15 GM/37.5 ML TUBE PO PRN ×2 (23:08)
[2021-02-17] MEDS ORDERED: D5% in Water 1,000 ML IVC PRN (23:08)
[2021-02-17] MEDS ORDERED: *HR* Dextrose 50 % in Water (Syg) 50 ML SYRINGE IVP PRN (23:08)
[2021-02-18] MEDS: Insulin LISPRO 300 UNITS/3 ML VIAL SUBQ SCH ×5 (00:22→20:32)
[2021-02-18 02:36] LABS: Basophils % 0.1 %; Eosinophils % 0.1 %; Hematocrit 29.7 % (35.3-44.9); Hemoglobin 9.1 g/dL (11.5-15.4); Immature Granulocytes % 0.7 % (0-4); Lymphocytes # 1.5 K/mcL (0.6-4.6); Lymphocytes % 10.9 %; Mean Corpuscular HGB Conc 30.6 g/dL (31.6-35.5); Mean Corpuscular Hemoglobin 29.3 pg (28.0-33.3); Mean Corpuscular Volume 95.5 fL (83.0-100.0); Mean Platelet Volume 9.7 fL (9.4-12.4); Monocytes % 7.4 %; Neutrophils # 10.8 K/mcL (1.6-8.9); Platelet Count 216 K/mcL (140-400); Red Blood Count 3.11 M/mcL (3.82-4.97); Red Cell Distribution Width 17.6 % (11.5-14.5); Segmented Neutrophils % 80.8 %; White Blood Count 13.4 K/mcL (4.3-11.1)
[2021-02-18 02:54] LABS: Potassium 3.5 mEq/L (3.5-5.1)
[2021-02-18] MEDS: NIFEdipine XL (24 HR) 30 MG TAB.ER.24 PO SCH (09:39)
[2021-02-18] MEDS: Renal Vitamin 1 CAP CAPSULE PO SCH (09:40)
[2021-02-18] MEDS: carvediloL 6.25 MG TABLET PO SCH ×2 (09:40→16:54)
[2021-02-18] MEDS: Furosemide 40 MG TABLET PO SCH (09:40)
[2021-02-18] MEDS: hydrALAZINE 25 MG TABLET PO SCH (20:30)
[2021-02-18] MEDS: CLEAR EYES NATURAL TEARS 15 ML BOTTLE BOTH EYES SCH (20:30)
[2021-02-19] MEDS ORDERED: 0.9 % Sodium Chloride 250 ML IVC PRN ×2 (07:09→07:22)
[2021-02-19 07:27] LABS: Basophils % 0.2 %; Eosinophils # 0.3 K/mcL (0.0-0.6); Eosinophils % 2.1 %; Hematocrit 30.6 % (35.3-44.9); Hemoglobin 8.9 g/dL (11.5-15.4); Immature Granulocytes % 0.9 % (0-4); Lymphocytes # 1.7 K/mcL (0.6-4.6); Lymphocytes % 12.9 %; Mean Corpuscular HGB Conc 29.1 g/dL (31.6-35.5); Mean Corpuscular Hemoglobin 28.4 pg (28.0-33.3); Mean Corpuscular Volume 97.8 fL (83.0-100.0); Mean Platelet Volume 9.3 fL (9.4-12.4); Monocytes # 1.1 K/mcL (0.0-1.3); Monocytes % 8.6 %; Neutrophils # 9.6 K/mcL (1.6-8.9); Nucleated Red Blood Cells 0.2 /100 WBC (0); Platelet Count 184 K/mcL (140-400); Red Blood Count 3.13 M/mcL (3.82-4.97); Red Cell Distribution Width 17.7 % (11.5-14.5); Segmented Neutrophils % 75.3 %; White Blood Count 12.8 K/mcL (4.3-11.1)
[2021-02-19 08:13] LABS: Calcium 7.9 mg/dL (8.6-10.3); Potassium 3.7 mEq/L (3.5-5.1)
[2021-02-19] MEDS: Insulin LISPRO 300 UNITS/3 ML VIAL SUBQ SCH ×4 (08:54→21:21)
[2021-02-19] MEDS: carvediloL 6.25 MG TABLET PO SCH ×2 (08:54→16:55)
[2021-02-19] MEDS: *HR* Heparin 10,000 UNIT/10 ML VIAL IV PRN (13:05)
[2021-02-19] MEDS: levoFLOXacin 250 MG TABLET PO SCH (14:05)
[2021-02-19] MEDS: Renal Vitamin 1 CAP CAPSULE PO SCH (14:06)
[2021-02-19] MEDS: Furosemide 40 MG TABLET PO SCH (14:06)
[2021-02-19] MEDS: NIFEdipine XL (24 HR) 30 MG TAB.ER.24 PO SCH (14:06)
[2021-02-19] MEDS: allopurinoL 100 MG TABLET PO SCH (16:55)
[2021-02-19] MEDS: CLEAR EYES NATURAL TEARS 15 ML BOTTLE BOTH EYES SCH (21:19)
[2021-02-19] MEDS: hydrALAZINE 25 MG TABLET PO SCH (21:19)
[2021-02-20 06:18] LABS: Basophils % 0.3 %; Eosinophils # 0.2 K/mcL (0.0-0.6); Eosinophils % 1.8 %; Hematocrit 32.3 % (35.3-44.9); Hemoglobin 9.6 g/dL (11.5-15.4); Immature Granulocytes % 0.6 % (0-4); Lymphocytes # 1.2 K/mcL (0.6-4.6); Lymphocytes % 11.6 %; Mean Corpuscular HGB Conc 29.7 g/dL (31.6-35.5); Mean Corpuscular Hemoglobin 29.4 pg (28.0-33.3); Mean Corpuscular Volume 99.1 fL (83.0-100.0); Mean Platelet Volume 9.6 fL (9.4-12.4); Monocytes # 0.9 K/mcL (0.0-1.3); Monocytes % 8.8 %; Neutrophils # 7.8 K/mcL (1.6-8.9); Platelet Count 152 K/mcL (140-400); Red Blood Count 3.26 M/mcL (3.82-4.97); Red Cell Distribution Width 17.9 % (11.5-14.5); Segmented Neutrophils % 76.9 %; White Blood Count 10.1 K/mcL (4.3-11.1)
[2021-02-20 06:38] LABS: Potassium 3.8 mEq/L (3.5-5.1)
[2021-02-20] MEDS: carvediloL 6.25 MG TABLET PO SCH ×2 (08:38→16:50)
[2021-02-20] MEDS: NIFEdipine XL (24 HR) 30 MG TAB.ER.24 PO SCH (08:38)
[2021-02-20] MEDS: Furosemide 40 MG TABLET PO SCH (08:38)
[2021-02-20] MEDS: Insulin LISPRO 300 UNITS/3 ML VIAL SUBQ SCH ×4 (08:38→22:52)
[2021-02-20] MEDS: levoFLOXacin 250 MG TABLET PO SCH (08:38)
[2021-02-20] MEDS: Renal Vitamin 1 CAP CAPSULE PO SCH (08:38)
[2021-02-20] MEDS: hydrALAZINE 25 MG TABLET PO SCH (20:21)
[2021-02-20] MEDS: CLEAR EYES NATURAL TEARS 15 ML BOTTLE BOTH EYES SCH (20:22)
[2021-02-21] MEDS: Insulin LISPRO 300 UNITS/3 ML VIAL SUBQ SCH ×4 (07:37→21:52)
[2021-02-21] MEDS ORDERED: *HR* Heparin 10,000 UNIT/10 ML VIAL IV PRN (08:39)
[2021-02-21] MEDS ORDERED: 0.9 % Sodium Chloride 250 ML IVC PRN (08:39)
[2021-02-21] MEDS ORDERED: 0.9 % Sodium Chloride 1,000 ML PRIME SCH (08:45)
[2021-02-21] MEDS ORDERED: Ergocalciferol (VIT D2) 50,000 UNIT (1.25MG) CAP PO SCH (09:00)
[2021-02-21] MEDS: carvediloL 6.25 MG TABLET PO SCH ×2 (12:09→17:55)
[2021-02-21] MEDS: Renal Vitamin 1 CAP CAPSULE PO SCH (13:46)
[2021-02-21] MEDS: NIFEdipine XL (24 HR) 30 MG TAB.ER.24 PO SCH (13:46)
[2021-02-21] MEDS: levoFLOXacin 250 MG TABLET PO SCH (13:47)
[2021-02-21] MEDS: Furosemide 40 MG TABLET PO SCH (13:47)
[2021-02-21] MEDS: allopurinoL 100 MG TABLET PO SCH (17:55)
[2021-02-21] MEDS: Acetaminophen 325 MG TABLET PO PRN (17:57)
[2021-02-21] MEDS: hydrALAZINE 25 MG TABLET PO SCH (21:32)
[2021-02-21] MEDS: CLEAR EYES NATURAL TEARS 15 ML BOTTLE BOTH EYES SCH (21:59)
[2021-02-22] MEDS: Insulin LISPRO 300 UNITS/3 ML VIAL SUBQ SCH ×4 (07:18→21:35)
[2021-02-22] MEDS: carvediloL 6.25 MG TABLET PO SCH ×2 (08:12→16:23)
[2021-02-22] MEDS: Furosemide 40 MG TABLET PO SCH (08:12)
[2021-02-22] MEDS: NIFEdipine XL (24 HR) 30 MG TAB.ER.24 PO SCH (08:12)
[2021-02-22] MEDS: levoFLOXacin 250 MG TABLET PO SCH (08:12)
[2021-02-22] MEDS: Renal Vitamin 1 CAP CAPSULE PO SCH (08:12)
[2021-02-22 09:45] LABS: Basophils % 0.4 %; Eosinophils # 0.1 K/mcL (0.0-0.6); Eosinophils % 1.5 %; Hematocrit 31.4 % (35.3-44.9); Hemoglobin 9.4 g/dL (11.5-15.4); Immature Granulocytes % 0.4 % (0-4); Lymphocytes # 1.2 K/mcL (0.6-4.6); Lymphocytes % 14.5 %; Mean Corpuscular HGB Conc 29.9 g/dL (31.6-35.5); Mean Corpuscular Hemoglobin 29.7 pg (28.0-33.3); Mean Corpuscular Volume 99.1 fL (83.0-100.0); Mean Platelet Volume 9.6 fL (9.4-12.4); Monocytes # 0.6 K/mcL (0.0-1.3); Monocytes % 7.6 %; Neutrophils # 6.1 K/mcL (1.6-8.9); Platelet Count 118 K/mcL (140-400); Red Blood Count 3.17 M/mcL (3.82-4.97); Red Cell Distribution Width 17.2 % (11.5-14.5); Segmented Neutrophils % 75.6 %; White Blood Count 8.1 K/mcL (4.3-11.1)
[2021-02-22 10:05] LABS: Potassium 4.1 mEq/L (3.5-5.1)
[2021-02-22] MEDS: hydrALAZINE 25 MG TABLET PO SCH (21:37)
[2021-02-22] MEDS: CLEAR EYES NATURAL TEARS 15 ML BOTTLE BOTH EYES SCH (21:38)
[2021-02-23] MEDS: Insulin LISPRO 300 UNITS/3 ML VIAL SUBQ SCH ×4 (07:43→20:45)
[2021-02-23] MEDS: Furosemide 40 MG TABLET PO SCH (08:24)
[2021-02-23] MEDS: Renal Vitamin 1 CAP CAPSULE PO SCH (08:24)
[2021-02-23] MEDS: NIFEdipine XL (24 HR) 30 MG TAB.ER.24 PO SCH (08:24)
[2021-02-23] MEDS: levoFLOXacin 250 MG TABLET PO SCH (08:24)
[2021-02-23] MEDS: carvediloL 6.25 MG TABLET PO SCH ×2 (08:25→17:10)
[2021-02-23] MEDS: hydrALAZINE 25 MG TABLET PO SCH (20:45)
[2021-02-23] MEDS: CLEAR EYES NATURAL TEARS 15 ML BOTTLE BOTH EYES SCH (20:45)
[2021-02-24] MEDS: Renal Vitamin 1 CAP CAPSULE PO SCH (08:02)
[2021-02-24] MEDS: Insulin LISPRO 300 UNITS/3 ML VIAL SUBQ SCH ×4 (08:02→21:10)
[2021-02-24] MEDS ORDERED: *HR* Heparin 10,000 UNIT/10 ML VIAL IV PRN (08:10)
[2021-02-24] MEDS ORDERED: 0.9 % Sodium Chloride 250 ML IVC PRN (08:10)
[2021-02-24 10:49] LABS: Basophils % 0.4 %; Eosinophils # 0.2 K/mcL (0.0-0.6); Eosinophils % 2.3 %; Hematocrit 31.1 % (35.3-44.9); Hemoglobin 9.2 g/dL (11.5-15.4); Immature Granulocytes % 0.3 % (0-4); Lymphocytes # 1.2 K/mcL (0.6-4.6); Lymphocytes % 17.2 %; Mean Corpuscular HGB Conc 29.6 g/dL (31.6-35.5); Mean Corpuscular Hemoglobin 29.2 pg (28.0-33.3); Mean Corpuscular Volume 98.7 fL (83.0-100.0); Mean Platelet Volume 9.7 fL (9.4-12.4); Monocytes # 0.7 K/mcL (0.0-1.3); Monocytes % 9.9 %; Neutrophils # 4.8 K/mcL (1.6-8.9); Platelet Count 116 K/mcL (140-400); Red Blood Count 3.15 M/mcL (3.82-4.97); Red Cell Distribution Width 16.9 % (11.5-14.5); Segmented Neutrophils % 69.9 %; White Blood Count 6.9 K/mcL (4.3-11.1)
[2021-02-24 11:10] LABS: Calcium 7.4 mg/dL (8.6-10.3); Potassium 3.7 mEq/L (3.5-5.1)
[2021-02-24] MEDS: carvediloL 6.25 MG TABLET PO SCH ×2 (11:42→17:24)
[2021-02-24] MEDS: NIFEdipine XL (24 HR) 30 MG TAB.ER.24 PO SCH (13:15)
[2021-02-24] MEDS: Furosemide 40 MG TABLET PO SCH (13:28)
[2021-02-24] MEDS: allopurinoL 100 MG TABLET PO SCH (17:26)
[2021-02-24] MEDS: CLEAR EYES NATURAL TEARS 15 ML BOTTLE BOTH EYES SCH (21:10)
[2021-02-24] MEDS: hydrALAZINE 25 MG TABLET PO SCH (21:11)
[2021-02-25] MEDS: Insulin LISPRO 300 UNITS/3 ML VIAL SUBQ SCH ×4 (07:42→20:13)
[2021-02-25] MEDS: Renal Vitamin 1 CAP CAPSULE PO SCH (08:22)
[2021-02-25] MEDS: Furosemide 40 MG TABLET PO SCH (08:22)
[2021-02-25] MEDS: carvediloL 6.25 MG TABLET PO SCH ×2 (08:22→17:02)
[2021-02-25] MEDS: NIFEdipine XL (24 HR) 30 MG TAB.ER.24 PO SCH (08:23)
[2021-02-25] MEDS: hydrALAZINE 25 MG TABLET PO SCH (20:16)
[2021-02-25] MEDS: CLEAR EYES NATURAL TEARS 15 ML BOTTLE BOTH EYES SCH (20:16)
[2021-02-26] MEDS: Insulin LISPRO 300 UNITS/3 ML VIAL SUBQ SCH ×4 (09:48→20:59)
[2021-02-26] MEDS: Renal Vitamin 1 CAP CAPSULE PO SCH (09:49)
[2021-02-26] MEDS: carvediloL 6.25 MG TABLET PO SCH ×2 (09:49→16:03)
[2021-02-26] MEDS: NIFEdipine XL (24 HR) 30 MG TAB.ER.24 PO SCH (09:49)
[2021-02-26] MEDS: Furosemide 40 MG TABLET PO SCH (09:50)
[2021-02-26] MEDS: allopurinoL 100 MG TABLET PO SCH (15:57)
[2021-02-26] MEDS: CLEAR EYES NATURAL TEARS 15 ML BOTTLE BOTH EYES SCH (20:59)
[2021-02-26] MEDS: hydrALAZINE 25 MG TABLET PO SCH (21:00)
[2021-02-27] MEDS ORDERED: 0.9 % Sodium Chloride 250 ML IVC PRN ×2 (07:43→09:53)
[2021-02-27] MEDS ORDERED: *HR* Heparin 10,000 UNIT/10 ML VIAL IV PRN ×2 (07:43→09:53)
[2021-02-27] MEDS: Insulin LISPRO 300 UNITS/3 ML VIAL SUBQ SCH ×3 (07:57→17:16)
[2021-02-27] MEDS: Renal Vitamin 1 CAP CAPSULE PO SCH (08:47)
[2021-02-27] MEDS: Furosemide 40 MG TABLET PO SCH (08:47)
[2021-02-27] MEDS: carvediloL 6.25 MG TABLET PO SCH ×2 (08:47→17:16)
[2021-02-27] MEDS: NIFEdipine XL (24 HR) 30 MG TAB.ER.24 PO SCH (08:47)
[2021-02-27 09:29] LABS: Calcium 8.5 mg/dL (8.6-10.3); Potassium 4.2 mEq/L (3.5-5.1)
[2021-02-27 10:08] VITALS: TEMP 97.9
[2021-02-27 15:18] VITALS: BP 118/58; PULSE 76; O2SAT 99
== END 2021-02-27 19:00 | DRG 193 ==
LOC: INTOOBSV 16:30 → 2NENU 16:30 → SUATTDRO 16:30
PROVIDERS: ADMIT Family Medicine; ATTEND Internal Medicine

== ENCOUNTER 2021-03-23 21:07 | Observation (INO) ==
[2021-03-23 22:20] LABS: Basophils # 0.1 K/mcL (0.0-0.2); Basophils % 0.8 %; Eosinophils # 0.4 K/mcL (0.0-0.6); Eosinophils % 3.9 %; Hematocrit 34.3 % (35.3-44.9); Hemoglobin 10.2 g/dL (11.5-15.4); Immature Granulocytes % 1.2 % (0-4); Lymphocytes # 3.1 K/mcL (0.6-4.6); Lymphocytes % 32.3 %; Mean Corpuscular HGB Conc 29.7 g/dL (31.6-35.5); Mean Corpuscular Volume 97.4 fL (83.0-100.0); Mean Platelet Volume 9.8 fL (9.4-12.4); Monocytes # 0.7 K/mcL (0.0-1.3); Monocytes % 7.7 %; Neutrophils # 5.2 K/mcL (1.6-8.9); Platelet Count 261 K/mcL (140-400); Red Blood Count 3.52 M/mcL (3.82-4.97); Red Cell Distribution Width 17.6 % (11.5-14.5); Segmented Neutrophils % 54.1 %; White Blood Count 9.5 K/mcL (4.3-11.1)
[2021-03-23 22:35] LABS: INR 1.1
[2021-03-23 22:38] LABS: Activated Partial Thrombo Time 31.1 Seconds (26.0-36.0)
[2021-03-23 22:41] LABS: Albumin 2.7 g/dL (3.5-5.7); Albumin/Globulin Ratio 0.9 (1.1-2.2); Bilirubin,Total 0.3 mg/dL (0.3-1.0); Calcium 8.1 mg/dL (8.6-10.3); Potassium 4.4 mEq/L (3.5-5.1); Total Protein 5.7 g/dL (6.4-8.9)
[2021-03-23] MEDS ORDERED: hydrALAZINE 25 MG TABLET PO ONE (23:56)
[2021-03-24] MEDS ORDERED: carvediloL 6.25 MG TABLET PO STA (02:35)
[2021-03-24] MEDS ORDERED: NIFEdipine XL (24 HR) 30 MG TAB.ER.24 PO STA (07:32)
[2021-03-24] MEDS ORDERED: Albuterol 2.5 MG/3 ML NEBULIZER IH PRN (11:43)
[2021-03-24] MEDS ORDERED: Acetaminophen 325 MG TABLET PO PRN ×2 (11:43→13:29)
[2021-03-24 13:05] VITALS: PULSE 80; O2SAT 91
[2021-03-24] MEDS ORDERED: Naloxone 0.4 MG/ML INJ IVP PRN (13:26)
[2021-03-24] MEDS ORDERED: D5% in Water 1,000 ML IVC PRN (13:26)
[2021-03-24] MEDS ORDERED: Ondansetron 4 MG/2 ML VIAL IVP PRN (13:26)
[2021-03-24] MEDS ORDERED: *HR* Dextrose 50 % in Water (Syg) 50 ML SYRINGE IVP PRN (13:26)
[2021-03-24] MEDS ORDERED: Dextrose Gel 15 GM/37.5 ML TUBE PO PRN ×2 (13:26)
[2021-03-24] MEDS ORDERED: *HR* Heparin 10,000 UNIT/10 ML VIAL IV PRN ×2 (14:40)
[2021-03-24] MEDS ORDERED: 0.9 % Sodium Chloride 250 ML IVC PRN (14:40)
[2021-03-24] MEDS ORDERED: 0.9 % Sodium Chloride 1,000 ML PRIME SCH (14:45)
[2021-03-24] MEDS ORDERED: *HR* FentaNYL (PF) 100 MCG/2 ML VIAL IVP ONE (14:47)
[2021-03-24] MEDS ORDERED: Heparin 1,000 UNITS/500 mL 500 ML ONE (15:14)
[2021-03-24] MEDS ORDERED: Clindamycin 600 MG/50 ML 600 MG/50 ML IV.SOLN IVPB ONE (15:22)
[2021-03-24] MEDS ORDERED: *HR* Heparin 5,000 UNIT/ML VIAL ONE (15:29)
[2021-03-24] MEDS ORDERED: Insulin LISPRO 300 UNITS/3 ML VIAL SUBQ SCH (16:30)
[2021-03-24] MEDS ORDERED: *HR* Heparin 5,000 UNIT/ML VIAL SQ SCH (18:00)
[2021-03-24] MEDS: carvediloL 6.25 MG TABLET PO SCH ×2 (18:05→20:44)
[2021-03-24 18:14] LABS: Hepatitis B Surface Antibody < 3.10 mIU/mL
[2021-03-24 18:25] LABS: Hepatitis B Surface Antigen Nonreactive (Nonreactive)
[2021-03-24 19:23] VITALS: TEMP 97.9
[2021-03-24 19:37] VITALS: BP 159/89
[2021-03-24] MEDS ORDERED: hydrALAZINE 25 MG TABLET PO SCH (21:00)
[2021-03-24] MEDS ORDERED: Famotidine 20 MG TABLET PO SCH ×2 (21:00)
[2021-03-24] MEDS ORDERED: Mirtazapine 15 MG TABLET PO SCH (21:00)
[2021-03-25] MEDS ORDERED: NIFEdipine XL (24 HR) 30 MG TAB.ER.24 PO SCH (09:00)
[2021-03-25] MEDS ORDERED: Furosemide 20 MG TABLET PO SCH (09:00)
== END 2021-03-24 20:58 ==
LOC: 2ANU 21:07 → EMEROOARM 21:07 → 2ANU 03-24 12:49
PROVIDERS: ADMIT Internal Medicine; ATTEND Internal Medicine

== ENCOUNTER 2021-05-02 10:43 | Inpatient (IN) ==
[2021-05-02 11:47] LABS: Basophils # 0.1 K/mcL (0.0-0.2); Basophils % 0.6 %; Eosinophils # 0.5 K/mcL (0.0-0.6); Eosinophils % 4.5 %; Hematocrit 38.9 % (35.3-44.9); Hemoglobin 11.6 g/dL (11.5-15.4); Immature Granulocytes % 0.8 % (0-4); Lymphocytes # 2.1 K/mcL (0.6-4.6); Lymphocytes % 20.4 %; Mean Corpuscular HGB Conc 29.8 g/dL (31.6-35.5); Mean Corpuscular Volume 107.5 fL (83.0-100.0); Mean Platelet Volume 9.8 fL (9.4-12.4); Monocytes # 0.6 K/mcL (0.0-1.3); Monocytes % 6.1 %; Neutrophils # 7.1 K/mcL (1.6-8.9); Platelet Count 196 K/mcL (140-400); Red Blood Count 3.62 M/mcL (3.82-4.97); Red Cell Distribution Width 17.9 % (11.5-14.5); Segmented Neutrophils % 67.6 %; White Blood Count 10.5 K/mcL (4.3-11.1)
[2021-05-02 12:08] LABS: Alanine Aminotransferase 5 Units/L (7-52); Albumin 2.4 g/dL (3.5-5.7); Albumin/Globulin Ratio 0.8 (1.1-2.2); Alkaline Phosphatase 57 Units/L (34-104); Aspartate Amino Transferase 13 Units/L (13-39); BUN/Creatinine Ratio 16 (6-26); Bilirubin,Total 0.4 mg/dL (0.3-1.0); Blood Urea Nitrogen 46 mg/dL (8-23); Calcium 7.8 mg/dL (8.6-10.3); Carbon Dioxide 27 mEq/L (23-29); Chloride 107 mEq/L (98-107); Glucose 164 mg/dL (70-105); Osmolality,Calculated 306 (280-300); Potassium 4.9 mEq/L (3.5-5.1); Sodium 140 mEq/L (136-145); Total Protein 5.4 g/dL (6.4-8.9); Troponin I < 0.03 ng/mL (< 0.04); eGFR For African Americans 19 (> 60); eGFR For Non-African Americans 16 (> 60)
[2021-05-02 12:17] LABS: Adenovirus Not Detected (Not Detect); Coronavirus 229E Not Detected (Not Detect); Coronavirus HKU1 Not Detected (Not Detect); Coronavirus NL63 Not Detected (Not Detect); Coronavirus OC43 Not Detected (Not Detect); Human Metapneumovirus Not Detected (Not Detect); Human Rhinovirus/Enterovirus Not Detected (Not Detect); SARS-CoV-2 Not Detected (Not Detect)
[2021-05-02 12:18] LABS: Bordetella Pertussis Not Detected (Not Detect); Chlamydophila pneumoniae Not Detected (Not Detect); Influenza A Subtype 2009 H1 Not Detected (Not Detect); Influenza B Not Detected (Not Detect); Mycoplasma pneumoniae Not Detected (Not Detect); Parainfluenza Virus 1 Not Detected (Not Detect); Parainfluenza Virus 2 Not Detected (Not Detect); Parainfluenza Virus 3 Not Detected (Not Detect); Parainfluenza Virus 4 Not Detected (Not Detect); Respiratory Syncytial Virus Not Detected (Not Detect)
[2021-05-02] MEDS ORDERED: Isovue-370 500 ML BOTTLE IVP ONE (13:10)
[2021-05-02] MEDS ORDERED: *HR* Heparin 5,000 UNIT/ML VIAL IVP ONE (14:18)
[2021-05-02] MEDS ORDERED: *HR* Heparin 5,000 UNIT/ML VIAL IVP PRN ×2 (14:18)
[2021-05-02] MEDS ORDERED: Ondansetron 4 MG/2 ML VIAL IVP PRN (14:39)
[2021-05-02] MEDS ORDERED: Naloxone 0.4 MG/ML INJ IVP PRN (14:39)
[2021-05-02] MEDS: Heparin 25,000UNIT/250ML 1/2NS 25,000 UNIT/250 ML IV.SOLN IVC SCH (14:44)
[2021-05-02] MEDS ORDERED: Ergocalciferol (VIT D2) 50,000 UNIT (1.25MG) CAP PO SCH (14:45)
[2021-05-02] MEDS ORDERED: Furosemide 20 MG/2 ML VIAL IVP SCH (15:00)
[2021-05-02 15:09] LABS: INR 1.1; Prothrombin Time 12.8 Seconds (9.4-12.1)
[2021-05-02 15:12] LABS: Activated Partial Thrombo Time 31.1 Seconds (26.0-36.0); Heparin anti-factor XA UFH < 0.04 IU/mL (0.30-0.70)
[2021-05-02] MEDS ORDERED: Perflutren Lipid Microsphere 1.3 ML in 0.9 % Sodium Chloride 8.7 ML IVP PRN (16:21)
[2021-05-02] MEDS: carvediloL 6.25 MG TABLET PO SCH (17:33)
[2021-05-02] MEDS: Calcium Acetate 667 MG CAPSULE PO SCH (17:34)
[2021-05-02] MEDS: Furosemide 20 MG/2 ML VIAL IVP SCH (17:34)
[2021-05-02] MEDS: Mirtazapine 15 MG TABLET PO SCH (20:19)
[2021-05-02] MEDS: hydrALAZINE 25 MG TABLET PO SCH (20:19)
[2021-05-03 06:42] LABS: Eosinophils % 7.6 %; Hemoglobin 10.1 g/dL (11.5-15.4)
[2021-05-03 06:43] LABS: Basophils # 0.1 K/mcL (0.0-0.2); Basophils % 1.1 %; Eosinophils # 0.6 K/mcL (0.0-0.6); Hematocrit 34.7 % (35.3-44.9); Immature Granulocytes % 0.4 % (0-4); Lymphocytes # 2.7 K/mcL (0.6-4.6); Mean Corpuscular HGB Conc 29.1 g/dL (31.6-35.5); Mean Corpuscular Hemoglobin 31.6 pg (28.0-33.3); Mean Corpuscular Volume 108.4 fL (83.0-100.0); Mean Platelet Volume 9.6 fL (9.4-12.4); Monocytes # 0.6 K/mcL (0.0-1.3); Monocytes % 7.9 %; Platelet Count 181 K/mcL (140-400); Red Cell Distribution Width 17.8 % (11.5-14.5); White Blood Count 8.1 K/mcL (4.3-11.1)
[2021-05-03 06:44] LABS: Neutrophils # 4.1 K/mcL (1.6-8.9)
[2021-05-03 06:59] LABS: Calcium 7.8 mg/dL (8.6-10.3); Magnesium 1.3 mg/dL (1.6-2.6); Phosphorous 5.2 mg/dL (2.7-4.5); Potassium 5.1 mEq/L (3.5-5.1)
[2021-05-03 08:06] LABS: Platelet Estimate Normal (Normal)
[2021-05-03 08:07] LABS: Basophilic Stippling 1+ (Not Present)
[2021-05-03 08:08] LABS: Anisocytosis 1+ (Not Present); Poikilocytosis 1+ (Not Present)
[2021-05-03] MEDS ORDERED: Furosemide 20 MG TABLET PO SCH (09:00)
[2021-05-03] MEDS: carvediloL 6.25 MG TABLET PO SCH ×2 (09:03→17:40)
[2021-05-03] MEDS: NIFEdipine XL (24 HR) 30 MG TAB.ER.24 PO SCH (09:04)
[2021-05-03] MEDS: Calcium Acetate 667 MG CAPSULE PO SCH ×4 (09:04→20:46)
[2021-05-03] MEDS: Furosemide 20 MG/2 ML VIAL IVP SCH (09:05)
[2021-05-03] MEDS ORDERED: Albuterol 2.5 MG/3 ML NEBULIZER IH PRN (11:58)
[2021-05-03] MEDS ORDERED: Magnesium Oxide 400 MG TABLET PO SCH (12:00)
[2021-05-03] MEDS: Azithromycin 500 MG in D5% in Water 250 ML IVPB SCH (12:54)
[2021-05-03] MEDS: Ipratropium/Albuterol Neb 3 ML IH SCH ×2 (15:21→20:55)
[2021-05-03] MEDS: Mirtazapine 15 MG TABLET PO SCH (20:46)
[2021-05-03] MEDS: hydrALAZINE 25 MG TABLET PO SCH (20:46)
[2021-05-03] MEDS: Heparin 25,000UNIT/250ML 1/2NS 25,000 UNIT/250 ML IV.SOLN IVC SCH (20:47)
[2021-05-04 02:36] LABS: Basophils # 0.1 K/mcL (0.0-0.2); Basophils % 0.7 %; Eosinophils # 0.5 K/mcL (0.0-0.6); Eosinophils % 6.1 %; Hematocrit 32.5 % (35.3-44.9); Hemoglobin 9.6 g/dL (11.5-15.4); Immature Granulocytes % 0.2 % (0-4); Lymphocytes # 3.1 K/mcL (0.6-4.6); Lymphocytes % 37.8 %; Mean Corpuscular HGB Conc 29.5 g/dL (31.6-35.5); Mean Corpuscular Hemoglobin 31.7 pg (28.0-33.3); Mean Corpuscular Volume 107.3 fL (83.0-100.0); Monocytes # 0.7 K/mcL (0.0-1.3); Monocytes % 8.6 %; Neutrophils # 3.8 K/mcL (1.6-8.9); Platelet Count 174 K/mcL (140-400); Red Blood Count 3.03 M/mcL (3.82-4.97); Red Cell Distribution Width 17.3 % (11.5-14.5); Segmented Neutrophils % 46.6 %; White Blood Count 8.2 K/mcL (4.3-11.1)
[2021-05-04 02:57] LABS: Calcium 7.7 mg/dL (8.6-10.3); Magnesium 1.3 mg/dL (1.6-2.6); Potassium 5.1 mEq/L (3.5-5.1)
[2021-05-04] MEDS: Ipratropium/Albuterol Neb 3 ML IH SCH ×4 (04:14→20:27)
[2021-05-04] MEDS ORDERED: 0.9 % Sodium Chloride 250 ML IVC PRN (07:41)
[2021-05-04] MEDS ORDERED: *HR* Heparin 10,000 UNIT/10 ML VIAL IV PRN (07:41)
[2021-05-04] MEDS ORDERED: 0.9 % Sodium Chloride 1,000 ML PRIME SCH (07:45)
[2021-05-04] MEDS: carvediloL 6.25 MG TABLET PO SCH ×2 (08:25→16:33)
[2021-05-04] MEDS: Calcium Acetate 667 MG CAPSULE PO SCH ×5 (08:27→21:05)
[2021-05-04] MEDS: NIFEdipine XL (24 HR) 30 MG TAB.ER.24 PO SCH (10:54)
[2021-05-04] MEDS: Furosemide 40 MG/4 ML VIAL IVP SCH (10:54)
[2021-05-04] MEDS: Azithromycin 500 MG in D5% in Water 250 ML IVPB SCH (14:30)
[2021-05-04] MEDS: Apixaban 5 MG TABLET PO SCH (21:06)
[2021-05-04] MEDS: hydrALAZINE 25 MG TABLET PO SCH (21:06)
[2021-05-04] MEDS: Mirtazapine 15 MG TABLET PO SCH (21:06)
[2021-05-05] MEDS: Ipratropium/Albuterol Neb 3 ML IH SCH ×4 (04:21→20:12)
[2021-05-05 06:36] LABS: Immature Granulocytes % 0.3 % (0-4); Red Blood Count 3.06 M/mcL (3.82-4.97); Red Cell Distribution Width 17.2 % (11.5-14.5)
[2021-05-05 06:38] LABS: Basophils # 0.1 K/mcL (0.0-0.2); Basophils % 0.9 %; Eosinophils # 0.4 K/mcL (0.0-0.6); Eosinophils % 6.6 %; Hematocrit 33.2 % (35.3-44.9); Hemoglobin 9.7 g/dL (11.5-15.4); Lymphocytes # 2.1 K/mcL (0.6-4.6); Lymphocytes % 33.4 %; Mean Corpuscular HGB Conc 29.2 g/dL (31.6-35.5); Mean Corpuscular Hemoglobin 31.7 pg (28.0-33.3); Mean Corpuscular Volume 108.5 fL (83.0-100.0); Mean Platelet Volume 9.9 fL (9.4-12.4); Monocytes # 0.6 K/mcL (0.0-1.3); Monocytes % 9.4 %; Neutrophils # 3.2 K/mcL (1.6-8.9); Platelet Count 144 K/mcL (140-400); Segmented Neutrophils % 49.4 %; White Blood Count 6.4 K/mcL (4.3-11.1)
[2021-05-05 07:03] LABS: Calcium 7.7 mg/dL (8.6-10.3); Potassium 4.3 mEq/L (3.5-5.1)
[2021-05-05 07:31] LABS: Hepatitis B Surface Antibody < 3.10 mIU/mL
[2021-05-05 07:43] LABS: Hepatitis B Surface Antigen Nonreactive (Nonreactive)
[2021-05-05] MEDS: Calcium Acetate 667 MG CAPSULE PO SCH ×3 (08:21→17:47)
[2021-05-05] MEDS: Furosemide 40 MG/4 ML VIAL IVP SCH (08:22)
[2021-05-05] MEDS: NIFEdipine XL (24 HR) 30 MG TAB.ER.24 PO SCH (08:22)
[2021-05-05] MEDS: Apixaban 5 MG TABLET PO SCH (08:22)
[2021-05-05] MEDS: carvediloL 6.25 MG TABLET PO SCH ×2 (08:22→17:46)
[2021-05-05] MEDS ORDERED: Azithromycin 250 MG TABLET PO SCH (09:00)
[2021-05-05 10:57] VITALS: PULSE 66; TEMP 97.9
[2021-05-05 15:24] VITALS: O2SAT 96
[2021-05-05 17:52] VITALS: BP 163/89
== END 2021-05-05 20:15 | disposition home health service (06) | DRG 175 ==
LOC: EMEROOARM 10:43 → 2ANU 10:43
PROVIDERS: ADMIT Student in an Organized Health Care Education/Training Program; ATTEND Student in an Organized Health Care Education/Training Program

== ENCOUNTER 2021-05-08 11:55 | Inpatient (IN) ==
[2021-05-08] MEDS ORDERED: 0.9 % Sodium Chloride 1,000 ML IVC ONE (12:34)
[2021-05-08 12:49] LABS: Basophils % 0.7 %; Hemoglobin 9.6 g/dL (11.5-15.4); Immature Granulocytes % 0.6 % (0-4)
[2021-05-08 12:51] LABS: Basophils # 0.1 K/mcL (0.0-0.2); Eosinophils # 0.2 K/mcL (0.0-0.6); Eosinophils % 2.2 %; Hematocrit 34.2 % (35.3-44.9); Lymphocytes # 1.9 K/mcL (0.6-4.6); Lymphocytes % 21.8 %; Mean Corpuscular HGB Conc 28.1 g/dL (31.6-35.5); Mean Corpuscular Hemoglobin 31.4 pg (28.0-33.3); Mean Corpuscular Volume 111.8 fL (83.0-100.0); Mean Platelet Volume 10.1 fL (9.4-12.4); Monocytes # 0.8 K/mcL (0.0-1.3); Monocytes % 9.3 %; Neutrophils # 5.8 K/mcL (1.6-8.9); Platelet Count 143 K/mcL (140-400); Red Blood Count 3.06 M/mcL (3.82-4.97); Segmented Neutrophils % 65.4 %; White Blood Count 8.9 K/mcL (4.3-11.1)
[2021-05-08 13:09] LABS: Activated Partial Thrombo Time 41.2 Seconds (26.0-36.0)
[2021-05-08 13:11] LABS: INR 2.1; Prothrombin Time 23.1 Seconds (9.4-12.1)
[2021-05-08 13:20] LABS: Troponin I 0.04 ng/mL (< 0.04)
[2021-05-08 13:34] LABS: Macrocytosis Present (Not Present); Platelet Estimate Normal (Normal)
[2021-05-08 13:53] LABS: Amorphous Sediment,Urine Few per hpf (None-Few); Bilirubin,Urine Negative (Negative); Blood,Urine Negative (Negative); Clarity,Urine Turbid (Clear); Color,Urine Light-Yellow (Yellow); Glucose,Urine (UA) 50 mg/dL (Normal); Hyaline Casts,Urine Few per lpf (None Seen); Ketones,Urine Negative (Negative); Leukocyte Esterase,Urine Negative (Negative); Mucus,Urine Few per lpf (None-Few); Nitrite,Urine Negative (Negative); PH,Urine 5.5 pH Units (5.0-8.0); Protein,Urine 200 mg/dL (Neg-Trace); RBC,Urine 0-3 per hpf (0-3); Renal Epithelial Cells,Urine Few per hpf (None-Few); Specific Gravity,Urine 1.016 (1.010-1.025); Squamous Epithelial Cell,Urine Few per hpf (None-Few); Transitional Epi Cells,Urine Few per hpf (None-Few); Urobilinogen,Urine Normal (Normal)
[2021-05-08 14:07] LABS: Albumin 2.6 g/dL (3.5-5.7); Albumin/Globulin Ratio 0.9 (1.1-2.2); Bilirubin,Indirect 0.3 mg/dL (0.0-1.0); Bilirubin,Total 0.3 mg/dL (0.3-1.0); Calcium 8.3 mg/dL (8.6-10.3); Potassium 5.6 mEq/L (3.5-5.1); Total Protein 5.6 g/dL (6.4-8.9)
[2021-05-08] MEDS ORDERED: Aspirin 325 MG TABLET PO ONE (15:25)
[2021-05-08] MEDS ORDERED: SODIUM ZIRCONIUM CYCLOSILICATE 5 GM POWD.PACK PO ONE (15:30)
[2021-05-08] MEDS ORDERED: [UNRECOGNIZED DRUG - OTHER] IV ONE (15:30)
[2021-05-08] MEDS ORDERED: Naloxone 0.4 MG/ML INJ IVP PRN (15:34)
[2021-05-08] MEDS ORDERED: Ondansetron 4 MG/2 ML VIAL IVP PRN (15:34)
[2021-05-08] MEDS ORDERED: Acetaminophen 325 MG TABLET PO PRN (15:34)
[2021-05-08] MEDS ORDERED: *HR* Dextrose 50 % in Water (Syg) 50 ML SYRINGE IVP PRN (16:46)
[2021-05-08] MEDS ORDERED: D5% in Water 1,000 ML IVC PRN (16:46)
[2021-05-08] MEDS ORDERED: Dextrose Gel 15 GM/37.5 ML TUBE PO PRN ×2 (16:46)
[2021-05-08] MEDS ORDERED: Insulin Human Regular 10 UNIT in 0.9 % Sodium Chloride 10 ML IV ONE (16:52)
[2021-05-08] MEDS ORDERED: *HR* Dextrose 50 % in Water (Syg) 50 ML SYRINGE IVP ONE (16:52)
[2021-05-08] MEDS ORDERED: *HR* Heparin 5,000 UNIT/ML VIAL IVP ONE (16:56)
[2021-05-08] MEDS ORDERED: *HR* Heparin 5,000 UNIT/ML VIAL IVP PRN ×2 (16:56)
[2021-05-08] MEDS ORDERED: Heparin 25,000UNIT/250ML 1/2NS 25,000 UNIT/250 ML IV.SOLN IVC SCH (17:00)
[2021-05-08 17:44] LABS: Hemoglobin 9.9 g/dL (11.5-15.4); Mean Corpuscular HGB Conc 27.5 g/dL (31.6-35.5); Mean Corpuscular Hemoglobin 31.2 pg (28.0-33.3); Mean Corpuscular Volume 113.6 fL (83.0-100.0); Mean Platelet Volume 10.3 fL (9.4-12.4); Platelet Count 129 K/mcL (140-400); Red Blood Count 3.17 M/mcL (3.82-4.97); Red Cell Distribution Width 15.8 % (11.5-14.5); White Blood Count 7.1 K/mcL (4.3-11.1)
[2021-05-08 18:04] LABS: Activated Partial Thrombo Time 41.2 Seconds (26.0-36.0)
[2021-05-08 18:18] LABS: Heparin anti-factor XA UFH > 2.00 IU/mL (0.30-0.70)
[2021-05-08] MEDS: Calcium Gluconate 1gm/50mL 1 GM/50 ML BAG IVPB SCH ×2 (18:25→19:50)
[2021-05-08] MEDS: Heparin 25,000UNIT/250ML 1/2NS 25,000 UNIT/250 ML IV.SOLN IVC SCH (18:25)
[2021-05-08] MEDS: Insulin LISPRO 300 UNITS/3 ML VIAL SUBQ SCH (20:25)
[2021-05-09] MEDS: Insulin LISPRO 300 UNITS/3 ML VIAL SUBQ SCH ×4 (01:26→18:09)
[2021-05-09 02:40] LABS: Immature Granulocytes % 0.6 % (0-4); Red Cell Distribution Width 15.8 % (11.5-14.5)
[2021-05-09 02:41] LABS: Basophils % 0.4 %; Eosinophils # 0.1 K/mcL (0.0-0.6); Eosinophils % 0.6 %; Hematocrit 34.2 % (35.3-44.9); Hemoglobin 9.7 g/dL (11.5-15.4); Lymphocytes # 1.6 K/mcL (0.6-4.6); Lymphocytes % 19.9 %; Mean Corpuscular HGB Conc 28.4 g/dL (31.6-35.5); Mean Corpuscular Hemoglobin 31.5 pg (28.0-33.3); Mean Platelet Volume 10.5 fL (9.4-12.4); Monocytes # 0.6 K/mcL (0.0-1.3); Monocytes % 6.8 %; Neutrophils # 5.8 K/mcL (1.6-8.9); Platelet Count 147 K/mcL (140-400); Red Blood Count 3.08 M/mcL (3.82-4.97); Segmented Neutrophils % 71.7 %; White Blood Count 8.1 K/mcL (4.3-11.1)
[2021-05-09 02:49] LABS: Heparin anti-factor XA UFH > 2.00 IU/mL (0.30-0.70)
[2021-05-09 02:53] LABS: Platelet Estimate Normal (Normal); Reactive Lymphocytes Present (Not Present)
[2021-05-09 02:59] LABS: Calcium 8.6 mg/dL (8.6-10.3); Magnesium 1.8 mg/dL (1.6-2.6); Potassium 5.8 mEq/L (3.5-5.1)
[2021-05-09 03:00] LABS: Calcium 8.8 mg/dL (8.6-10.3); Potassium 5.8 mEq/L (3.5-5.1)
[2021-05-09 03:27] LABS: Activated Partial Thrombo Time 265.1 Seconds (26.0-36.0)
[2021-05-09 03:43] LABS: Estimated Average Glucose 94 mg/dl; Hemoglobin A1C 4.9 %
[2021-05-09] MEDS ORDERED: Ipratropium/Albuterol Neb 3 ML IH PRN (07:56)
[2021-05-09] MEDS ORDERED: levoFLOXacin 750 MG/150 ML 750 MG/150 ML BAG IVPB ONE (08:00)
[2021-05-09] MEDS ORDERED: *HR* Heparin 10,000 UNIT/10 ML VIAL IV PRN (08:39)
[2021-05-09] MEDS ORDERED: 0.9 % Sodium Chloride 250 ML IVC PRN (08:39)
[2021-05-09] MEDS ORDERED: 0.9 % Sodium Chloride 1,000 ML PRIME SCH (08:45)
[2021-05-09 09:27] LABS: Acinetobacter baumannii by PCR Not Detected (Not Detect); Candida albicans by PCR Not Detected (Not Detect); Candida glabrata by PCR Not Detected (Not Detect); Candida krusei by PCR Not Detected (Not Detect); Candida parapsilosis by PCR Not Detected (Not Detect); Candida tropicalis by PCR Not Detected (Not Detect); Enterobacter cloacae Cmplx PCR Not Detected (Not Detect); Enterobacteriaceae by PCR Not Detected (Not Detect); Enterococcus by PCR Not Detected (Not Detect); Escherichia coli by PCR Not Detected (Not Detect); Klebsiella oxytoca by PCR Not Detected (Not Detect); Klebsiella pneumoniae by PCR Not Detected (Not Detect); Proteus by PCR Not Detected (Not Detect); Pseudomonas aeruginosa by PCR Not Detected (Not Detect); Serratia marcescens by PCR Not Detected (Not Detect); Staphylococcus aureus by PCR Not Detected (Not Detect); Staphylococcus by PCR DETECTED (Not Detect); Streptococcus agalactiae(B)PCR Not Detected (Not Detect); Streptococcus by PCR Not Detected (Not Detect); Streptococcus pneumoniae PCR Not Detected (Not Detect); Streptococcus pyogenes (A) PCR Not Detected (Not Detect); mecA Methicillin-Resist Gene DETECTED (Not Detect)
[2021-05-09] MEDS: MetroNIDAZOLE 500 MG/100 ML 500 MG/100 ML BAG IVPB SCH ×2 (10:11→17:45)
[2021-05-09 12:15] LABS: Lactate Dehydrogenase 114 Units/L (140-271); Total Protein 5.4 g/dL (6.4-8.9)
[2021-05-09 13:44] LABS: RBC,Pleural Fluid < 2000 RBC/mcL
[2021-05-09 13:56] LABS: Appearance of Pleural Fl Hazy (Clear)
[2021-05-09 15:04] LABS: Basophils,Pleural Fluid 0 %
[2021-05-09 15:14] LABS: Total Protein,Pleural Fluid 2.2 g/dL
[2021-05-09] MEDS ORDERED: Vancomycin 1,250 MG/262.5 ML IV.SOLN IVPB ONE (17:00)
[2021-05-09] MEDS: Calcium Acetate 667 MG CAPSULE PO SCH (17:55)
[2021-05-09] MEDS ORDERED: Mirtazapine 15 MG TABLET PO SCH (21:00)
[2021-05-09] MEDS: Heparin 25,000UNIT/250ML 1/2NS 25,000 UNIT/250 ML IV.SOLN IVC SCH (21:21)
[2021-05-10] MEDS: Insulin LISPRO 300 UNITS/3 ML VIAL SUBQ SCH ×4 (00:59→22:36)
[2021-05-10] MEDS: MetroNIDAZOLE 500 MG/100 ML 500 MG/100 ML BAG IVPB SCH ×4 (01:02→23:18)
[2021-05-10 05:01] LABS: Hemoglobin 9.6 g/dL (11.5-15.4); Mean Platelet Volume 10.3 fL (9.4-12.4)
[2021-05-10 05:02] LABS: Basophils # 0.1 K/mcL (0.0-0.2); Basophils % 0.9 %; Eosinophils # 0.2 K/mcL (0.0-0.6); Eosinophils % 2.6 %; Hematocrit 33.5 % (35.3-44.9); Immature Granulocytes % 0.4 % (0-4); Lymphocytes # 1.3 K/mcL (0.6-4.6); Mean Corpuscular HGB Conc 28.7 g/dL (31.6-35.5); Mean Corpuscular Hemoglobin 31.8 pg (28.0-33.3); Mean Corpuscular Volume 110.9 fL (83.0-100.0); Monocytes # 0.6 K/mcL (0.0-1.3); Monocytes % 8.7 %; Neutrophils # 4.8 K/mcL (1.6-8.9); Platelet Count 157 K/mcL (140-400); Red Blood Count 3.02 M/mcL (3.82-4.97); Red Cell Distribution Width 15.5 % (11.5-14.5); Segmented Neutrophils % 68.4 %
[2021-05-10 05:22] LABS: Calcium 8.1 mg/dL (8.6-10.3); Magnesium 1.6 mg/dL (1.6-2.6); Phosphorous 3.9 mg/dL (2.7-4.5); Potassium 4.2 mEq/L (3.5-5.1)
[2021-05-10 05:29] LABS: Platelet Estimate Normal (Normal)
[2021-05-10] MEDS: Calcium Acetate 667 MG CAPSULE PO SCH ×3 (09:13→17:40)
[2021-05-10] MEDS: Apixaban 5 MG TABLET PO SCH ×2 (11:04→23:18)
[2021-05-10] MEDS ORDERED: Calcium Acetate 667 MG CAPSULE PO SCH (12:00)
[2021-05-10] MEDS: carvediloL 6.25 MG TABLET PO SCH (17:39)
[2021-05-10] MEDS ORDERED: Insulin LISPRO 300 UNITS/3 ML VIAL SUBQ SCH (20:00)
[2021-05-11 01:42] LABS: Basophils % 0.5 %; Eosinophils # 0.3 K/mcL (0.0-0.6); Eosinophils % 4.2 %; Hematocrit 30.6 % (35.3-44.9); Hemoglobin 9.2 g/dL (11.5-15.4); Immature Granulocytes % 0.3 % (0-4); Lymphocytes % 26.5 %; Mean Corpuscular HGB Conc 30.1 g/dL (31.6-35.5); Mean Corpuscular Hemoglobin 31.3 pg (28.0-33.3); Monocytes # 0.8 K/mcL (0.0-1.3); Monocytes % 10.4 %; Neutrophils # 4.3 K/mcL (1.6-8.9); Platelet Count 165 K/mcL (140-400); Red Blood Count 2.94 M/mcL (3.82-4.97); Red Cell Distribution Width 15.4 % (11.5-14.5); Segmented Neutrophils % 58.1 %; White Blood Count 7.4 K/mcL (4.3-11.1)
[2021-05-11 01:46] LABS: Mean Corpuscular Volume 104.1 fL (83.0-100.0)
[2021-05-11 01:59] LABS: Calcium 7.9 mg/dL (8.6-10.3); Magnesium 1.5 mg/dL (1.6-2.6); Phosphorous 3.5 mg/dL (2.7-4.5); Potassium 4.2 mEq/L (3.5-5.1)
[2021-05-11] MEDS: Calcium Acetate 667 MG CAPSULE PO SCH ×3 (08:17→15:47)
[2021-05-11] MEDS: MetroNIDAZOLE 500 MG/100 ML 500 MG/100 ML BAG IVPB SCH (08:17)
[2021-05-11] MEDS: Apixaban 5 MG TABLET PO SCH ×2 (08:18→22:15)
[2021-05-11] MEDS: carvediloL 6.25 MG TABLET PO SCH ×2 (08:18→15:47)
[2021-05-11] MEDS: NIFEdipine XL (24 HR) 30 MG TAB.ER.24 PO SCH (08:18)
[2021-05-11] MEDS: Insulin LISPRO 300 UNITS/3 ML VIAL SUBQ SCH ×4 (08:18→21:55)
[2021-05-11] MEDS ORDERED: LEVOFLOXACIN 500 MG/100 ML MLS IVPB SCH (09:00)
[2021-05-11] MEDS ORDERED: metroNIDAZOLE 500 MG TABLET PO SCH (15:00)
[2021-05-11] MEDS ORDERED: levoFLOXacin 500 MG/100 ML 500 MG/100 ML BAG IVPB SCH (17:00)
[2021-05-11] MEDS ORDERED: Doxycycline 100 MG CAPSULE PO SCH (21:00)
[2021-05-11] MEDS ORDERED: Calcium Acetate 667 MG CAPSULE PO SCH (21:00)
[2021-05-11] MEDS: metroNIDAZOLE 500 MG TABLET PO SCH (22:15)
[2021-05-12 02:39] LABS: Fluid Source for Cholesterol PLEURAL FLUID
[2021-05-12 04:55] VITALS: O2SAT 97
[2021-05-12 05:54] LABS: Basophils # 0.1 K/mcL (0.0-0.2); Basophils % 0.6 %; Eosinophils # 0.4 K/mcL (0.0-0.6); Eosinophils % 4.3 %; Hematocrit 31.3 % (35.3-44.9); Hemoglobin 9.5 g/dL (11.5-15.4); Immature Granulocytes % 0.4 % (0-4); Lymphocytes # 1.9 K/mcL (0.6-4.6); Lymphocytes % 24.1 %; Mean Corpuscular HGB Conc 30.4 g/dL (31.6-35.5); Mean Corpuscular Hemoglobin 31.1 pg (28.0-33.3); Mean Corpuscular Volume 102.6 fL (83.0-100.0); Mean Platelet Volume 10.2 fL (9.4-12.4); Monocytes # 0.8 K/mcL (0.0-1.3); Neutrophils # 4.9 K/mcL (1.6-8.9); Platelet Count 182 K/mcL (140-400); Red Blood Count 3.05 M/mcL (3.82-4.97); Red Cell Distribution Width 15.3 % (11.5-14.5); Segmented Neutrophils % 60.6 %; White Blood Count 8.1 K/mcL (4.3-11.1)
[2021-05-12 06:16] LABS: Calcium 8.7 mg/dL (8.6-10.3); Magnesium 1.8 mg/dL (1.6-2.6); Phosphorous 2.8 mg/dL (2.7-4.5); Potassium 4.4 mEq/L (3.5-5.1)
[2021-05-12 07:03] VITALS: PULSE 87
[2021-05-12] MEDS: NIFEdipine XL (24 HR) 30 MG TAB.ER.24 PO SCH (07:56)
[2021-05-12] MEDS: Calcium Acetate 667 MG CAPSULE PO SCH ×2 (07:56→13:29)
[2021-05-12] MEDS: carvediloL 6.25 MG TABLET PO SCH (07:56)
[2021-05-12] MEDS: metroNIDAZOLE 500 MG TABLET PO SCH (07:56)
[2021-05-12] MEDS: Apixaban 5 MG TABLET PO SCH (07:56)
[2021-05-12] MEDS: Insulin LISPRO 300 UNITS/3 ML VIAL SUBQ SCH ×2 (08:00→13:28)
[2021-05-12] MEDS ORDERED: 0.9 % Sodium Chloride 250 ML IVC PRN (08:01)
[2021-05-12] MEDS ORDERED: *HR* Heparin 10,000 UNIT/10 ML VIAL IV PRN (08:01)
[2021-05-12 09:13] VITALS: TEMP 97.9
[2021-05-12 10:53] LABS: Cholesterol,Body Fluid 36 mg/dL
[2021-05-12 12:29] VITALS: BP 113/74
== END 2021-05-12 15:35 | disposition home health service (06) | DRG 193 ==
LOC: EMEROOARM 11:55 → 3NENU 11:55 → SUATTDRO 15:53 → 3NENU 16:49
PROVIDERS: ADMIT Pharmacist; ATTEND Internal Medicine